=== PATIENT | male | born 1990 | race Caucasian/White ===

== ENCOUNTER 2021-04-06 22:27 | Emergency (ER) | payer BC, SELFPAY ==
[2021-04-06 22:44] VITALS: BP 120/78; PULSE 121; RESP 28; TEMP 38.3; O2SAT 95; BMI 48.1
--- NOTE | 2021-04-06 22:52 | CT_ITS ---
PROCEDURE INFORMATION: Exam: CTA Chest With Contrast Exam date and time: 04/06/2021 10:52 PM Age: 30 years old Clinical indication: Sternal or substernal pain; Patient HX: SOA, covid positive, smoker, chest pain in center of chest; Additional info: Shortness of air, covid TECHNIQUE: Imaging protocol: Computed tomographic angiography of the chest with contrast. 3D rendering (Not supervised by radiologist): MIP and/or 3D reconstructed images were created by the technologist. Total images: 988 Radiation optimization: All CT scans at this facility use at least one of these dose optimization techniques: automated exposure control; mA and/or kV adjustment per patient size (includes targeted exams where dose is matched to clinical indication); or iterative reconstruction. Contrast material: 370 ISOVUE; Contrast volume: 70 ml; Contrast route: INTRAVENOUS (IV); COMPARISON: CR XR CHEST 2V 04/06/2021 11:14 PM FINDINGS: Pulmonary arteries: The pulmonary arteries enhance appropriately with no evidence of pulmonary embolism. Aorta: The aorta enhances appropriately without evidence of dissection or aneurysm. No mediastinal hematoma. Thyroid: The visualized thyroid gland demonstrates no gross abnormality. Lungs: Granulomatous calcifications in the left lung base. Mild bilateral bronchial wall thickening suggesting an element of bronchitis or bronchial edema, with no evidence of bronchiectasis or bronchial occlusions. Multifocal rounded predominantly peripheral alveolar opacities bilaterally consistent with multifocal pneumonia. Commonly reported imaging features of COVID-19 pneumonia are present. Other processes such as influenza pneumonia and organizing pneumonia, as can be seen with drug toxicity and connective tissue disease, can cause a similar imaging pattern. No pulmonary mass lesions are identified. Pleural spaces: No pleural effusion. No pneumothorax. Heart: Heart size normal. No pericardial effusion. Mediastinal space: The esophagus is largely contracted but demonstrates no gross abnormality. 12 mm calcification adjacent to the distal esophagus likely representing a granulomatous calcification. Lymph nodes: No supraclavicular or axillary adenopathy. No mediastinal or hilar adenopathy. Liver: Moderate fatty infiltration of the liver. Spleen: Granulomatous calcifications in the spleen without acute splenic abnormality. Bones/joints: No acute osseous abnormalities are identified. Bridging ossification across multiple mid and lower thoracic spine segments suggesting diffuse idiopathic skeletal hyperostosis (DISH). Soft tissues: The soft tissues of the chest wall demonstrate no acute abnormality. IMPRESSION: 1. No evidence of pulmonary embolism or aortic dissection. 2. Multifocal bilateral alveolar opacities consistent with multifocal pneumonia. 3. Evidence of DISH in the thoracic spine. 4. Fatty liver.
--- NOTE | 2021-04-06 22:52 | XR_ITS ---
PROCEDURE INFORMATION: Exam: XR Chest Exam date and time: 04/06/2021 10:52 PM Age: 30 years old Clinical indication: Sternal or substernal pain; Patient HX: SOA, chest pain, cough, smoker, covid positive; Additional info: Shortness of air TECHNIQUE: Imaging protocol: XR of the chest. Views: 2 views. Total images: 2 COMPARISON: No relevant prior studies available. FINDINGS: Lungs: Low lung volumes. Pulmonary vasculature grossly normal. Multifocal bilateral alveolar opacities consistent with multifocal pneumonia. Pleural spaces: No pleural effusion. No pneumothorax. Heart/Mediastinum: Heart size normal. No tracheal/mediastinal shift. Bones/joints: No acute osseous abnormalities are identified. IMPRESSION: Multifocal bilateral alveolar opacities consistent with multifocal pneumonia.
--- NOTE | 2021-04-06 22:54 | ECG_ITS ---
APPROVED REPORT Exam: Resting ECG HR:122 bpm ECG Measurements Heart Rate 122 AXES MI 156 P 24 QRSd 76 QRS -17 QT 296 T 64 QTc 421 Conclusion Sinus tachycardia Septal infarct, age undetermined Abnormal ECG Electronically signed by : Rickie Cueva MD 04/07/2021 16:54:52
[2021-04-06 22:57] LABS: Influenza A, PCR Not Detected (NotDetected); Influenza B, PCR Not Detected (NotDetected)
[2021-04-06 22:59] LABS: Basophils # 0.1 K/mm3 (0-0.2); Basophils % 2.3 % (0.1-2.0); Eosinophils % 0.3 % (0.1-12.0); Hematocrit 48.9 % (42.0-52.0); Hemoglobin 16.8 g/dL (14.1-18.0); Mean Corpuscular HGB Conc 34.4 g/dL (31.8-35.4); Mean Corpuscular Volume 84.4 fl (80-94); Mean Platelet Volume 7.6 fl (7.4-10.4); Monocytes # 0.5 K/mm3 (0.1-1.0); Monocytes % 8.5 % (1.7-9.3); Neutrophils # 4.2 K/mm3 (1.8-7.8); Neutrophils % 71.9 % (37.0-80.0); Platelet Count 112 K/mm3 (142-424); Red Blood Count 5.79 M/mm3 (4.60-6.20); Red Cell Distribution Width 13.7 % (11.5-17.5); White Blood Count 5.9 K/mm3 (4.8-10.8)
[2021-04-06 23:00] VITALS: BP 115/83; PULSE 126; O2SAT 92
[2021-04-06 23:00] LABS: Potassium 4.2 mmoL/L (3.5-5.1); Sodium 136 mmol/L (136-145)
[2021-04-06 23:01] LABS: Chloride 101 mmol/L (98-107)
[2021-04-06 23:03] LABS: Alanine Aminotransferase 98 U/L (12-78); Albumin Level 4.5 g/dl (3.5-5.0); Albumin/Globulin Ratio 1.8 (1.1-1.8); Alkaline Phosphatase 61 U/L (38-126); Anion Gap 13.2 mEq/L (5-15); Aspartate Amino Transferase 95 U/L (17-59); Bilirubin,Total 0.8 mg/dl (0.2-1.3); Blood Urea Nitrogen 10 mg/dl (9-20); Carbon Dioxide 26 mmol/L (22.0-30.0); Creatinine Clearance Estimated 140 mL/min (50-200); Estimated Glomerular Filt Rate 99 ml/min (>60); GFR (African American) 120 ML/MIN (>60); Globulin 2.5 g/dL (1.3-3.2)
[2021-04-06 23:04] LABS: Calcium 8.5 mg/dl (8.4-10.2); Glucose 121 mg/dl (74-100)
[2021-04-06 23:18] LABS: Coronavirus 19, PCR Detected (NotDetected)
[2021-04-06 23:21] LABS: Troponin I < 0.01 ng/ml (0.00-0.034)
--- NOTE | 2021-04-07 00:47 | HMH.EDSOB ---
ED Disposition Clinical Impression: COVID-19 with pulmonary comorbidity Obesity Qualifiers: Obesity type: due to excess calories Obesity classification: adult class 3 (BMI >= 40) Serious obesity comorbidity presence: with serious comorbidity Body mass index: BMI 45.0-49.9 Qualified Code(s): E66.01 - Morbid (severe) obesity due to excess calories; Z68.42 - Body mass index [BMI] 45.0-49.9, adult Disposition: Home, Self-Care Condition on Discharge: Good Instructions: DI for COVID-19 (Suspected or Confirmed ) Additional Instructions: call pcp for follow up Prescriptions: predniSONE [Prednisone 20mg Tab] 20 mg PO BID #10 tab Transmission Status: Pending to [facility]/pharmacy #[id number] Azithromycin [Zithromax 250mg tab] 250 mg PO DIRECTED #6 tab Transmission Status: Pending to [facility]/pharmacy #[id number] ondansetron HCL [Zofran 4mg Tab] 4 mg PO TID #15 tab Transmission Status: Pending to [facility]/pharmacy #[id number] Referrals: Rickie Munguia MD [Primary Care Provider] - - Critical Care Critical Care Time: No Attestation: On 04/06/21, the high probability of a clinically significant, sudden or life threatening deterioration of the following system(s) required my full and direct attention, intervention and personal management. The time I documented below is in addition to time spent performing reported procedures but includes the following listed in this critical care notation. Medical Decision Making - Medical Records Medical records reviewed: Yes: I reviewed the patient's medical records. - Arian Inquiry Pt receiving controlled substance: No Vital Signs: 04/06/21 22:44 04/06/21 23:00 Temperature 100.9 F H Temperature Source Oral Pulse Rate 126 H Pulse Rate [Right Brachial] 121 H Respiratory Rate 28 H Blood Pressure 115/83 Blood Pressure [Right Arm] 120/78 Blood Pressure Mean [Right Arm] 92 Blood Pressure Source [Right Arm] Automatic Cuff Blood Pressure Position [Right Arm] Sitting 02 Sat by Pulse Oximetry 95 92 L Oxygen Delivery Method Room Air - Lab Data Lab results reviewed: Yes: I reviewed the patient's lab results. Lab Results 04/06/21 22:48: WBC 5.9, RBC 5.79, Hgb 16.8, Hct 48.9, MCV 84.4, MCH 29.0, MCHC 34.4, RDW 13.7, Plt Count 112 L, MPV 7.6, Neut % (Auto) 71.9, Lymph % (Auto) 17.0, [place] % (Auto) 8.5, Eos % (Auto) 0.3, Baso % (Auto) 2.3 H, Neut # (Auto) 4.2, Lymph # (Auto) 1.0, [place] # (Auto) 0.5, Eos # (Auto) 0.0, Baso # (Auto) 0.1 04/06/21 22:48: Sodium 136, Potassium 4.2, Chloride 101, Carbon Dioxide 26, Anion Gap 13.2, BUN 10, Creatinine 0.90, Estimated Creat Clear 140, Estimated GFR 99, Est GFR ( Amer) 120, Glucose 121 H, Calcium 8.5, Total Bilirubin 0.8, AST 95 H, ALT 98 H, Alkaline Phosphatase 61, Total Protein 7.0, Albumin 4.5, Globulin 2.5, Albumin/Globulin Ratio 1.8 04/06/21 22:48: SARS-CoV-2 (PCR) Detected A, Influenza A Untype (PCR) Not detected, Influenza Type B (PCR) Not detected 04/06/21 22:48: Troponin I < 0.01 Result diagrams: 04/06/21 22:48 04/06/21 22:48 Orders (Tests/Meds): ED MEDICATIONS Generic Name Dose Route Start Last Admin Trade Name Freq PRN Reason Stop Dose Admin Sodium Chloride 1,000 mls @ 999 mls/hr 04/06/21 23:00 04/06/21 22:57 Sod Chlor 0.9% 1000ml Bag IV 04/07/21 00:00 999 mls/hr .Q1H1M ERNESTO Administration Discontinued Medications Generic Name Dose Route Start Last Admin Trade Name Freq PRN Reason Stop Dose Admin Dexamethasone Sodium Phosphate 10 mg 04/06/21 22:53 04/06/21 22:56 Dexamethasone 4mg/Ml 5ml Mdv IV 04/06/21 22:54 10 mg ONCE ONE Administration Iopamidol 70 ml 04/06/21 23:57 04/06/21 23:58 Iopamidol-370 (76%);100ml Bottle IV 04/06/21 23:58 70 ml ONCE ONE Administration Ketorolac Tromethamine 30 mg 04/06/21 22:53 04/06/21 22:56 Ketorolac 30mg/Ml Vial IV 04/06/21 22:54 30 mg ONCE ONE Administration Ondansetron HCl 4 mg 04/06/21 22:53 04/06/21 22:56 Ondansetron 4mg/2ml Vial
[2021-04-07 01:00] VITALS: BP 125/86; PULSE 88; RESP 19; TEMP 37.2; O2SAT 98
== END 2021-04-07 01:10 | disposition home or self-care (01) ==
PROVIDERS: Emergency Provider Emergency Medicine; PCP Family Medicine
DX: U07.1 COVID-19 (principal); E66.01 Morbid (severe) obesity due to excess calories; Z68.42 Body mass index [BMI] 45.0-49.9, adult
CPT/HCPCS: 71046; 71275; 80053; 84484; 85025; 93005; 96365; 96375; 99283; J2405; Q9967; U0003

== ENCOUNTER 2021-04-08 18:44 | Inpatient (IN) | payer BC, SELFPAY ==
[2021-04-08] VITALS (7 sets, daily range): BP systolic 106–131; BP diastolic 64–86; PULSE 90–118; RESP 18–28; TEMP 36.8–38.4; O2SAT 92–98; BMI 47.5
--- NOTE | 2021-04-08 19:19 | ECG_ITS ---
APPROVED REPORT Exam: Resting ECG HR:85 bpm ECG Measurements Heart Rate 85 AXES DE 152 P 10 QRSd 78 QRS -13 QT 334 T 35 QTc 397 Conclusion Normal sinus rhythm Inferior infarct, age undetermined Abnormal ECG Electronically signed by : Rickie Cueva MD 04/12/2021 11:52:14
--- NOTE | 2021-04-08 19:20 | XR_ITS ---
PROCEDURE INFORMATION: Exam: XR Chest Exam date and time: 04/08/2021 7:20 PM Age: 30 years old Clinical indication: Shortness of breath and other: Covid 19 positive; Additional info: Shortness of air covid positive TECHNIQUE: Imaging protocol: XR of the chest. Views: 1 view. COMPARISON: CR XR CHEST 2V 04/06/2021 11:14 PM FINDINGS: Airway: Patent Lungs: Bilateral ground-glass and patchy airspace opacities are seen scattered throughout the lungs. Pleural spaces: Unremarkable. No pleural effusion. No pneumothorax. Heart/Mediastinum: Unremarkable. No cardiomegaly. Bones/joints: No acute skeletal abnormality or aggressive osseous lesion. IMPRESSION: Moderate, diffuse, and bilateral acute airspace disease compatible with COVID-19 pneumonia in this patient with a positive history.
--- NOTE | 2021-04-08 19:43 | PC.NURSE ---
pt adamant he doesn't want to have ct completed.
[2021-04-08 19:57] LABS: Basophils % 0.4 % (0.1-2.0); Hemoglobin 15.2 g/dL (14.1-18.0); Lymphocytes # 1.3 K/mm3 (0.7-4.5); Lymphocytes % 14.3 % (10-50); Mean Corpuscular HGB Conc 35.4 g/dL (31.8-35.4); Mean Corpuscular Hemoglobin 29.7 pg (27.0-31.2); Mean Corpuscular Volume 83.9 fl (80-94); Monocytes # 0.7 K/mm3 (0.1-1.0); Monocytes % 7.5 % (1.7-9.3); Neutrophils % 77.8 % (37.0-80.0); Platelet Count 147 K/mm3 (142-424); Red Blood Count 5.12 M/mm3 (4.60-6.20)
[2021-04-08 20:03] LABS: Alanine Aminotransferase 65 U/L (12-78); Albumin Level 3.6 g/dl (3.5-5.0); Albumin/Globulin Ratio 1.5 (1.1-1.8); Alkaline Phosphatase 47 U/L (38-126); Anion Gap 11.7 mEq/L (5-15); Aspartate Amino Transferase 87 U/L (17-59); Bilirubin,Total 1.2 mg/dl (0.2-1.3); Blood Urea Nitrogen 13 mg/dl (9-20); Carbon Dioxide 25 mmol/L (22.0-30.0); Chloride 98 mmol/L (98-107); Creatinine Clearance Estimated 179 mL/min (50-200); Estimated Glomerular Filt Rate 132 ml/min (>60); GFR (African American) 160 ML/MIN (>60); Globulin 2.4 g/dL (1.3-3.2); Glucose 116 mg/dl (74-100); Potassium 3.7 mmoL/L (3.5-5.1); Sodium 131 mmol/L (136-145)
[2021-04-08 20:16] LABS: NT Pro Brain Natriuretic Pep. 66.5 pg/mL (0-125)
[2021-04-08 20:20] LABS: Procalcitonin 0.317 ng/mL (0.0-2.0); Troponin I < 0.01 ng/ml (0.00-0.034)
--- NOTE | 2021-04-08 20:54 | HMH.EDSOB ---
ED Disposition Clinical Impression: COVID-19 with pulmonary comorbidity Disposition: Admitted As Inpatient Condition on Discharge: Good - Critical Care Critical Care Time: No Attestation: On 04/08/21, the high probability of a clinically significant, sudden or life threatening deterioration of the following system(s) required my full and direct attention, intervention and personal management. The time I documented below is in addition to time spent performing reported procedures but includes the following listed in this critical care notation. Medical Decision Making - Medical Records Medical records reviewed: Yes: I reviewed the patient's medical records. - Arian Inquiry Pt receiving controlled substance: No Vital Signs: 04/08/21 19:14 Temperature 101.2 F H Temperature Source Oral Pulse Rate [Right Brachial] 118 H Respiratory Rate 28 H Blood Pressure [Right Arm] 127/71 Blood Pressure Mean [Right Arm] 89 Blood Pressure Source [Right Arm] Automatic Cuff Blood Pressure Position [Right Arm] Sitting 02 Sat by Pulse Oximetry 92 L Oxygen Delivery Method Room Air - Lab Data Lab results reviewed: Yes: I reviewed the patient's lab results. Lab Results 04/08/21 19:40: WBC 9.0 D, RBC 5.12, Hgb 15.2, Hct 43.0, MCV 83.9, MCH 29.7, MCHC 35.4, RDW 14.0, Plt Count 147 D, MPV 8.0, Neut % (Auto) 77.8, Lymph % (Auto) 14.3, [place] % (Auto) 7.5, Eos % (Auto) 0.0 L, Baso % (Auto) 0.4, Neut # (Auto) 7.0, Lymph # (Auto) 1.3, [place] # (Auto) 0.7, Eos # (Auto) 0.0, Baso # (Auto) 0.0 04/08/21 19:40: Sodium 131 L, Potassium 3.7, Chloride 98, Carbon Dioxide 25, Anion Gap 11.7, BUN 13 D, Creatinine 0.70 D, Estimated Creat Clear 179, Estimated GFR 132, Est GFR ( Amer) 160 D, Glucose 116 H, Calcium 8.0 L, Total Bilirubin 1.2, AST 87 H, ALT 65 D, Alkaline Phosphatase 47, Troponin I < 0.01, NT-Pro-B Natriuret Pep 66.5, Total Protein 6.0 L, Albumin 3.6, Globulin 2.4, Albumin/Globulin Ratio 1.5 04/08/21 19:40: Procalcitonin 0.317 Result diagrams: 04/08/21 19:40 04/08/21 19:40 Orders (Tests/Meds): ED MEDICATIONS Generic Name Dose Route Start Last Admin Trade Name Freq PRN Reason Stop Dose Admin Sodium Chloride 1,000 mls @ 999 mls/hr 04/08/21 19:30 04/08/21 19:30 Sod Chlor 0.9% 1000ml Bag IV 04/08/21 20:30 999 mls/hr .Q1H1M ERNESTO Administration Discontinued Medications Generic Name Dose Route Start Last Admin Trade Name Freq PRN Reason Stop Dose Admin Acetaminophen 1,000 mg 04/08/21 19:19 04/08/21 19:28 Acetaminophen 500mg Tab PO 04/08/21 19:20 1,000 mg ONCE ONE Administration Dexamethasone Sodium Phosphate 10 mg 04/08/21 19:19 04/08/21 19:28 Dexamethasone 4mg/Ml 5ml Mdv IV 04/08/21 19:20 10 mg ONCE ONE Administration Ketorolac Tromethamine 30 mg 04/08/21 19:19 04/08/21 19:29 Ketorolac 30mg/Ml Vial IV 04/08/21 19:20 30 mg ONCE ONE Administration Ondansetron HCl 4 mg 04/08/21 19:28 04/08/21 19:29 Ondansetron 4mg/2ml Vial IV 04/08/21 19:29 4 mg ONCE ONE Administration ORDERS Category Date Time Status Lactic Acid Stat Lab 04/08/21 19:32 Ordered Troponin I Q3H Lab 04/08/21 22:30 Ordered Troponin I Q3H Lab 04/09/21 01:30 Ordered Blood Culture Stat Micro 04/08/21 19:32 Ordered - Radiology Data #1 Image(s): Chest Image Reviewed: Yes I reviewed the patient's radiology image, Yes I have reviewed radiologist's interpretation Preliminary Findings: Abnormal - ECG Data Tracing #1 Normal Sinus Rhythm: Yes Ischemic changes: non-specific ST-T wave changes - Physician Consults Physician Consulted: kathi Reason -: Admission Medical Decision Narrative: progressive sx with covid-19with confusion/fever/abn cxr - no enceph or meningitis Resp/SOB HPI - General Chief Complaint: Shortness of Breath/Dyspnea Stated Complaint: covid+, fever, soa Time Seen by Provider: 04/08/21 20:00 Mode of Arrival: Family Vehicle Source of Information:
--- NOTE | 2021-04-08 21:55 | PC.NURSE ---
speaking with dr armenta and dr wick.
[2021-04-08 22:50] LABS: Ferritin 1320 ng/ml (17.9-464)
[2021-04-09] VITALS: BP 111/56; PULSE 91; RESP 20; TEMP 36.7; O2SAT 89
--- NOTE | 2021-04-09 03:45 | PC.NURSE ---
Patient is a new admission this shift. He is alert and oriented x4. He is ambulatory. Patient has 18 in his right hand with NS @ 100. Patient lung sounds are diminished throughout. He has rested well since his arrival to the unit. Patient is on 2L NC. Vital signs are stable, will continue to monitor.
[2021-04-09 04:00] VITALS: BP 123/51; PULSE 87; RESP 18; TEMP 36.3; O2SAT 90
--- NOTE | 2021-04-09 05:01 | PC.NURSE ---
Bed unable to weigh. Standing scale unavailable
[2021-04-09 06:34] LABS: Basophils # 0.1 K/mm3 (0-0.2); Basophils % 0.9 % (0.1-2.0); Eosinophils % 0.1 % (0.1-12.0); Hematocrit 42.8 % (42.0-52.0); Hemoglobin 14.8 g/dL (14.1-18.0); Lymphocytes % 14.3 % (10-50); Mean Corpuscular HGB Conc 34.6 g/dL (31.8-35.4); Mean Corpuscular Hemoglobin 29.7 pg (27.0-31.2); Mean Corpuscular Volume 85.6 fl (80-94); Mean Platelet Volume 8.1 fl (7.4-10.4); Monocytes # 0.6 K/mm3 (0.1-1.0); Monocytes % 8.2 % (1.7-9.3); Neutrophils # 5.5 K/mm3 (1.8-7.8); Neutrophils % 76.6 % (37.0-80.0); Platelet Count 126 K/mm3 (142-424); Red Cell Distribution Width 13.8 % (11.5-17.5); White Blood Count 7.1 K/mm3 (4.8-10.8)
[2021-04-09 06:46] LABS: Chloride 102 mmol/L (98-107); Potassium 5.1 mmoL/L (3.5-5.1); Sodium 135 mmol/L (136-145)
[2021-04-09 06:49] LABS: Anion Gap 13.1 mEq/L (5-15); Blood Urea Nitrogen 13 mg/dl (9-20); Carbon Dioxide 25 mmol/L (22.0-30.0); Creatinine Clearance Estimated 209 mL/min (50-200); Estimated Glomerular Filt Rate 158 ml/min (>60); GFR (African American) 191 ML/MIN (>60)
[2021-04-09 06:50] LABS: Calcium 8.1 mg/dl (8.4-10.2); Glucose 142 mg/dl (74-100); Magnesium 1.7 mg/dl (1.6-2.3)
[2021-04-09 08:00] VITALS: BP 121/80; PULSE 89; RESP 20; TEMP 36.7; O2SAT 94
[2021-04-09 09:57] LABS: Mycoplasma Pneumo IGM (Rapid) Non-Reactive (Non-Reactiv)
--- NOTE | 2021-04-09 11:22 | P.CONPHA_ITS ---
[facility] Pharmacy VTE Monitoring - Patient Demographics Admission date: 04/09/21 Report Date: 04/09/21 Time: 11:22 Allergies/Adverse Reactions: Patient Allergies No Known Allergies Allergy (Verified 04/06/21 22:49) Height: 1.88 m Weight: 167.829 kg Patient Problems: Current Active Problems COVID-19 with pulmonary comorbidity (Acute) - VTE Risk Labs: VTE Related Lab Results Hgb 14.8 g/dL (14.1-18.0) 04/09/21 05:50 Hct 42.8 % (42.0-52.0) 04/09/21 05:50 Plt Count 126 K/mm3 (142-424) L 04/09/21 05:50 BUN 13 mg/dl (9-20) 04/09/21 05:50 Creatinine 0.60 mg/dl (0.66-1.25) L 04/09/21 05:50 Estimated Creat Clear 209 mL/min (50-200) 04/09/21 05:50 VTE Score: 1 VTE Risk Level: Very Low Risk - Prophylaxis Types of VTE Prophylaxis: TEDS Knee High (HERSON HOSE AND LOVENOX), Pharmacological Pharmacologic Type: Enoxaparin
--- NOTE | 2021-04-09 11:25 | HMH.HP ---
*Admission Date: 04/09/21 *Chief complaint: Shortness of breath *History of present illness: Patient is a 30 [address] old patient of [address] Ekaterina Tinoco in [place], [place] who presented to [facility] ER last night complaining of progressively worse shortness of breath. Patient states he started feeling bad about 1 week ago and was diagnosed with Covid-19 on 04/03/21. His initial symptom was fatigue but he has since developed fever, cough, nasal congestion and shortness of breath. He has a history of HTN and obesity but no other medical problems. Patient was seen in the ER a few days ago and was started on Zithromax, Prednisone and Zofran. He was scheduled for an antibody infusion today but states he felt much worse last night so he came back to the ER. [facility] History Medical History: Reports:: Hypertension Denies:: Cancer, Diabetes Mellitus Type 1, Diabetes Mellitus Type 2, MRSA *Have you ever received a pneumonia vaccine?: No *Have you received a flu vaccine this season?: No Other Surgeries: Yes: No Previous Surgery Amputation: No - *Social History Last grade of school completed: High school graduate Smoking Status: Current every day smoker Tobacco Type: cigarettes # Packs/Day (cigarettes): 1 Alcohol Intake: never Alcohol Intake Frequency:: holidays/special occasions only *Occupational Status:: employed Household Members: spouse *Travel in the last 8 weeks: None Family Hx:: Hypertension Review of Systems - Constitutional Reports body ache(s), Reports chills, Reports fever(s) - Eyes Denies blurry vision - ENT Denies bleeding gums - *Cardiovascular Denies chest pain - *Respiratory Reports cough - *Gastrointestinal Reports nausea, Denies abdominal pain, Denies vomiting - *Genitourinary Denies difficulty urinating - *Musculoskeletal Denies joint pain - Integumentary/Breasts Denies rash - *Neurologic Reports headache(s), Denies dizziness, Denies localized weakness, Denies seizure-like activity - Psychiatric Denies confusion Meds Home Medications Medication Instructions Recorded Confirmed Type Fluticasone Propionate 1 spray IH DAILY 04/06/21 04/08/21 History allopurinoL [Allopurinol 100mg 100 mg PO DAILY 04/06/21 04/09/21 History tablet] lisinopriL [Lisinopril] 10 mg PO DAILY 04/06/21 04/09/21 History ondansetron HCL [Zofran 4mg Tab] 4 mg PO TID #15 tab 04/07/21 04/08/21 Rx Azithromycin [Zithromax 250mg 250 mg PO DIRECTED 04/08/21 04/08/21 History tab] predniSONE [Prednisone 20mg 20 mg PO BID 04/08/21 04/08/21 History Tab] Allergies Allergy/AdvReac Type Severity Reaction Status Date / Time No Known Allergies Allergy Verified 04/06/21 22:49 Exam Vital signs and Labs for Last 24 Hours: Temp Pulse Resp BP Pulse Ox 98.1 F 89 20 121/80 94 L 04/09/21 08:00 04/09/21 08:00 04/09/21 08:00 04/09/21 08:00 04/09/21 08:00 Laboratory Results - last 24 hr 04/08/21 19:40: WBC 9.0 D, RBC 5.12, Hgb 15.2, Hct 43.0, MCV 83.9, MCH 29.7, MCHC 35.4, RDW 14.0, Plt Count 147 D, MPV 8.0, Neut % (Auto) 77.8, Lymph % (Auto) 14.3, [place] % (Auto) 7.5, Eos % (Auto) 0.0 L, Baso % (Auto) 0.4, Neut # (Auto) 7.0, Lymph # (Auto) 1.3, [place] # (Auto) 0.7, Eos # (Auto) 0.0, Baso # (Auto) 0.0 04/08/21 19:40: Sodium 131 L, Potassium 3.7, Chloride 98, Carbon Dioxide 25, Anion Gap 11.7, BUN 13 D, Creatinine 0.70 D, Estimated Creat Clear 179, Estimated GFR 132, Est GFR ( Amer) 160 D, Glucose 116 H, Calcium 8.0 L, Total Bilirubin 1.2, AST 87 H, ALT 65 D, Alkaline Phosphatase 47, Troponin I < 0.01, NT-Pro-B Natriuret Pep 66.5, Total Protein 6.0 L, Albumin 3.6, Globulin 2.4, Albumin/Globulin Ratio 1.5 04/08/21 19:40: Procalcitonin 0.317 04/08/21 19:40: Ferritin 1320 H 04/09/21 05:50: WBC 7.1, RBC 5.00, Hgb 14.8, Hct 42.8, MCV 85.6, MCH 29.7, MCHC 34.6, RDW 13.8, Plt Count 126 L, MPV 8.1, Neut % (Auto) 76.6, Lymph % (Auto) 14.3, [place] % (Auto) 8.2, Eos % (Auto) 0.1, Baso % (Auto) 0.9, Neut # (Auto) 5.
[2021-04-09 11:43] VITALS: BP 127/82; PULSE 89; RESP 20; TEMP 36.7; O2SAT 92
[2021-04-09 14:14] LABS: Lactic Acid 0.9 mmol/L (0.7-2.1)
[2021-04-09 15:45] VITALS: BP 107/74; PULSE 95; RESP 18; TEMP 37.4; O2SAT 93
--- NOTE | 2021-04-09 16:39 | PC.NURSE ---
PT IS AOX4, ABLE TO MAKE NEEDS KNOWN TO STAFF, HE HAS AMBULATED IN ROOM INDEPENDENTLY. CAN TAKE SELF TO BATHROOM NEEDED, HE HAS NOT C/O PAIN OR N/V/D, HE STILL REQUIRES 2LNC FOR O2 SUPPORT, LUNGS SOUNDS ARE DIMINISHED T/O BILATERALLY, ABD IS ROUND FIRM BUT NON-TENDER WITH ACTIVE BOWEL SOUNDS, PT MADE THIS NURSE AWARE THAT SOME BLOOD TINGED SPUTUM WAS EXPECTORATED INTO THE TOILET AND A SMALL AMOUNT WAS VISUALIZED, PT HAS BEEN NORMOTENSIVE THIS SHIFT, LISINOPRIL WAS HELD THIS AM. A TEMPERATURE OF 99.3 WAS NOTED. CALL LIGHT WITHIN REACH AND NO NEEDS VOICED AT THIS TIME.
[2021-04-09 20:00] VITALS: BP 150/85; PULSE 117; RESP 28; TEMP 37.8; O2SAT 92; O2SAT 94
[2021-04-10] VITALS (7 sets, daily range): BP systolic 122–164; BP diastolic 74–91; PULSE 94–105; RESP 18–28; TEMP 36.8–37.8; O2SAT 90–93; BMI 47.5
--- NOTE | 2021-04-10 03:23 | PC.NURSE ---
Patient is alert and oriented x4. Patient had complaints of coughing up bloody sputum at the beginning of the shift. A sputum was obtained and sent to lab. Patient was febrile at the beginning of shift and was treated with Tylenol prior to this shift and then ibuprofen. Patient has thus remained afebrile. Patient's oxygen was turned up to 3L NC due to oxygen saturation dropping below 90s. Patient has maintained a oxygen saturation on 3L of 90-93%. Vital signs are stable, call light within reach, will continue to monitor.
[2021-04-10 06:32] LABS: Chloride 102 mmol/L (98-107); Potassium 3.8 mmoL/L (3.5-5.1); Sodium 135 mmol/L (136-145)
[2021-04-10 06:34] LABS: Bilirubin,Unconjugated 0.5 mg/dL (0.0-1.1); Blood Urea Nitrogen 10 mg/dl (9-20); Creatinine Clearance Estimated 209 mL/min (50-200); Estimated Glomerular Filt Rate 158 ml/min (>60); GFR (African American) 191 ML/MIN (>60)
[2021-04-10 06:35] LABS: Alanine Aminotransferase 56 U/L (12-78); Albumin Level 3.1 g/dl (3.5-5.0); Alkaline Phosphatase 45 U/L (38-126); Anion Gap 8.8 mEq/L (5-15); Aspartate Amino Transferase 69 U/L (17-59); Bilirubin,Direct 0.6 mg/dl (0.0-0.4); Bilirubin,Indirect 0.5 mg/dL (0.0-0.9); Bilirubin,Total 1.1 mg/dl (0.2-1.3); Calcium 7.9 mg/dl (8.4-10.2); Carbon Dioxide 28 mmol/L (22.0-30.0); Glucose 122 mg/dl (74-100); Total Protein,Serum 5.4 g/dl (6.3-8.2)
--- NOTE | 2021-04-10 08:42 | P.PN_ITS ---
Internal Medicine - PN: Subj *Date: 04/10/21 *Time: 09:18 Interval history: Pt feels a little better today, febrile overnight. Exam Vital signs and Labs for Last 24 Hours: Temp Pulse Resp BP Pulse Ox 98.9 F 95 H 20 146/77 H 93 L 04/10/21 08:00 04/10/21 08:00 04/10/21 08:00 04/10/21 08:00 04/10/21 08:00 Laboratory Results - last 24 hr 04/09/21 05:50: Mycoplasma pneumon IgM Non-reactive 04/09/21 13:53: Lactate 0.9 04/10/21 05:30: Sodium 135 L, Potassium 3.8 D, Chloride 102, Carbon Dioxide 28, Anion Gap 8.8, BUN 10, Creatinine 0.60 L, Estimated Creat Clear 209, Estimated GFR 158, Est GFR ( Amer) 191, Glucose 122 H, Calcium 7.9 L, Total Bilir ubin 1.1, Direct Bilirubin 0.6 H, Conjugated Bilirubin 0.0, Indirect Bilirubin 0.5, Unconjugated Bilirubin 0.5, AST 69 H, ALT 56, Alkaline Phosphatase 45, Total Protein 5.4 L, Albumin 3.1 L D Vital Signs - 24 hr 04/09/21 11:43 04/09/21 15:45 04/09/21 20:00 Temperature 98.0 F 99.3 F 100.1 F H Pulse Rate [Right Brachial] 89 95 H 117 H Respiratory Rate 20 18 28 H Blood Pressure [Right Arm] 127/82 107/74 L 150/85 H 02 Sat by Pulse Oximetry 92 L 93 L 94 L 04/10/21 00:00 04/10/21 04:00 04/10/21 08:00 Temperature 98.8 F 100.0 F H 98.9 F Pulse Rate [Right Brachial] 102 H 101 H 95 H Respiratory Rate 28 H 28 H 20 Blood Pressure [Right Arm] 135/86 164/91 H 146/77 H 02 Sat by Pulse Oximetry 90 L 90 L 93 L I & O for Last 24 hours: Intake & Output 04/07/21 04/08/21 04/09/21 04/10/21 23:59 23:59 23:59 23:59 Intake Total 1320 / 1320 2253 / 2253 Balance 1320 / 1320 2253 / 2253 Weight 370 lb Microbiology Reports for the Last 24 Hours: Microbiology 04/09/21 21:14 Sputum - Expectorated Sputum Gram Stain - Final - Constitutional no acute distress - *Routine Respiratory Exam Present: crackles (few). Absent: wheezes - *Routine Cardiovascular Exam Present: RRR Assessment and Plan (1) HTN (hypertension) Status: Acute Category: Medical Code(s): I10 - Essential (primary) hypertension (2) COVID-19 with pulmonary comorbidity Status: Acute Category: Medical Code(s): U07.1 - COVID-19; J98.4 - Other disorders of lung (3) Obesity Status: Acute Qualifiers: Obesity type: due to excess calories Obesity classification: adult class 3 (BMI >= 40) Serious obesity comorbidity presence: with serious comorbidity Body mass index: BMI 45.0-49.9 Qualified Code(s): E66.01 - Morbid (severe) obesity due to excess calories; Z68.42 - Body mass index [BMI] 45.0-49.9, adult Category: Medical Code(s): E66.9 - Obesity, unspecified (4) Pneumonia Status: Acute Category: Medical Code(s): J18.9 - Pneumonia, unspecified organism - Assessment and plan all Dx Assessment and Plan for all problems:: Continue current treatment.
--- NOTE | 2021-04-10 13:04 | CT_ITS ---
PROCEDURE: CT CHEST WO CON CLINICAL INDICATION: Hemoptysis Positive Covid19 COMPARISON: CT CT ANGIO CHEST PE PROTOCOL from 04/06/2021 TECHNIQUE: Axial images obtained with sagittal and coronal reformats. All CT scans at the facility use one or more dose reduction, viz: automated exposure control, ma/kV adjustment per patient size (including targeted exams where dose is matched to indication, i.e. head), or iterative reconstruction technique. FINDINGS: HEART AND MEDIASTINAL STRUCTURES: Initially, contrast leaked at the patient's IV site. The scan was repeated and then the IV infiltrated. Patient refused additional contrast infusion. No large central pulmonary embolus was evident on the initial scan. Peripheral pulmonary vessels are not opacified well enough to evaluate for pulmonary embolus. No evidence of aortic aneurysm. LUNGS AND PLEURAL SPACES: Multifocal areas of consolidation consistent with Covid19 pneumonia which has progressed since the previous exam. This is in both upper and lower lobes bilaterally and right middle lobe. No effusions. No evidence of pneumothorax. BONY STRUCTURES: There is kyphosis. There is ankylosis of the thoracic spine. UPPER ABDOMEN: Hepatosplenomegaly with diffuse hepatic steatosis. ADDITIONAL FINDINGS: No other significant abnormalities. IMPRESSION: 1. No large central pulmonary emboli apparent. IV malfunction as described above. 2. Progression of multifocal areas of pneumonia consistent with Covid19 pneumonia 3. No evidence of pneumothorax Dictated by: Aamir Ramos MD 04/10/2021 18:02 Aamir Ramos MD in [place] 04/10/2021 18:02
--- NOTE | 2021-04-10 13:10 | HMH.ITSTN ---
MARTINA GOLDBERG, WILL LET US KNOW WHEN NEW IV IS ACCESSED. NEED A 20g IN AC
--- NOTE | 2021-04-10 16:00 | HMH.ITSTN ---
CONTRAST WAS INJECTED ON INITIAL SCAN AND IV LEAKED; PT WAS CLEANED UP AND IV TIGHTENED AND RE-TAPED; IV WAS FLUSHED AGAIN WITH ADEQUATE BLOOD RETURN AND WAS EASY TO FLUSH; WHEN RE-SCANNING, IV INFILTRATED. PT REFUSED ANOTHER IV WHILE IN SCAN ROOM; MARTINA GOLDBERG, WAS NOTIFIED BEFORE PT WENT BACK UPSTAIRS.
[2021-04-11] VITALS (7 sets, daily range): BP systolic 97–168; BP diastolic 51–96; PULSE 81–97; RESP 18–21; TEMP 36.5–37.3; O2SAT 91–94
--- NOTE | 2021-04-11 04:21 | PC.NURSE ---
PATIENT IS A7OX4. NO COMPLAINTS ON PAIN. STILL REMAINS ON 4L NC AND O2 SATURATIONS REMAIN IN THE LOWER TO MID 90'S. PATIENT WAS PLEASANT THROUGHOUT SHIFT AND RESTED SOME. VSS. NO FURTHER CONCERNS NOTED.
[2021-04-11 08:38] LABS: Chloride 102 mmol/L (98-107); Potassium 4.3 mmoL/L (3.5-5.1); Sodium 136 mmol/L (136-145)
[2021-04-11 08:41] LABS: Anion Gap 9.3 mEq/L (5-15); Blood Urea Nitrogen 10 mg/dl (9-20); Calcium 8.2 mg/dl (8.4-10.2); Carbon Dioxide 29 mmol/L (22.0-30.0); Creatinine Clearance Estimated 209 mL/min (50-200); Estimated Glomerular Filt Rate 158 ml/min (>60); GFR (African American) 191 ML/MIN (>60); Glucose 96 mg/dl (74-100)
[2021-04-11 08:43] LABS: Bilirubin,Unconjugated 0.5 mg/dL (0.0-1.1)
[2021-04-11 08:44] LABS: Alanine Aminotransferase 54 U/L (12-78); Albumin Level 3.3 g/dl (3.5-5.0); Alkaline Phosphatase 35 U/L (38-126); Aspartate Amino Transferase 71 U/L (17-59); Bilirubin,Direct 0.7 mg/dl (0.0-0.4); Bilirubin,Indirect 0.4 mg/dL (0.0-0.9); Bilirubin,Total 1.1 mg/dl (0.2-1.3); Total Protein,Serum 5.9 g/dl (6.3-8.2)
--- NOTE | 2021-04-11 09:10 | HMH.ACPN2 ---
Internal Medicine - PN: Subj *Date: 04/11/21 *Time: 09:10 Interval history: Supplemental O2 increased overnight. Patient has had some right low back pain. He states caused from a previous injury, typically treats with Ibuprofen. Exam Vital signs and Labs for Last 24 Hours: Temp Pulse Resp BP Pulse Ox 99.1 F 95 H 18 168/96 H 92 L 04/11/21 08:00 04/11/21 08:00 04/11/21 08:00 04/11/21 08:00 04/11/21 08:00 Laboratory Results - last 24 hr 04/11/21 07:20: Sodium 136, Potassium 4.3, Chloride 102, Carbon Dioxide 29, Anion Gap 9.3, BUN 10, Creatinine 0.60 L, Estimated Creat Clear 209, Estimated GFR 158, Est GFR ( Amer) 191, Glucose 96, Calcium 8.2 L 04/11/21 07:20: Total Bilirubin 1.1, Direct Bilirubin 0.7 H, Conjugated Bilirubin 0.0, Indirect Bilirubin 0.4, Unconjugated Bilirubin 0.5, AST 71 H, ALT 54, Alkaline Phosphatase 35 L, Total Protein 5.9 L, Albumin 3.3 L Vital Signs - 24 hr 04/10/21 11:48 04/10/21 16:00 04/10/21 20:00 Temperature 98.7 F 98.3 F 99.0 F Pulse Rate [Right Brachial] 105 H 98 H 94 H Respiratory Rate 18 20 18 Blood Pressure [Right Arm] 134/74 138/78 122/75 02 Sat by Pulse Oximetry 93 L 91 L 92 L 04/10/21 22:18 04/11/21 00:00 04/11/21 04:00 Temperature 98.3 F 98.3 F Pulse Rate [Right Brachial] 92 H 90 Respiratory Rate 20 18 Blood Pressure [Right Arm] 97/51 L 102/64 L 02 Sat by Pulse Oximetry 92 L 94 L 91 L 04/11/21 08:00 Temperature 99.1 F Pulse Rate [Right Brachial] 95 H Respiratory Rate 18 Blood Pressure [Right Arm] 168/96 H 02 Sat by Pulse Oximetry 92 L I & O for Last 24 hours: Intake & Output 04/08/21 04/09/21 04/10/21 04/11/21 23:59 23:59 23:59 23:59 Intake Total 1320 / 1320 2853 / 2973 1277 / 1277 Output Total 0 / 0 Balance 1320 / 1320 2853 / 2973 1277 / 1277 Weight 370 lb 370 lb 6.025 oz - Constitutional no acute distress - *Routine HEENT Exam Head: Present: normocephalic Eye: Present: EOMI, PERRL ENT: Present: mucous membranes moist - *Routine Neck Exam Present: supple. Absent: lymphadenopathy - *Routine Respiratory Exam Present: crackles (few). Absent: wheezes - *Routine Cardiovascular Exam Present: RRR - *Routine Abdominal Exam Present: soft, normoactive bowel sounds. Absent: tenderness - *Routine Extremities Exam Absent: cyanosis, clubbing, edema - *Routine Skin Exam Present: warm. Absent: rash - *Routine Neurological Exam Present: alert, oriented X3 Assessment and Plan (1) HTN (hypertension) Status: Acute Category: Medical Code(s): I10 - Essential (primary) hypertension (2) COVID-19 with pulmonary comorbidity Status: Acute Category: Medical Code(s): U07.1 - COVID-19; J98.4 - Other disorders of lung (3) Obesity Status: Acute Qualifiers: Obesity type: due to excess calories Obesity classification: adult class 3 (BMI >= 40) Serious obesity comorbidity presence: with serious comorbidity Body mass index: BMI 45.0-49.9 Qualified Code(s): E66.01 - Morbid (severe) obesity due to excess calories; Z68.42 - Body mass index [BMI] 45.0-49.9, adult Category: Medical Code(s): E66.9 - Obesity, unspecified (4) Pneumonia Status: Acute Category: Medical Code(s): J18.9 - Pneumonia, unspecified organism (5) Acute right-sided low back pain Status: Acute Category: Medical Code(s): M54.5 - Low back pain (6) Hypoxia Status: Acute Category: Medical Code(s): R09.02 - Hypoxemia - Assessment and plan all Dx Assessment and Plan for all problems:: Will add Ibuprofen today, continue current treatment.
[2021-04-12] VITALS (10 sets, daily range): BP systolic 120–139; BP diastolic 61–82; PULSE 74–91; RESP 19–21; TEMP 36.4–36.9; O2SAT 90–96; BMI 47.5
--- NOTE | 2021-04-12 03:05 | PC.NURSE ---
Patient is alert and oriented x4. Patient was pretty restless at the beginning of the shift stating I don't see why I cannot just go home . He has maintained his oxygen saturation in the low 90's on 3L NC. Patient complains of a dry nose. RT was asked to come and put humidified O2 but patient did not tolerate that well, stating I cannot seem to breathe . Humidification was removed, patient stated that's better . Patient has remained afebrile this shift. Vital signs are stable, call light within reach, will continue to monitor.
--- NOTE | 2021-04-12 05:36 | PC.NURSE ---
unable to get patient weight due to bed scale not working.
--- NOTE | 2021-04-12 05:37 | PC.NURSE ---
Addendum entered by Gisela Rosario RN 04/12/21 05:38: previous weight stated by patient upon admission. Original Note: unable to get patient weight due to bed not weighing and unable to obtain a scale.
[2021-04-12 08:11] LABS: Chloride 105 mmol/L (98-107); Sodium 139 mmol/L (136-145)
[2021-04-12 08:12] LABS: Potassium 4.1 mmoL/L (3.5-5.1)
[2021-04-12 08:14] LABS: Blood Urea Nitrogen 10 mg/dl (9-20); Creatinine Clearance Estimated 209 mL/min (50-200); Estimated Glomerular Filt Rate 158 ml/min (>60); GFR (African American) 191 ML/MIN (>60)
[2021-04-12 08:15] LABS: Anion Gap 9.1 mEq/L (5-15); Calcium 8.4 mg/dl (8.4-10.2); Carbon Dioxide 29 mmol/L (22.0-30.0); Glucose 119 mg/dl (74-100)
--- NOTE | 2021-04-12 08:47 | HMH.ACPN2 ---
<Gabriela White - Last Filed: 04/12/21 08:47> Internal Medicine - PN: Subj *Date: 04/12/21 *Time: 08:47 Interval history: Patient did not have a very good night. He states he had coughing spasms throughout the night.. He appears a little bit frightened today and is dyspneic with talking. He is voiding QS. He is eating without difficulty. He ambulates to the bathroom. Exam Vital signs and Labs for Last 24 Hours: Temp Pulse Resp BP Pulse Ox 98.4 F 86 20 127/74 90 L 04/12/21 08:00 04/12/21 08:00 04/12/21 08:00 04/12/21 08:00 04/12/21 08:00 Laboratory Results - last 24 hr 04/12/21 07:36: Sodium 139, Potassium 4.1, Chloride 105, Carbon Dioxide 29, Anion Gap 9.1, BUN 10, Creatinine 0.60 L, Estimated Creat Clear 209, Estimated GFR 158, Est GFR ( Amer) 191, Glucose 119 H, Calcium 8.4 I & O for Last 24 hours: Intake & Output 04/09/21 04/10/21 04/11/21 04/12/21 11:59 11:59 11:59 11:59 Intake Total 600 / 600 2973 / 2973 2116 1181 / 1181 Output Total 0 / 0 Balance 600 / 600 2973 / 2973 2116 / 2116 1181 / 1181 Weight 370 lb 370 lb 6.025 oz 370 lb 6.025 oz Microbiology Reports for the Last 24 Hours: Microbiology 04/09/21 21:14 Sputum - Expectorated Sputum Gram Stain - Final 04/09/21 21:14 Sputum - Expectorated Sputum Sputum Culture - Final Normal Respiratory Eve 04/09/21 13:53 Blood Blood Culture - Preliminary NO GROWTH AFTER 48 HOURS 04/09/21 13:53 Blood Blood Culture - Preliminary NO GROWTH AFTER 48 HOURS - Constitutional no acute distress Comments: Facial crackles on the right. - *Routine Respiratory Exam Present: crackles (Basal crackles on the right) - *Routine Cardiovascular Exam Present: RRR - *Routine Abdominal Exam Present: soft, normoactive bowel sounds. Absent: tenderness - *Routine Extremities Exam Absent: edema, calf tenderness - *Routine Neurological Exam Present: alert, oriented X3 Assessment and Plan (1) HTN (hypertension) Status: Acute Category: Medical Code(s): I10 - Essential (primary) hypertension (2) COVID-19 with pulmonary comorbidity Status: Acute Category: Medical Code(s): U07.1 - COVID-19; J98.4 - Other disorders of lung (3) Obesity Status: Acute Qualifiers: Obesity type: due to excess calories Obesity classification: adult class 3 (BMI >= 40) Serious obesity comorbidity presence: with serious comorbidity Body mass index: BMI 45.0-49.9 Qualified Code(s): E66.01 - Morbid (severe) obesity due to excess calories; Z68.42 - Body mass index [BMI] 45.0-49.9, adult Category: Medical Code(s): E66.9 - Obesity, unspecified (4) Pneumonia Status: Acute Category: Medical Code(s): J18.9 - Pneumonia, unspecified organism (5) Acute right-sided low back pain Status: Acute Category: Medical Code(s): M54.5 - Low back pain (6) Hypoxia Status: Acute Category: Medical Code(s): R09.02 - Hypoxemia - Assessment and plan all Dx Assessment and Plan for all problems:: We'll add scheduled DuoNeb treatments as well as budesonide twice daily. Otherwise continue current care <Miguel Almanza - Last Filed: 04/12/21 09:13> Internal Medicine - PN: Subj *Date: 04/12/21 *Time: 09:13 Exam Vital signs and Labs for Last 24 Hours: Temp Pulse Resp BP Pulse Ox 98.4 F 86 20 127/74 90 L 04/12/21 08:00 04/12/21 08:00 04/12/21 08:00 04/12/21 08:00 04/12/21 08:00 Laboratory Results - last 24 hr 04/12/21 07:36: Sodium 139, Potassium 4.1, Chloride 105, Carbon Dioxide 29, Anion Gap 9.1, BUN 10, Creatinine 0.60 L, Estimated Creat Clear 209, Estimated GFR 158, Est GFR ( Amer) 191, Glucose 119 H, Calcium 8.4 04/12/21 07:36: Total Bilirubin 0.7, Direct Bilirubin 0.4, Conjugated Bilirubin 0.0, Indirect Bilirubin 0.3, Unconjugated Bilirubin 0.3, AST 57, ALT 60, Alkaline Phosphatase 51, To
[2021-04-12 08:52] LABS: Bilirubin,Unconjugated 0.3 mg/dL (0.0-1.1)
[2021-04-12 08:53] LABS: Alanine Aminotransferase 60 U/L (12-78); Alkaline Phosphatase 51 U/L (38-126); Aspartate Amino Transferase 57 U/L (17-59); Bilirubin,Direct 0.4 mg/dl (0.0-0.4); Bilirubin,Indirect 0.3 mg/dL (0.0-0.9); Bilirubin,Total 0.7 mg/dl (0.2-1.3); Total Protein,Serum 5.2 g/dl (6.3-8.2)
--- NOTE | 2021-04-12 10:23 | HMH.ACPN ---
Internal Medicine - PN: Subj *Date: 04/12/21 *Time: 10:23 Exam Vital signs and Labs for Last 24 Hours: Temp Pulse Resp BP Pulse Ox 98.4 F 86 20 127/74 90 L 04/12/21 08:00 04/12/21 08:00 04/12/21 08:00 04/12/21 08:00 04/12/21 08:00 Laboratory Results - last 24 hr 04/12/21 07:36: Sodium 139, Potassium 4.1, Chloride 105, Carbon Dioxide 29, Anion Gap 9.1, BUN 10, Creatinine 0.60 L, Estimated Creat Clear 209, Estimated GFR 158, Est GFR ( Amer) 191, Glucose 119 H, Calcium 8.4 04/12/21 07:36: Total Bilirubin 0.7, Direct Bilirubin 0.4, Conjugated Bilirubin 0.0, Indirect Bilirubin 0.3, Unconjugated Bilirubin 0.3, AST 57, ALT 60, Alkaline Phosphatase 51, Total Protein 5.2 L, Albumin 3.0 L I & O for Last 24 hours: Intake & Output 04/09/21 04/10/21 04/11/21 04/12/21 23:59 23:59 23:59 23:59 Intake Total 1320 / 1320 2853 / 2973 211 / 2116 701 / 701 Output Total 0 / 0 Balance 1320 / 1320 2853 / 2973 2116 / 2116 701 / 701 Weight 168 kg 168 kg Microbiology Reports for the Last 24 Hours: Microbiology 04/09/21 21:14 Sputum - Expectorated Sputum Gram Stain - Final 04/09/21 21:14 Sputum - Expectorated Sputum Sputum Culture - Final Normal Respiratory Eve 04/09/21 13:53 Blood Blood Culture - Preliminary NO GROWTH AFTER 48 HOURS 04/09/21 13:53 Blood Blood Culture - Preliminary NO GROWTH AFTER 48 HOURS Assessment and Plan (1) HTN (hypertension) Status: Acute Category: Medical Code(s): I10 - Essential (primary) hypertension (2) COVID-19 with pulmonary comorbidity Status: Acute Category: Medical Code(s): U07.1 - COVID-19; J98.4 - Other disorders of lung (3) Obesity Status: Acute Qualifiers: Obesity type: due to excess calories Obesity classification: adult class 3 (BMI >= 40) Serious obesity comorbidity presence: with serious comorbidity Body mass index: BMI 45.0-49.9 Qualified Code(s): E66.01 - Morbid (severe) obesity due to excess calories; Z68.42 - Body mass index [BMI] 45.0-49.9, adult Category: Medical Code(s): E66.9 - Obesity, unspecified (4) Pneumonia Status: Acute Category: Medical Code(s): J18.9 - Pneumonia, unspecified organism (5) Acute right-sided low back pain Status: Acute Category: Medical Code(s): M54.5 - Low back pain (6) Hypoxia Status: Acute Category: Medical Code(s): R09.02 - Hypoxemia The patient's infection will respond to the chosen ABx?: Yes (EMPIRIC THERAPY) Is the patient receiving the right drug, dose, and route?: Yes Could a more targeted ABx be ordered?: No (CULTURES SHOW NRF)
--- NOTE | 2021-04-12 14:19 | PC.NURSE ---
pt lying prone at this time current o2 sat=92 on 3L
--- NOTE | 2021-04-12 18:03 | DIET.NUTRFU ---
PO intakes 50%, SOA but eating without difficulty at this time. Weight stable, bowels normal. Continuing to monitor/alter nutritional care plan as indicated.
--- NOTE | 2021-04-12 18:06 | PC.NURSE ---
Pt has rested most of the day. Pt is very anxious to go home and doesn't understand why his o2 saturations have not improved. Pt educated on POC, but still has questioned the purpose of his treatments. While pt was lying prone, o2 @ best was 93%. Coarse crackles heard at bilat bases. x1 BM this shift. No other acute changes or complaints, will continue to monitro.
--- NOTE | 2021-04-12 18:43 | PC.NURSE ---
Pt has approached me for a second time this shift regarding his POC. Pt was belligerent w/ this nurse stating that we are hiding information from him and staff hasnt been giving him his medication (lisinopril and allopurinol). This nurse explained to pt that he has received this medication w/ his morning medications. Pt verbalized understanding. Pt also expressed anger stating that he felt ok and didnt understand why oxygen was needed -of note, pt was standing in room, struggling to breathe while he was saying these things and was having a hard time catching his breath. In addition, pt has requested for MD to transfer him to [facility] where his mother is d/t saying he isnt getting the proper care here . I informed pt I would make a note of this concern for MD to read in the morning, pt verbalized understanding. Will continue to monitor.
[2021-04-13 03:59] VITALS: BP 106/68; PULSE 70; RESP 18; TEMP 36.8; O2SAT 93
[2021-04-13 05:00] VITALS: BMI 47.5
[2021-04-13 06:09] LABS: Chloride 106 mmol/L (98-107); Potassium 3.7 mmoL/L (3.5-5.1); Sodium 138 mmol/L (136-145)
[2021-04-13 06:10] LABS: Alanine Aminotransferase 93 U/L (12-78); Alkaline Phosphatase 55 U/L (38-126); Aspartate Amino Transferase 73 U/L (17-59); Bilirubin,Direct 0.5 mg/dl (0.0-0.4); Bilirubin,Indirect 0.2 mg/dL (0.0-0.9); Bilirubin,Total 0.7 mg/dl (0.2-1.3); Bilirubin,Unconjugated 0.2 mg/dL (0.0-1.1)
[2021-04-13 06:11] LABS: Albumin Level 2.8 g/dl (3.5-5.0); Total Protein,Serum 4.9 g/dl (6.3-8.2)
[2021-04-13 06:12] LABS: Anion Gap 7.7 mEq/L (5-15); Blood Urea Nitrogen 12 mg/dl (9-20); Calcium 8.2 mg/dl (8.4-10.2); Carbon Dioxide 28 mmol/L (22.0-30.0); Creatinine Clearance Estimated 209 mL/min (50-200); Estimated Glomerular Filt Rate 158 ml/min (>60); GFR (African American) 191 ML/MIN (>60); Glucose 110 mg/dl (74-100)
--- NOTE | 2021-04-13 06:21 | PC.NURSE ---
initial assessment. patient voiced several complaints and frustrations at the beginning of the shift. this rn attempted to educate patient on questions. voiced he didn't understand why he wasn't getting any better and why we wasn't giving him more antibiotics. explained to patient that antibiotics could only be given so much without causing bodily harm. ultimately the question was he wants someone to give him a time frame of when he will be better. explained to patient that wasn't possible due to each patient responding differently to treatment. questioned why he couldn't iv medications and o2 therapy at home. explained that with covid it is best to keep him quarantined due to high infection rates and the possibility of exposing others unnecessarily. patient sats have remained 90-94% throughout shift. sustaining 92-93% on 3l nc.
[2021-04-13 07:10] VITALS: PULSE 84; PULSE 94
[2021-04-13 08:00] VITALS: BP 143/87; PULSE 100; RESP 20; TEMP 36.6; O2SAT 85; O2SAT 94
--- NOTE | 2021-04-13 08:40 | HMH.ACPN2 ---
Internal Medicine - PN: Subj *Date: 04/13/21 *Time: 09:35 Interval history: Patient feels better today, no new complaints. Exam Vital signs and Labs for Last 24 Hours: Temp Pulse Resp BP Pulse Ox 98.3 F 84 18 106/68 L 93 L 04/13/21 03:59 04/13/21 07:10 04/13/21 03:59 04/13/21 03:59 04/13/21 03:59 Laboratory Results - last 24 hr 04/12/21 07:36: Total Bilirubin 0.7, Direct Bilirubin 0.4, Conjugated Bilirubin 0.0, Indirect Bilirubin 0.3, Unconjugated Bilirubin 0.3, AST 57, ALT 60, Alkaline Phosphatase 51, Total Protein 5.2 L, Albumin 3.0 L 04/13/21 05:25: Sodium 138, Potassium 3.7, Chloride 106, Carbon Dioxide 28, Anion Gap 7.7, BUN 12, Creatinine 0.60 L, Estimated Creat Clear 209, Estimated GFR 158, Est GFR ( Amer) 191, Glucose 110 H, Calcium 8.2 L 04/13/21 05:25: Total Bilirubin 0.7, Direct Bilirubin 0.5 H, Conjugated Bilirubin 0.0, Indirect Bilirubin 0.2, Unconjugated Bilirubin 0.2, AST 73 H D, ALT 93 H D, Alkaline Phosphatase 55, Total Protein 4.9 L, Albumin 2.8 L Vital Signs - 24 hr 04/12/21 10:54 04/12/21 11:56 04/12/21 14:02 Temperature 97.7 F Pulse Rate 77 77 Pulse Rate [Right Brachial] 89 Respiratory Rate 21 Blood Pressure [Right Arm] 139/78 02 Sat by Pulse Oximetry 96 92 L 95 04/12/21 15:59 04/12/21 18:44 04/12/21 20:00 Temperature 98.2 F 97.5 F L Pulse Rate 75 Pulse Rate [Right Brachial] 84 91 H Respiratory Rate 21 20 Blood Pressure [Right Arm] 120/61 135/76 02 Sat by Pulse Oximetry 91 L 91 L 93 L 04/12/21 23:52 04/13/21 03:59 04/13/21 07:10 Temperature 98.1 F 98.3 F Pulse Rate 84 Pulse Rate [Right Brachial] 70 Respiratory Rate 18 Blood Pressure [Right Arm] 106/68 L 02 Sat by Pulse Oximetry 94 L 93 L I & O for Last 24 hours: Intake & Output 04/10/21 04/11/21 04/12/21 04/13/21 23:59 23:59 23:59 23:59 Intake Total 2853 / 2973 2116 1061 / 2261 1200 / 1200 Output Total 0 / 0 Balance 2853 / 2973 2116 1061 / 2261 1200 / 1200 Weight 370 lb 6.025 oz 370 lb 6.025 oz 370 lb 6.025 oz Microbiology Reports for the Last 24 Hours: Microbiology 04/09/21 21:14 Sputum - Expectorated Sputum Gram Stain - Final 04/09/21 21:14 Sputum - Expectorated Sputum Sputum Culture - Final Normal Respiratory Eve - Constitutional no acute distress - *Routine HEENT Exam Head: Present: normocephalic Eye: Present: EOMI, PERRL ENT: Present: mucous membranes moist - *Routine Neck Exam Present: supple. Absent: lymphadenopathy - *Routine Respiratory Exam Present: CTA bilaterally - *Routine Cardiovascular Exam Present: RRR - *Routine Abdominal Exam Present: soft, normoactive bowel sounds. Absent: tenderness - *Routine Extremities Exam Absent: cyanosis, clubbing, edema - *Routine Skin Exam Present: warm. Absent: rash - *Routine Neurological Exam Present: alert, oriented X3 Assessment and Plan (1) HTN (hypertension) Status: Acute Category: Medical Code(s): I10 - Essential (primary) hypertension (2) COVID-19 with pulmonary comorbidity Status: Acute Category: Medical Code(s): U07.1 - COVID-19; J98.4 - Other disorders of lung (3) Obesity Status: Acute Qualifiers: Obesity type: due to excess calories Obesity classification: adult class 3 (BMI >= 40) Serious obesity comorbidity presence: with serious comorbidity Body mass index: BMI 45.0-49.9 Qualified Code(s): E66.01 - Morbid (severe) obesity due to excess calories; Z68.42 - Body mass index [BMI] 45.0-49.9, adult Category: Medical Code(s): E66.9 - Obesity, unspecified (4) Pneumonia Status: Acute Category: Medical Code(s): J18.9 - Pneumonia, unspecified organism (5) Acute right-sided low back pain Status: Acute Category: Medical Code(s): M54.5 - Low back pain (6) Hypoxia Status: Acute Category: Medical Code(s): R09.02 - Hypoxemia - Assessment and plan all Dx Assessment and Pl
[2021-04-13 09:00] VITALS: O2SAT 94
--- NOTE | 2021-04-13 09:27 | SW/DCPLANNER ---
PATIENT IS DISCHARGING HOME TODAY AND IS IN NEED OF 02 R/T COVID... THIS WAS SET UP WITH [facility] PER REQUEST... 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
[2021-04-13 10:14] VITALS: PULSE 89; PULSE 90; O2SAT 94
[2021-04-13 12:00] VITALS: BP 148/89; PULSE 92; RESP 16; TEMP 36.6; O2SAT 93
--- NOTE | 2021-04-15 10:22 | HMH.DCSUM ---
General - General Admission date:: 04/09/21 Discharge date: 04/13/21 HPI HPI: Patient is a 30 [address] old patient of Dr. Ekaterina Tinoco in [place], [place] who presented to [facility] ER complaining of progressively worse shortness of breath. Patient stated he started feeling bad about 1 week ago and was diagnosed with Covid-19 on 04/03/21. His initial symptom was fatigue but he then developed fever, cough, nasal congestion and shortness of breath. He was noted to have a history of HTN and obesity but no other medical problems. Patient was seen in the ER a few days prior to admission and was started on Zithromax, Prednisone and Zofran. He was scheduled for an antibody infusion but stated he felt much worse and thus returned to the ER. Hospital Course Hospital Course: Covid protocol was initiated on admission. He was also started on Zithromax and Rocephin IV. Oxygen was adjusted according to his O2 sats. He experienced on right lower back pain which was felt to be due to a previous injury and ibuprofen was initiated. He was started on scheduled duo nebs and budesonide treatments. Coughing did improve and by 04/13/2020 patient was feeling better with no new complaints. Oxygen was weaned to 3 L/min. He was discharged home on this date. He was to remain off work and follow-up with his primary care physician in 7 to 10 days. Home oxygen was arranged by care management. See DATA for specific test results. Objective Vital signs: Temp Pulse Resp BP Pulse Ox 97.8 F 92 H 16 148/89 H 93 L 04/13/21 12:00 04/13/21 12:00 04/13/21 12:00 04/13/21 12:00 04/13/21 12:00 Narrative: Exam Vital signs and Labs for Last 24 Hours: Temp Pulse Resp BP Pulse Ox 98.3 F 84 18 106/68 L 93 L 04/13/21 03:59 04/13/21 07:10 04/13/21 03:59 04/13/21 03:59 04/13/21 03:59 Laboratory Results - last 24 hr 04/12/21 07:36: Total Bilirubin 0.7, Direct Bilirubin 0.4, Conjugated Bilirubin 0.0, Indirect Bilirubin 0.3, Unconjugated Bilirubin 0.3, AST 57, ALT 60, Alkaline Phosphatase 51, Total Protein 5.2 L, Albumin 3.0 L 04/13/21 05:25: Sodium 138, Potassium 3.7, Chloride 106, Carbon Dioxide 28, Anion Gap 7.7, BUN 12, Creatinine 0.60 L, Estimated Creat Clear 209, Estimated GFR 158, Est GFR ( Amer) 191, Glucose 110 H, Calcium 8.2 L 04/13/21 05:25: Total Bilirubin 0.7, Direct Bilirubin 0.5 H, Conjugated Bilirubin 0.0, Indirect Bilirubin 0.2, Unconjugated Bilirubin 0.2, AST 73 H D, ALT 93 H D, Alkaline Phosphatase 55, Total Protein 4.9 L, Albumin 2.8 L Vital Signs - 24 hr 04/12/21 10:54 04/12/21 11:56 04/12/21 14:02 Temperature 97.7 F Pulse Rate 77 77 Pulse Rate [Right Brachial] 89 Respiratory Rate 21 Blood Pressure [Right Arm] 139/78 02 Sat by Pulse Oximetry 96 92 L 95 04/12/21 15:59 04/12/21 18:44 04/12/21 20:00 Temperature 98.2 F 97.5 F L Pulse Rate 75 Pulse Rate [Right Brachial] 84 91 H Respiratory Rate 21 20 Blood Pressure [Right Arm] 120/61 135/76 02 Sat by Pulse Oximetry 91 L 91 L 93 L 04/12/21 23:52 04/13/21 03:59 04/13/21 07:10 Temperature 98.1 F 98.3 F Pulse Rate 84 Pulse Rate [Right Brachial] 70 Respiratory Rate 18 Blood Pressure [Right Arm] 106/68 L 02 Sat by Pulse Oximetry 94 L 93 L I & O for Last 24 hours: Intake & Output 04/10/21 04/11/21 04/12/21 04/13/21 23:59 23:59 23:59 23:59 Intake Total 2853 / 2973 2116 106 2261 1200 / 1200 Output Total 0 / 0 Balance 2853 / 2973 2116 106 / 1 1200 / 1200 Weight 370 lb 6.025 oz 370 lb 6.025 oz 370 lb 6.025 oz Microbiology Reports for the Last 24 Hours: Microbiology 04/09/21 21:14 Sputum - Expectorated Sputum Gram Stain - Final 04/09/21 21:14 Sputum - Expectorated Sputum Sputum Culture - Final Normal Respiratory Eve - Constitutional no acute distress - *Routine HEENT Exam Head: Present: normocephalic Eye: Present: EOMI, PERRL ENT: Present
== END 2021-04-13 13:32 | disposition home or self-care (01) | DRG 177 ==
LOC: ER 20:32 → ICU 22:14
PROVIDERS: Emergency Medicine; Admitting Provider Family Medicine; Emergency Provider Emergency Medicine; PCP Family Medicine; Visit Provider Family Medicine
DX: U07.1 COVID-19 (principal); J12.82 Pneumonia due to coronavirus disease 2019; Z68.42 Body mass index [BMI] 45.0-49.9, adult; F17.210 Nicotine dependence, cigarettes, uncomplicated; E66.01 Morbid (severe) obesity due to excess calories; M54.5 Low back pain; I10 Essential (primary) hypertension
CPT/HCPCS: 36415; 71045; 71250; 80048; 80053; 80076; 82728; 83605; 83735; 83880; 84145; 84484; 85025; 86738; 87040; 87070; 87205; 93005; 94640; 94760; 94761; 96365; 96375; 99284; J0456; J2405

== ENCOUNTER 2021-05-16 03:59 | Emergency (ER) | payer BC, SELFPAY ==
[2021-05-16 04:02] VITALS: BP 159/106; PULSE 94; RESP 18; TEMP 36.8; O2SAT 94; BMI 49.8
--- NOTE | 2021-05-16 04:25 | CT_ITS ---
PROCEDURE INFORMATION: Exam: CT Abdomen And Pelvis Without Contrast Exam date and time: 05/16/2021 4:25 AM Age: 31 years old Clinical indication: Abdominal pain; Left lower quadrant (llq); Patient HX: Lt flank pain, dx with stone on RT one week ago TECHNIQUE: Imaging protocol: Computed tomography of the abdomen and pelvis without contrast. Radiation optimization: All CT scans at this facility use at least one of these dose optimization techniques: automated exposure control; mA and/or kV adjustment per patient size (includes targeted exams where dose is matched to clinical indication); or iterative reconstruction. COMPARISON: CT CHEST WO CON 04/10/2021 3:37 PM FINDINGS: Lungs: There is a calcified granuloma noted within the left lower lobe. There are additional calcified lymph nodes identified within the middle mediastinum and left hilus. No evidence of consolidation within either lower lobe. There is no evidence of mass. Liver: Mild hepatic enlargement. There is diminished attenuation present within the substance of the liver, compatible with diffuse hepatocellular disease including hepatic steatosis. No evidence of mass or intrahepatic biliary dilatation. Gallbladder and bile ducts: Normal. No calcified stones. No ductal dilation. Gallbladder wall thickness is normal. Pancreas: Normal. No ductal dilation. Spleen: Normal. No splenomegaly. Adrenal glands: Normal. No mass. Kidneys and ureters: Mild left hydronephrosis and left hydroureter. At the level of the left vesicoureteral junction there is a 7 mm calculus. There are scattered nonobstructing nephroliths within the right kidney. The largest is present within the interpolar region measuring 4 mm in size. No evidence of right hydronephrosis or hydroureter. Stomach and bowel: Unremarkable. No obstruction. No mucosal thickening. Small bowel mesentery is normal. Appendix: Unremarkable. Intraperitoneal space: Unremarkable. No free air. No significant fluid collection. Vasculature: Unremarkable. No abdominal aortic aneurysm. Lymph nodes: Unremarkable. No enlarged lymph nodes. Urinary bladder: Unremarkable as visualized. Reproductive: Unremarkable as visualized. Bones/joints: Unremarkable. No acute fracture. Soft tissues: Unremarkable. IMPRESSION: 1. There is a 7 mm obstructing calculus noted at the left vesicoureteral junction associated with mild left hydronephrosis and left hydroureter. Scattered nonobstructing nephroliths within the right kidney. 2. Hepatic enlargement with diminished attenuation present within the substance of the liver, compatible with diffuse hepatocellular disease including hepatic steatosis. 3. Evidence of old healed granulomatous disease at the left lung base and within the left hilus and middle mediastinum.
[2021-05-16 04:36] LABS: Basophils # 0.1 K/mm3 (0-0.2); Basophils % 1.4 % (0.1-2.0); Eosinophils # 0.1 K/mm3 (0.0-0.4); Eosinophils % 0.8 % (0.1-12.0); Hematocrit 44.1 % (42.0-52.0); Hemoglobin 14.9 g/dL (14.1-18.0); Lymphocytes % 33.5 % (10-50); Mean Corpuscular HGB Conc 33.8 g/dL (31.8-35.4); Mean Corpuscular Hemoglobin 29.8 pg (27.0-31.2); Mean Corpuscular Volume 88.2 fl (80-94); Mean Platelet Volume 8.1 fl (7.4-10.4); Monocytes # 0.8 K/mm3 (0.1-1.0); Monocytes % 9.3 % (1.7-9.3); Neutrophils # 4.9 K/mm3 (1.8-7.8); Platelet Count 326 K/mm3 (142-424); White Blood Count 8.9 K/mm3 (4.8-10.8)
--- NOTE | 2021-05-16 04:38 | PC.NURSE ---
Pt to CT
[2021-05-16 04:40] LABS: Microscopic, Urine URINE MICROSCOPIC (MICROSCOPIC)
[2021-05-16 04:41] LABS: Alanine Aminotransferase 48 U/L (12-78); Albumin Level 4.2 g/dl (3.5-5.0); Albumin/Globulin Ratio 1.7 (1.1-1.8); Alkaline Phosphatase 71 U/L (38-126); Anion Gap 14.4 mEq/L (5-15); Aspartate Amino Transferase 42 U/L (17-59); Bilirubin,Total 0.9 mg/dl (0.2-1.3); Blood Urea Nitrogen 17 mg/dl (9-20); Calcium 9.6 mg/dl (8.4-10.2); Carbon Dioxide 24 mmol/L (22.0-30.0); Chloride 101 mmol/L (98-107); Creatinine Clearance Estimated 138 mL/min (50-200); Estimated Glomerular Filt Rate 98 ml/min (>60); GFR (African American) 119 ML/MIN (>60); Globulin 2.5 g/dL (1.3-3.2); Glucose 115 mg/dl (74-100); Potassium 4.4 mmoL/L (3.5-5.1); Sodium 135 mmol/L (136-145); Total Protein,Serum 6.7 g/dl (6.3-8.2)
--- NOTE | 2021-05-16 04:45 | HMH.EDUROGM ---
ED Disposition Clinical Impression: Renal colic on left side Disposition: Home, Self-Care Condition on Discharge: Good Instructions: Kidney Stones -- Adult Additional Instructions: use meds and see pcp and urology Prescriptions: Tamsulosin HCl [Flomax 0.4mg capsule] 0.4 mg PO HS #10 cap Transmission Status: Pending to [id number] Rx Referrals: Ekaterina Tinoco [Primary Care Provider] - Steve Beaulieu MD [Staff Physician] - - Critical Care Critical Care Time: No Attestation: On 05/16/21, the high probability of a clinically significant, sudden or life threatening deterioration of the following system(s) required my full and direct attention, intervention and personal management. The time I documented below is in addition to time spent performing reported procedures but includes the following listed in this critical care notation. Medical Decision Making - Medical Records Medical records reviewed: Yes: I reviewed the patient's medical records. - Arian Inquiry Pt receiving controlled substance: No Vital Signs: 05/16/21 04:02 Temperature 98.2 F Temperature Source Oral Pulse Rate [Left] 94 H Respiratory Rate 18 Blood Pressure [Right Arm] 159/106 H Blood Pressure Mean [Right Arm] 123 Blood Pressure Source [Right Arm] Automatic Cuff 02 Sat by Pulse Oximetry 94 L Oxygen Delivery Method Room Air - Lab Data Lab results reviewed: Yes: I reviewed the patient's lab results. Lab Results 05/16/21 04:16: Urine Color Dark yellow, Urine Appearance Clear, Urine pH 6.0, Ur Specific [place] 1.025, Urine Protein Negative, Urine Glucose (UA) Negative, Urine Ketones Trace, Urine Blood 3+, Urine Nitrate Negative, Urine Bilirubin Negative, Urine Urobilinogen 0.2, Ur Leukocyte Esterase Trace, Urine RBC Tntc, Urine WBC Occasional, Urine Bacteria 1+ 05/16/21 04:16: WBC 8.9, RBC 5.00, Hgb 14.9, Hct 44.1, MCV 88.2, MCH 29.8, MCHC 33.8, RDW 15.0, Plt Count 326, MPV 8.1, Neut % (Auto) 55.0, Lymph % (Auto) 33.5, Sawyer % (Auto) 9.3, Eos % (Auto) 0.8, Baso % (Auto) 1.4, Neut # (Auto) 4.9, Lymph # (Auto) 3.0, Sawyer # (Auto) 0.8, Eos # (Auto) 0.1, Baso # (Auto) 0.1, ESR 13 05/16/21 04:16: Sodium 135 L, Potassium 4.4, Chloride 101, Carbon Dioxide 24, Anion Gap 14.4, BUN 17, Creatinine 0.90, Estimated Creat Clear 138, Estimated GFR 98, Est GFR ( Amer) 119, Glucose 115 H, Calcium 9.6, Total Bilirubin 0.9, AST 42, ALT 48, Alkaline Phosphatase 71, C-Reactive Protein 9.2 H, Total Protein 6.7 D, Albumin 4.2, Globulin 2.5, Albumin/Globulin Ratio 1.7, Procalcitonin 0.120 Result diagrams: 05/16/21 04:16 05/16/21 04:16 Orders (Tests/Meds): ED MEDICATIONS Generic Name Dose Route Start Last Admin Trade Name Freq PRN Reason Stop Dose Admin Sodium Chloride 1,000 mls @ 999 mls/hr 05/16/21 04:30 05/16/21 04:27 Sod Chlor 0.9% 1000ml Bag IV 05/16/21 05:30 999 mls/hr .Q1H1M ERNESTO Administration Tamsulosin HCl 0.4 mg 05/16/21 21:00 Tamsulosin 0.4mg Capsule PO 06/15/21 20:59 HS ERNESTO Discontinued Medications Generic Name Dose Route Start Last Admin Trade Name Freq PRN Reason Stop Dose Admin Hydromorphone HCl 1 mg 05/16/21 04:26 05/16/21 04:27 Hydromorphone 2mg/Ml Syringe IV 05/16/21 04:27 1 mg ONCE ONE Administration Ondansetron HCl 4 mg 05/16/21 04:26 05/16/21 04:27 Ondansetron 4mg/2ml Vial IV 05/16/21 04:27 4 mg ONCE ONE Administration - CT Data CT Scan: Abdomen, Pelvis Time Received: 05:[address] Reviewed: Yes: I have viewed the radiologist's interpretation Preliminary Findings: Abnormal (see report ) Medical Decision Narrative: has lt renal colic Male Urogenital HPI - General Chief complaint: Urogenital-Male Stated complaint: poss kidney stone,cannot urinate Time Seen by Provider: 05/16/21 04:25 Mode of Arrival: Ambulatory Source of Information: Patient, Medical Record Limitations: No Limitations Description of Symptoms (Recalled from ER Triage Doc
[2021-05-16 04:46] LABS: C-Reactive Protein 9.2 mg/L (0-4)
[2021-05-16 04:59] LABS: Appearance,Urine CLEAR (Clear); Blood, Urine 3+ (Negative); Glucose,Urine (UA) Negative (Negative); Ketones,Urine TRACE (Negative); Leukocyte Esterase,Urine TRACE (Negative); Nitrate,Urine Negative (Negative); Protein,Urine Negative (Negative); Specific Gravity, Urine 1.025 (1.005-1.030); Urobilinogen,Urine 0.2 EU/dl (0.2)
[2021-05-16 05:00] LABS: Bilirubin,Urine Negative (Negative); Color,Urine Dark Yellow (Yellow)
[2021-05-16 05:18] LABS: Bacteria,Urine 1+ /lpf; RBC,Urine TNTC #/hpf (0-3); WBC,Urine Occasional #/hpf (0-3)
[2021-05-16 05:19] LABS: Erythrocyte Sedimentation Rate 13 mm/hr (0-15)
[2021-05-16 06:06] VITALS: BP 147/82; PULSE 89; RESP 16; TEMP 36.9; O2SAT 98
== END 2021-05-16 06:14 | disposition home or self-care (01) ==
PROVIDERS: Emergency Provider Emergency Medicine; PCP Family Medicine
DX: N23 Unspecified renal colic (principal); Z87.442 Personal history of urinary calculi; I10 Essential (primary) hypertension; Z87.891 Personal history of nicotine dependence
CPT/HCPCS: 74176; 80053; 81001; 84145; 85025; 85651; 86140; 96365; 96375; 96376; 99283; J2405

== ENCOUNTER → 2021-05-18 15:06 | Outpatient (CLI) | payer BC, SELFPAY ==
--- NOTE | 2021-05-18 15:13 | XR_ITS ---
PROCEDURE: XR KUB CLINICAL INDICATION: kidney stone COMPARISON: CT CT ABDOMEN PELVIS WO CON from 05/16/2021 FINDINGS: There is a calcific density just to the left of midline in the lower pelvic region measuring approximately 8 mm consistent with a stone at the ureterovesical junction on the left. This appears similar when compared to prior CT scan of 05/16/2021. IMPRESSION: 8 mm stone at the left ureterovesical junction Dictated by: Aamir Ramos MD 05/18/2021 15:37 Aamir Ramos MD in OV 05/18/2021 15:37
== END ==
PROVIDERS: PCP Family Medicine; Visit Provider Urology
DX: N20.0 Calculus of kidney (principal)
CPT/HCPCS: 74018

== ENCOUNTER → 2021-05-19 12:48 | Outpatient (CLI) | payer BC, SELFPAY ==
[2021-10-16 17:40] LABS: Ca oxalate dihydrate 40; Calcium phosphate 10
== END ==
PROVIDERS: Visit Provider Urology
DX: N20.0 Calculus of kidney (principal)
CPT/HCPCS: 82370

== ENCOUNTER → 2021-07-05 14:31 | Outpatient (CLI) | payer BC, SELFPAY | PROVIDERS: Visit Provider Internal Medicine Gastroenterology | DX: Z01.818 Encounter for other preprocedural examination (principal); Z11.52 Encounter for screening for COVID-19 | CPT/HCPCS: C9803; U0003; U0005 ==

== ENCOUNTER → 2022-04-02 13:12 | Outpatient (CLI) | payer BC, SELFPAY ==
--- NOTE | 2022-04-02 13:16 | XR_ITS ---
FINAL REPORT CLINICAL HISTORY: HTN,FATIGUE,DYSPNEA COMPARISON: 12/07/2020 FINDINGS: 2 views of the chest were obtained . The heart is normal in size. The mediastinum is within normal limits. The lungs are clear. There is no pneumothorax. Osseous structures are unremarkable. IMPRESSION: No acute cardiopulmonary process. Reviewed, Interpreted and Dictated by Rambo Barajas III, MD Transcribed by Talia Rowe Authenticated and [facility]
== END ==
LOC: RAD 13:13
PROVIDERS: PCP Family Medicine; Visit Provider Family Medicine
DX: R06.00 Dyspnea, unspecified (principal); R53.83 Other fatigue; I10 Essential (primary) hypertension
CPT/HCPCS: 71046

== ENCOUNTER → 2022-05-03 07:46 | Outpatient (CLI) | payer BC, SELFPAY ==
[2022-05-07 01:06] LABS: Testosterone, Total, LC/MS 129.8 ng/dL (264.0-916.0); Testosterone,Free 5.9 pg/mL (8.7-25.1)
== END ==
PROVIDERS: PCP Family Medicine; Visit Provider Family Medicine
DX: R53.83 Other fatigue (principal)
CPT/HCPCS: 36415; 84402; 84403

== ENCOUNTER 2022-05-09 16:05 | Emergency (ER) | payer BC, SELFPAY ==
--- NOTE | 2022-05-09 16:20 | EXP.UTC ---
Discharge Plan Disposition Patient Disposition: Home, Self-Care Condition: Good Prescriptions Prescriptions: New mupirocin 2 % ointment 1 applic topical TID 7 Days Qty: 1 0RF amoxicillin-pot clavulanate 875-125 mg Tablet 1 tab PO Q12H Qty: 20 0RF ibuprofen [IBU] 800 mg tablet 800 mg PO Q8HP PRN (Reason: Moderate Pain) Qty: 30 0RF No Action allopurinol 100 MG tablet 100 mg PO DAILY lisinopril 10 MG tablet 10 mg PO DAILY fluticasone propionate 16 GM spray,suspension 1 spray IH DAILY ondansetron HCl 4 MG tablet 4 mg PO TID Qty: 15 0RF promethazine-DM 120 ML syrup 5 ml PO Q46H PRN (Reason: Cough) Qty: 240 0RF ascorbic acid (vitamin C) 500 MG tablet 500 mg PO QID Qty: 40 0RF zinc 50 MG tablet 50 mg PO BID Qty: 20 0RF cholecalciferol (vitamin D3) 25 MCG tablet 1,000 unit PO DAILY Qty: 10 0RF tamsulosin 0.4 MG capsule 0.4 mg PO HS Qty: 10 0RF Referrals Follow up/Referrals: Ekaterina Tinoco [Primary Care Provider] - See instructions Bobbi Martinez DPM [Staff Physician] - See instructions Activity Restrictions/Add. Instructions Additional Instructions/Restrictions: Rest the extremity, apply ice for 15 minutes as tolerated three or four times per day, Wear the zakiya wrap for compression, Elevate the extremity as tolerated while you are resting. Take ibuprofen for pain. I sent in a prescription to your pharmacy. Follow up with Dr. Martinez (podiatry). I put in a referral but you need to call her office and schedule an appointment. Follow up with your regular doctor. GO TO THE ER FOR ANY WORSENING SYMPTOMS Clinical Impressions Clinical Impression: Ingrowing nail, right great toe Stand Alone Forms Stand Alone Forms: Work/School Release Instructions Patient Instructions: DI for Ingrown Toenail Removal, DI for Ingrown Toenail Discharge ED Provider: Osmany Wheat [facility] General Stated complaint: INGROWN TOE NAIL Time Seen by Provider: 05/09/22 16:19 History of Present Illness Provider Complaint: He is here with complaints of right great toe nail being ingrown. He request for the nail to be removed and pulled out of the nail fold. He has tried to do this at home but he has been unsuccessful due to pain. Related Data Home Medications Medication Instructions Recorded Confirmed allopurinol 100 mg tablet 100 mg PO DAILY gout 04/06/21 05/18/21 fluticasone propionate 50 1 spray IH DAILY allergies 04/06/21 05/18/21 mcg/actuation nasal spray,suspension lisinopril 10 mg tablet 10 mg PO DAILY Hypertension 04/06/21 05/18/21 Previous Rx's Medication Instructions Recorded ondansetron HCl 4 mg tablet 4 mg PO TID nausea #15 tabs 04/07/21 ascorbic acid (vitamin C) 500 mg 500 mg PO QID #40 tabs 04/13/21 tablet cholecalciferol (vitamin D3) 25 1,000 unit PO DAILY #10 tabs 04/13/21 mcg (1,000 unit) tablet promethazine-DM 6.25 mg-15 mg/5 mL 5 ml PO Q46H PRN Cough #240 mL 04/13/21 oral syrup zinc 50 mg tablet 50 mg PO BID #20 tabs 04/13/21 tamsulosin 0.4 mg capsule 0.4 mg PO HS #10 caps 05/16/21 amoxicillin 875 mg-potassium 1 tab PO Q12H #20 tabs 05/09/22 clavulanate 125 mg tablet ibuprofen 800 mg tablet (IBU) 800 mg PO Q8HP PRN Moderate Pain 05/09/22 #30 tabs mupirocin 2 % topical ointment 1 applic topical TID 7 days #1 g 05/09/22 Allergies Allergy/AdvReac Type Severity Reaction Status Date / Time No Known Allergies Allergy Verified 05/09/22 16:28 [facility] Social History Smoking Status: Former smoker alcohol intake: current substance use type: denies use current occupational status: employed Travel in the last 8 weeks: None household members: spouse housing: house caffeine: Yes ROS Obtained: Yes All systems reviewed & no additional complaints except as documented Constitutional Constitutional: Reports system reviewed and no additional complaints
[2022-05-09 16:23] VITALS: BP 150/103; PULSE 120; RESP 18; TEMP 37.1; O2SAT 96; BMI 53.4
[2022-05-09 18:35] VITALS: BP 150/103; PULSE 120; RESP 18; TEMP 37.1
== END 2022-05-09 18:47 | disposition home or self-care (01) ==
PROVIDERS: Emergency Provider Nurse Practitioner Family; PCP Family Medicine
DX: L60.0 Ingrowing nail (principal)
CPT/HCPCS: 11750; 96372; 99213; G0463; J0696

== ENCOUNTER → 2022-06-15 07:29 | Outpatient (CLI) | payer BC, SELFPAY ==
[2022-06-20 03:46] LABS: Testosterone, Total, LC/MS 105.5 ng/dL (264.0-916.0); Testosterone,Free 4.6 pg/mL (8.7-25.1)
== END ==
PROVIDERS: PCP Family Medicine; Visit Provider Family Medicine
DX: R79.89 Other specified abnormal findings of blood chemistry (principal)
CPT/HCPCS: 36415; 84402; 84403

== ENCOUNTER 2022-09-03 15:28 | Emergency (ER) | payer BC, SELFPAY ==
--- NOTE | 2022-09-03 15:57 | EXP.UTC ---
Discharge Plan Disposition Patient Disposition: Home, Self-Care Condition: Good Prescriptions Prescriptions: New benzonatate [benzonatate] 100 mg capsule 100 mg PO TIDP PRN (Reason: Cough) Qty: 30 0RF promethazine-DM 6.25-15 mg/5 mL Syrup 5 ml PO Q6H PRN (Reason: Cough) Qty: 240 0RF methylprednisolone 4 mg Tablets,Dose Pack 4 mg PO DIRECTED Qty: 21 0RF amoxicillin-pot clavulanate 875-125 mg Tablet 1 tab PO Q12H Qty: 20 0RF No Action allopurinol 100 MG tablet 100 mg PO DAILY losartan 50 mg tablet 50 mg PO DAILY Label Comments: TAKE 1 TABLET BY MOUTH ONCE DAILY metformin 500 mg tablet 500 mg PO DAILY Label Comments: TAKE 1 TABLET BY MOUTH TWICE DAILY WITH MEALS metoprolol succinate 25 mg tablet extended release 24 hr 25 mg PO DAILY testosterone cypionate 200 mg/mL oil 200 mg IM DIRECTED Label Comments: INJECT 1ML (200MG) INTO THE MUSCLE EVERY 14 DAYS Referrals Follow up/Referrals: Ekaterina Tinoco [Primary Care Provider] - See instructions Activity Restrictions/Add. Instructions Additional Instructions/Restrictions: Drink plenty of fluids. Take tylenol or ibuprofen for pain or fever. Take the medications as directed. Follow up with your regular doctor. GO TO THE ER FOR ANY WORSENING SYMPTOMS Clinical Impressions Clinical Impression: Acute bronchitis Stand Alone Forms Stand Alone Forms: Work/School Release Instructions Patient Instructions: Acute Bronchitis, DI for Acute Bronchitis Discharge ED Provider: Osmany Wheat [facility] [place] HPI General Stated complaint: ear ache and sore throat, cough Time Seen by Provider: 09/03/22 15:57 History of Present Illness Provider Complaint: He states that for the past 2 weeks he has had sinus and chest congestion. He ran a fever the first couple of days when it started, but since then he has just had lots of congestion. When he lies down at night he states that his cough keeps him awake. He denies any history of asthma and copd. Related Data Home Medications Medication Instructions Recorded Confirmed allopurinol 100 mg tablet 100 mg PO DAILY gout 04/06/21 09/03/22 losartan 50 mg tablet 50 mg PO DAILY . 09/03/22 09/03/22 metformin 500 mg tablet 500 mg PO DAILY Diabetes 09/03/22 09/03/22 metoprolol succinate 25 mg 25 mg PO DAILY . 09/03/22 09/03/22 tablet,extended release 24 hr testosterone cypionate 200 mg/mL 200 mg IM DIRECTED Supplement 09/03/22 09/03/22 intramuscular oil Previous Rx's Medication Instructions Recorded amoxicillin 875 mg-potassium 1 tab PO Q12H #20 tabs 09/03/22 clavulanate 125 mg tablet benzonatate 100 mg capsule 100 mg PO TIDP PRN Cough #30 caps 09/03/22 methylprednisolone 4 mg tablets in 4 mg PO DIRECTED #21 tabs 09/03/22 a dose pack promethazine-DM 6.25 mg-15 mg/5 mL 5 ml PO Q6H PRN Cough #240 mL 09/03/22 oral syrup Allergies Allergy/AdvReac Type Severity Reaction Status Date / Time No Known Allergies Allergy Verified 09/03/22 16:32 [facility] Disclaimer: The information contained in this section may have been updated after the patient was seen, as this information can be updated by other users. Social History Smoking Status: Former smoker alcohol intake: current substance use type: denies use current occupational status: employed Travel in the last 8 weeks: None household members: spouse housing: house caffeine: Yes ROS Obtained: Yes All systems reviewed & no additional complaints except as documented Constitutional Constitutional: Denies chills and Denies fever(s) Eyes Eyes: Denies eye discharge ENT Ears, Nose, Mouth, and Throat: Denies dizziness, Denies otalgia and Denies sore throat Cardiovascular Cardiovascular: Denies chest pain Respiratory Respiratory: Denies shortness of breath, Reports chest congestion, Reports cough, Denies stridor an
[2022-09-03 16:00] VITALS: BP 170/90; PULSE 88; RESP 19; TEMP 36.5; O2SAT 96; BMI 55.2
[2022-09-03 16:13] LABS: UTC Strep Screen (Rapid) Negative (Negative)
[2022-09-03 16:14] LABS: UTC Influenza A Antigen Negative (Negative); UTC Influenza B Antigen Negative (Negative)
[2022-09-03 17:19] VITALS: BP 170/90; PULSE 88; RESP 19; TEMP 36.5; O2SAT 96
== END 2022-09-03 17:19 | disposition home or self-care (01) ==
PROVIDERS: Emergency Provider Nurse Practitioner Family; PCP Family Medicine
DX: J20.9 Acute bronchitis, unspecified (principal)
CPT/HCPCS: 87804; 87880; 99212; 99213; G0463

== ENCOUNTER → 2022-12-21 07:50 | Outpatient (CLI) | payer BC, SELFPAY ==
[2022-12-28 18:55] LABS: Testosterone, Total, LC/MS 416.5 ng/dL (264.0-916.0); Testosterone,Free 11.7 pg/mL (8.7-25.1)
== END ==
PROVIDERS: PCP Nurse Practitioner Family; Visit Provider Nurse Practitioner Family
DX: E29.1 Testicular hypofunction (principal)
CPT/HCPCS: 36415; 84402; 84403

== ENCOUNTER 2023-02-21 12:48 | Emergency (ER) | payer BC, SELFPAY ==
[2023-02-21 12:50] VITALS: BP 153/95; PULSE 89; RESP 20; TEMP 36.5; O2SAT 98; BMI 52.0
[2023-02-21 13:03] VITALS: BP 153/95; PULSE 89; RESP 20; TEMP 36.5; O2SAT 98
--- NOTE | 2023-02-21 13:04 | EXP.UTC ---
Discharge Plan Disposition Patient Disposition: Home, Self-Care Condition: Good Prescriptions Prescriptions: New erythromycin 5 mg/gram (0.5 %) ointment 1 applic ophthalmic (eye) Q4H 7 Days Qty: 7 0RF Rx Instructions: apply 0.5cm ribbon to area on eye as directed No Action allopurinol 100 MG tablet 100 mg PO DAILY losartan 50 mg tablet 50 mg PO DAILY Patient Comments: TAKE 1 TABLET BY MOUTH ONCE DAILY metformin 500 mg tablet 500 mg PO DAILY Patient Comments: TAKE 1 TABLET BY MOUTH TWICE DAILY WITH MEALS metoprolol succinate 25 mg tablet extended release 24 hr 25 mg PO DAILY testosterone cypionate 200 mg/mL oil 200 mg IM DIRECTED Patient Comments: INJECT 1ML (200MG) INTO THE MUSCLE EVERY 14 DAYS benzonatate [benzonatate] 100 mg capsule 100 mg PO TIDP PRN (Reason: Cough) Qty: 30 0RF promethazine-DM 6.25-15 mg/5 mL Syrup 5 ml PO Q6H PRN (Reason: Cough) Qty: 240 0RF methylprednisolone 4 mg Tablets,Dose Pack 4 mg PO DIRECTED Qty: 21 0RF amoxicillin-pot clavulanate 875-125 mg Tablet 1 tab PO Q12H Qty: 20 0RF Referrals Follow up/Referrals: Laura Mascorro APRN [Primary Care Provider] - See instructions Activity Restrictions/Add. Instructions Additional Instructions/Restrictions: Clean eye with warm water and baby shampoo several times daily Warm compresses to area 3-4 times daily Use topical ointment as prescribed Follow up with your Eye Doctor if no improvement or any worsening of symptoms/swelling Clinical Impressions Clinical Impression: Hordeolum externum (stye) Qualifiers: Laterality: right Eyelid: lower Qualified Code(s): H00.012 - Hordeolum externum right lower eyelid Instructions Patient Instructions: DI for Hordeolum, Hordeolum, Erythromycin Ophthalmic Discharge ED Provider: Linda Ervin [facility] [place] HPI General Stated complaint: AO@home 02/18 RT eye redness w/inflammation Mode of Arrival: Ambulatory Source of Information: Patient Limitations: No Limitations Time Seen by Provider: 02/21/23 13:04 Description of Symptoms (Recalled from Triage Doc. by RN): PATIENT C/O SWELLING AND REDNESS TO RIGHT LOWER EYE LID X 2 DAYS HEENT Symptoms (Recalled from RN notes): Yes Resp Symptoms (Recalled from RN notes): No Skin Symptoms (Recalled from RN notes): No MS Symptoms (Recalled from RN notes): No Functional Status (Recalled from RN notes): WNL History of Present Illness Provider Complaint: Patient states that he has a hx of styes and usually has to get ointment for it States that he has been doing warm compresses and it hasnt helped any so today when it was still bothering him he came in to get it checked Related Data Home Medications Medication Instructions Recorded Confirmed allopurinol 100 mg tablet 100 mg PO DAILY gout 04/06/21 09/03/22 losartan 50 mg tablet 50 mg PO DAILY . 09/03/22 09/03/22 metformin 500 mg tablet 500 mg PO DAILY Diabetes 09/03/22 09/03/22 metoprolol succinate 25 mg 25 mg PO DAILY . 09/03/22 09/03/22 tablet,extended release 24 hr testosterone cypionate 200 mg/mL 200 mg IM DIRECTED Supplement 09/03/22 09/03/22 intramuscular oil Previous Rx's Medication Instructions Recorded amoxicillin 875 mg-potassium 1 tab PO Q12H #20 tabs 09/03/22 clavulanate 125 mg tablet benzonatate 100 mg capsule 100 mg PO TIDP PRN Cough #30 caps 09/03/22 methylprednisolone 4 mg tablets in 4 mg PO DIRECTED #21 tabs 09/03/22 a dose pack promethazine-DM 6.25 mg-15 mg/5 mL 5 ml PO Q6H PRN Cough #240 mL 09/03/22 oral syrup erythromycin 5 mg/gram (0.5 %) eye 1 applic ophthalmic (eye) Q4H 7 02/21/23 ointment days #7 grams Allergies Allergy/AdvReac Type Severity Reaction Status Date / Time No Known Allergies Allergy Verified 09/03/22 16:32 Worker's Comp Is this a Worker's Comp case?: No [facility] Disclaimer: The information contained in this section may have been updated after the patient was
== END 2023-02-21 13:20 | disposition home or self-care (01) ==
PROVIDERS: Emergency Provider Nurse Practitioner; PCP Nurse Practitioner Family
DX: H00.012 Hordeolum externum right lower eyelid (principal); I10 Essential (primary) hypertension; Z87.891 Personal history of nicotine dependence
CPT/HCPCS: 99212; 99214; G0463

== ENCOUNTER → 2023-06-05 14:35 | Outpatient (CLI) | payer BC, SELFPAY ==
[2023-06-05 14:38] LABS: Microscopic, Urine URINE MICROSCOPIC (MICROSCOPIC)
[2023-06-05 15:16] LABS: Basophils % 0.5 % (0.1-2.0); Eosinophils # 0.1 K/mm3 (0.0-0.4); Eosinophils % 1.2 % (0.1-12.0); Hematocrit 48.8 % (42.0-52.0); Hemoglobin 16.7 g/dL (14.1-18.0); Lymphocytes # 2.3 K/mm3 (0.7-4.5); Lymphocytes % 25.5 % (10-50); Mean Corpuscular HGB Conc 34.2 g/dL (31.8-35.4); Mean Corpuscular Hemoglobin 29.3 pg (27.0-31.2); Mean Corpuscular Volume 85.7 fl (80-94); Mean Platelet Volume 7.2 fl (7.4-10.4); Monocytes # 0.6 K/mm3 (0.1-1.0); Monocytes % 6.1 % (1.7-9.3); Neutrophils # 6.1 K/mm3 (1.8-7.8); Neutrophils % 66.7 % (37.0-80.0); Platelet Count 225 K/mm3 (142-424); White Blood Count 9.1 K/mm3 (4.8-10.8)
[2023-06-05 15:57] LABS: Anion Gap 13.2 mEq/L (5-15); Blood Urea Nitrogen 16 mg/dl (9-20); Calcium 9.9 mg/dl (8.4-10.2); Carbon Dioxide 25 mmol/L (22.0-30.0); Chloride 105 mmol/L (98-107); Estimated Glomerular Filt Rate 130 ml/min (>60); GFR (African American) 157 ML/MIN (>60); Glucose 88 mg/dl (74-100); Potassium 4.2 mmoL/L (3.5-5.1); Sodium 139 mmol/L (136-145)
[2023-06-05 17:04] LABS: Appearance,Urine CLEAR (Clear); Bilirubin,Urine Negative (Negative); Blood, Urine 1+ (Negative); Color,Urine YELLOW (Yellow); Glucose,Urine (UA) Negative (Negative); Ketones,Urine Negative (Negative); Leukocyte Esterase,Urine Negative (Negative); Nitrate,Urine Negative (Negative); Protein,Urine Negative (Negative); Specific Gravity, Urine >= 1.030 (1.005-1.030); Urobilinogen,Urine 0.2 EU/dl (0.2)
[2023-06-05 17:38] LABS: RBC,Urine Occasional #/hpf (0-3); WBC,Urine Occasional #/hpf (0-3)
== END ==
PROVIDERS: PCP Nurse Practitioner Family; Visit Provider Surgery
DX: K42.9 Umbilical hernia without obstruction or gangrene (principal)
CPT/HCPCS: 36415; 80048; 81001; 85025

== ENCOUNTER 2023-06-20 08:05 | Day surgery (SDC) | payer BC, SELFPAY ==
[2023-06-20] VITALS (10 sets, daily range): BP systolic 95–149; BP diastolic 56–102; PULSE 73–96; RESP 16–18; TEMP 36.2–36.8; O2SAT 92–96; BMI 49.6
--- NOTE | 2023-06-20 08:45 | EXP.ANES.CKL ---
[facility] Disclaimer: The information contained in this section may have been updated after the patient was seen, as this information can be updated by other users. Medical History Hypertension Kidney stone Surgical History History of back surgery History of colonoscopy Family History Other No significant family history Social History Smoking Status: Current every day smoker tobacco type: cigarettes packs per day: 1 alcohol intake: never substance use type: denies use current occupational status: employed Travel in the last 8 weeks: None household members: spouse housing: house caffeine: Yes [facility] Anesthesia Checklist Patient Identification Patient Identification: Arm Band and Verbal (Name & ) Structural Data Admitted From: Home Planned Operative Procedure/s: Umbilical hernia repair Consent for Planned Operative Procedure(s) Verified: Yes NPO Status Verified Time NPO: 00:00 Additional verifications Anesthesia Reactions: No Hx Blood Transfusions: No Airway Assessment Mallampati Score:: Class IV C-Spine Mobility Assessed: Yes TMJ Mobility Assessed: Yes Dentition: Good Dentition Neurological Assessment Level of Consciousness: Awake Hx Seizures: No Numbness or tingling in extremities: No Anesthesia Plan Anesthesia Risk discussed: Yes Anesthesia Plan: Verified ASA Class: III Anesthesia Type: General
--- NOTE | 2023-06-20 10:55 | EXP.OP.NOTE ---
Date of procedure: 06/20/23 Pre-op Diagnosis:: Umbilical hernia Post-op Diagnosis:: Same Procedure performed:: Open umbilical hernia repair with 6.4 cm Ventralex mesh Surgeon:: Harshil Shabazz MD Anesthesia: RONEL Estimated blood loss (mL): 10 Operative findings:: Fingertip defect repaired with 6.4 cm Ventralex mesh Operative note:: After informed consent was obtained the patient was taken to the operating room and placed in the supine position. General anesthesia was induced and his abdomen was prepped and draped in a sterile fashion. After infiltration with local anesthetic an infraumbilical incision was made. The deep subcutaneous tissue was dissected as the umbilical stump was elevated/transected. A fingertip defect was encountered. Omentum noted with no definitive incarceration. A 6.4 cm Ventralex mesh was secured in position with interrupted 0 Ethibond. A primary repair with 0 Ethibond over the mesh was then completed. The wound was thoroughly irrigated. The umbilical stump was reapproximated with 2-0 Vicryl. Skin was then closed with interrupted 4-0 Monocryl in a mattress fashion to facilitate hemostasis. Dressings were applied and the patient was transferred to recovery in stable condition. Condition: stable Disposition: PACU Specimens:: None Complications:: No immediate
--- NOTE | 2023-06-20 11:05 | P.PNANES_ITS ---
[facility] Anesthesia Record Part I Anesthesia Record I Intake, IV Amount: 1,300 Hydration: Adequate Estimated blood loss (mL): 10 Urine output (mL): 0 Blood Products used (#): none Blood Pressure: 95/66 SaO2: 93 Pulse Rate: 80 Airway Patency: Patent Respiratory Rate: 16 Temperature: 97.8 F Patient is:: Drowsy and Stable Stable to PACU at:: 11:00
--- NOTE | 2023-06-20 12:55 | EXP.ANES.II ---
[facility] Anesthesia Record Part II Anesthesia Record Part II Discharge Time: 11:30 Destination: Surgical Day Care (OP Surgery) PACU nurse assessment reviewed?: Yes Patient Condition:: Good Anesthesia Complications:: None Swallowing reflex intact?: Yes Airway Patency: Patent Cyanosis?: No Blood Pressure: 111/61 SaO2: 92 Respiratory Rate: 16 Pulse Rate: 77 Temperature: 97.2 F Mental Status: Alert & Oriented Pain level:: 5 Nausea and/or vomitting:: None Intake, IV Amount: 0 Hydration: Adequate
== END 2023-06-20 12:00 | disposition home or self-care (01) ==
PROVIDERS: PCP Nurse Practitioner Family; Visit Provider Surgery
PROC: (CPT 49593; principal; 2023-06-20 09:30)
DX: K42.9 Umbilical hernia without obstruction or gangrene (principal)
CPT/HCPCS: 49593; 96374; C1781; J2405

== ENCOUNTER → 2023-07-03 07:08 | Outpatient (CLI) | payer BC, SELFPAY ==
[2023-07-03 08:17] LABS: Albumin Level 4.3 g/dl (3.5-5.0); Chol/HDL Ratio 5.1 (1-3.5); Cholesterol 164 mg/dl (140-200); HDL Cholesterol 32 mg/dl (40-60); Triglycerides 236 mg/dl (30-150); VLDL Cholesterol 47 mg/dL (0-40)
[2023-07-03 08:50] LABS: Thyroid Stimulating Hormone 1.79 uIU/mL (0.465-4.68)
[2023-07-08 01:08] LABS: Free Testosterone (Direct) 5.6 pg/mL (8.7-25.1); Testosterone, Total, LC/MS 165.5 ng/dL (264.0-916.0)
== END ==
PROVIDERS: PCP Nurse Practitioner Family; Visit Provider Nurse Practitioner Family
DX: R79.89 Other specified abnormal findings of blood chemistry (principal); I10 Essential (primary) hypertension; Z72.0 Tobacco use
CPT/HCPCS: 36415; 80061; 82040; 84443

== ENCOUNTER 2024-07-27 10:54 | Emergency (ER) | payer BC, SELFPAY ==
[2024-07-27] VITALS (9 sets, daily range): BP systolic 127–161; BP diastolic 80–98; PULSE 94–131; RESP 16–18; TEMP 36.7; O2SAT 97–99; BMI 45.9
--- NOTE | 2024-07-27 11:23 | CT_ITS ---
FINAL REPORT CLINICAL HISTORY: left flank pain, sig stone hx COMPARISON: None FINDINGS: Axial CT images of the abdomen and pelvis were obtained without intravenous contrast. Coronal and sagittal reformatted images were also obtained.This study was performed with techniques to keep radiation doses as low as reasonably achievable (ALARA). Individualized dose reduction techniques using automated exposure control or adjustment of mA and/or kV according to the patient's size were employed. Abdomen: Mild scarring is noted in the lung bases. There are bilateral nonobstructing renal stones, more numerous on the right. The largest stone on the right measures 9 mm. It has a mean attenuation value of 944 Hounsfield units. There is no hydronephrosis. The liver, spleen and pancreas have an unremarkable, unenhanced appearance. No mass or adenopathy is seen. No inflammatory process is identified. Pelvis: Images of the pelvis reveal no evidence of ureteral dilation or ureteral stone. The appendix is normal. No mass or abnormal fluid collection is identified. IMPRESSION: Bilateral nonobstructing renal stones, more numerous on the right. No mass or inflammatory process. Reviewed, Interpreted and Dictated by Rambo Barajas III, MD Transcribed by Aby Bonilla Authenticated and . [facility]
--- NOTE | 2024-07-27 11:25 | HMH.EDGENADL ---
Discharge Plan Disposition Patient Disposition: Home, Self-Care Condition: Good Prescriptions Prescriptions: New tamsulosin [Flomax] 0.4 mg capsule 0.4 mg PO DAILY Qty: 7 0RF ondansetron 4 mg tablet,disintegrating 4 mg PO Q6H 4 Days Qty: 16 0RF No Action allopurinol 100 MG tablet 100 mg PO DAILY losartan 50 mg tablet 50 mg PO DAILY Patient Comments: TAKE 1 TABLET BY MOUTH ONCE DAILY testosterone cypionate 200 mg/mL oil 200 mg IM DIRECTED Patient Comments: INJECT 1ML (200MG) INTO THE MUSCLE EVERY 14 DAYS Referrals Follow up/Referrals: Laura Mascorro APRN [Primary Care Provider] - See instructions Torey Arechiga MD [Staff Physician] - See instructions (recurrent nephrolithiasis) Activity Restrictions/Add. Instructions Additional Instructions/Restrictions: A referral has been placed to Dr. Arechiga with urology. For now, alternate Tylenol and ibuprofen every 3 hours or take both medications together every 6 hours for pain. Use the Zofran every 6 hours as needed for nausea/vomiting. Ensure adequate fluid intake with water, sugar-free, non-carbonated fluids. Your stones are still in the kidneys at this time and not causing any blockage in the ureter or kidneys. The stones may leave the kidney and begin to cause increased pain. If this is the case, you may need to come back for increased pain control. Please return to ED if your symptoms worsen, change in location, change in severity, new symptoms develop or if you become concerned for your health. Clinical Impressions Clinical Impression: Bilateral nephrolithiasis Instructions Patient Instructions: DI for Flank Pain Print Language Print Language: Kenyan Discharge ED Provider: Lori Alford General Adult HPI General Chief complaint: PAIN Stated complaint: back pain Time Seen by Provider: 07/27/24 11:16 Mode of Arrival: Ambulatory Source of Information: Patient Limitations: No Limitations Description of Symptoms (Recalled from ER Triage Doc. by RN): c/o right flank pain with trouble urinating that started Saturday, went away over the past few days and urination was back to normal, pain started again while at work this morning with trouble urinating. Pt reports a hx of kidney stones History of Present Illness HPI narrative: Gus Dash is a 34 y/o male presenting with flank pain. Patient states he has a significant history of renal stones and has required stenting in the past. Patient states he developed right flank pain on Saturday and has been attempting to manage his symptoms at home with cranberry juice, Azo, ibuprofen. Patient's symptoms had been moderately controlled until today when he returned to work and while having to move around more, he developed increased flank pain that is wrapping around towards his right groin. Patient states he has not had fevers, chills, nausea, vomiting. He has not had difficulty with urine initiation or frequency. Patient has had no bowel changes. Related Data Home Medications ?Medication ?Instructions ?Recorded ?Confirmed allopurinol 100 mg tablet 100 mg PO DAILY 04/06/21 06/28/23 losartan 50 mg tablet 50 mg PO DAILY . 09/03/22 06/28/23 testosterone cypionate 200 mg/mL 200 mg IM DIRECTED Supplement 09/03/22 06/28/23 intramuscular oil Previous Rx's ?Medication ?Instructions ?Recorded ondansetron 4 mg disintegrating 4 mg PO Q6H 4 days #16 tabs 07/27/24 tablet tamsulosin 0.4 mg capsule (Flomax) 0.4 mg PO DAILY #7 caps 07/27/24 Allergies Allergy/AdvReac Type Severity Reaction Status Date / Time No Known Allergies Allergy Verified 06/28/23 09:34 [facility] Disclaimer: The information contained in this section may have been updated after the patient was seen, as this information can be updated by other users. Medical History Hypertension Kidney stone Surgical History (Updated 06/28/23 @ 09:35 by ROOPA Petersen) History of umbilical hernia repair History of back surgery History of colonoscopy Family History Other No significant family history Social History Smoking Status: Current every day smoker tobacco type: cigarettes packs per day: 1 alcohol intake: never substance use type: denies use current occupational status: employed household members: spouse housing: house caffeine: Yes Other Medical History Have you received the Flu Vaccine for this season: No Have you received the Pneumonia Vaccine: No ROS Obtained: Yes All systems reviewed & no additional complaints except as documented Physical Exam General General appearance: alert and in no apparent distress Respiratory Respiratory exam: Present normal lung sounds bilaterally; Absent respiratory distress Cardiovascular Cardiovascular exam: Present regular rate and normal rhythm; Absent JVD Abdominal Exam Abdominal exam: Present soft and normal bowel sounds; Absent distention, tenderness or guarding Abdominal tenderness: Present RLQ (groin) Back Exam Back exam: Present normal inspection and CVA tenderness (R); Absent tenderness Neurological Exam Neurological exam: Present alert and oriented X3 Medical Decision Making Medical Records Screening: Per USPSTF and CDC recommendations, given the prevalence of disease in our region, it is our hospital?s policy to screen for HIV and viral Hepatitis for all patients aged 18 and over and those with ongoing risk factors. Arian Inquiry Pt receiving controlled substance: No Vital Signs: 07/27/24 10:55 07/27/24 11:01 07/27/24 11:30 Temperature 98.0 F Temperature Source Oral Pulse Rate 126 H 131 H Pulse Rate [Left Radial] 129 H Respiratory Rate 18 Blood Pressure 127/98 H Blood Pressure [Right Arm] 161/93 H Blood Pressure Mean [Right Arm] 115 02 Sat by Pulse Oximetry 98 99 99 Oxygen Delivery Method Room Air 07/27/24 13:00 07/27/24 13:01 07/27/24 13:15 Temperature Temperature Source Pulse Rate 106 H 110 H 105 H Pulse Rate [Left Radial] Respiratory Rate Blood Pressure 139/89 139/89 Blood Pressure [Right Arm] Blood Pressure Mean [Right Arm] 02 Sat by Pulse Oximetry 98 99 97 Oxygen Delivery Method Room Air 07/27/24 13:30 07/27/24 13:31 Temperature Temperature Source Pulse Rate 94 H 101 H Pulse Rate [Left Radial] Respiratory Rate Blood Pressure 142/80 H Blood Pressure [Right Arm] Blood Pressure Mean [Right Arm] 02 Sat by Pulse Oximetry 98 98 Oxygen Delivery Method Lab Data Lab Results 07/27/24 11:33: WBC 10.1, RBC 6.18, Hgb 18.4 H, Hct 53.9 H, MCV 87.1, MCH 29.8, MCHC 34.2, RDW 14.0, Plt Count 256, MPV 7.6, Neut % (Auto) 71.9, Lymph % (Auto) 21.2, [place] % (Auto) 5.3, Eos % (Auto) 0.6, Baso % (Auto) 1.0, Neut # (Auto) 7.3, Lymph # (Auto) 2.1, [place] # (Auto) 0.5, Eos # (Auto) 0.1, Baso # (Auto) 0.1, Urine Color Yellow, Urine Appearance Clear, Urine pH 7.5, Ur Specific [place] 1.015, Urine Protein Negative, Urine Glucose (UA) Negative, Urine Ketones Negative, Urine Blood 1+ A, Urine Nitrate Negative, Urine Bilirubin Negative, Urine Urobilinogen 0.2, Ur Leukocyte Esterase Trace, Urine RBC 5-10, Urine WBC 5-10, Ur Squamous Epith Cells Occasional, Urine Bacteria Trace 07/27/24 11:51: Sodium 139, Potassium 4.0, Chloride 105, Carbon Dioxide 26, Anion Gap 12.0, BUN 12, Creatinine 0.80, Estimated Creat Clear 151, Estimated GFR 111, Est GFR ( Amer) 134, Glucose 97, Calcium 10.0, Total Bilirubin 0.7, AST 39, ALT 44, Alkaline Phosphatase 59, Total Protein 7.6, Albumin 5.0, Globulin 2.6, Albumin/Globulin Ratio 1.9 H 07/27/24 11:33 07/27/24 11:51 Orders (Tests/Meds): ED MEDICATIONS Generic Name Dose Route Start Last Admin Trade Name Freq PRN Reason Stop Dose Admin Hydromorphone HCl 1 mg 07/27/24 13:46 Hydromorphone 2mg/Ml Syringe IM 07/27/24 13:47 ONCE ONE Discontinued Medications Generic Name Dose Route Start Last Admin Trade Name Freq PRN Reason Stop Dose Admin Hydromorphone HCl 0.5 mg 07/27/24 11:32 07/27/24 11:39 Hydromorphone 2mg/Ml Syringe IV 07/27/24 11:33 Not Given ONCE ONE Hydromorphone HCl 1 mg 07/27/24 11:37 07/27/24 11:49 Hydromorphone 2mg/Ml Syringe IM 07/27/24 11:38 1 mg ONCE ONE Administration Ketorolac Tromethamine 15 mg 07/27/24 11:24 07/27/24 11:33 Ketorolac 30mg/Ml Vial IV 07/27/24 11:25 Not Given ONCE ONE ORDERS Category Date Time Status CT abdomen pelvis wo con Stat Cat Scan 07/27/24 11:23 Completed CBC w/Auto Diff [Complete Blood Count Auto Diff] Stat Lab 07/27/24 11:33 Completed CMP [Comprehensive Metabolic Panel] Stat Lab 07/27/24 11:51 Completed HIV (1&2) Antibody Rapid Stat Lab 07/27/24 11:51 Received Hep C Ab with Reflex to RNA Stat Lab 07/27/24 11:51 Received Urinalysis and Microscopic Stat Lab 07/27/24 11:33 Completed Medical Decision Narrative: In summary, patient is a 34-year-old male with a significant past medical history of multiple renal stones presenting with right flank pain. Differential diagnosis includes but is not limited to, nephrolithiasis, hydronephrosis, septic stone, constipation, MSK, testicular torsion, among others. Based on patient's history and physical exam, he will be evaluated with CBC, CMP, CT without IV contrast. Symptoms managed with Dilaudid. Patient's medical history significant for morbid obesity, hypertension, frequent nephrolithiasis. Lab evaluation reviewed by me and significant for no leukocytosis, thrombocytopenia, anemia. Urinalysis with 1+ blood, trace leukocyte esterase, 5-10 WBC, trace bacteria. CT scan personally reviewed by me and demonstrates multiple bilateral renal stones, no ureteral lithiasis, hydronephrosis, hydroureter or bladder wall thickening/stranding. Based on these findings as well as patient's laboratory evaluation, there is no evidence for obstructive stone or septic stone. Patient given the results of his evaluation and advised that he will continue symptomatic treatment at home. Patient given home management instructions with regards to hydration, pain control and urinary straining. Due to the fact that the patient's stones are still in the kidneys and nonobstructive, patient may have symptoms if/when the stones move from the kidney into the ureter. Patient advised to follow-up with urology for continued management of his recurrent stones. A new referral was placed to urology since patient has not been seen since 2020. Patient agreement with this plan. Patient discharged in stable condition. Lori Alford MD PGY-3, Emergency Medicine Critical Care Critical Care Time Critical Care Time: No
--- NOTE | 2024-07-27 11:32 | PC.NURSE ---
pt refusing toradol at this time, states this does not help his pain
[2024-07-27 11:39] LABS: Microscopic, Urine URINE MICROSCOPIC (MICROSCOPIC)
[2024-07-27 11:42] LABS: Appearance,Urine CLEAR (Clear); Bilirubin,Urine Negative (Negative); Blood, Urine 1+ (Negative); Color,Urine YELLOW (Yellow); Glucose,Urine (UA) Negative (Negative); Ketones,Urine Negative (Negative); Leukocyte Esterase,Urine TRACE (Negative); Nitrate,Urine Negative (Negative); PH,Urine 7.5 (5.0-8.5); Protein,Urine Negative (Negative); Specific Gravity, Urine 1.015 (1.005-1.030); Urobilinogen,Urine 0.2 EU/dl (0.2)
[2024-07-27 11:46] LABS: Basophils # 0.1 K/mm3 (0-0.2); Eosinophils # 0.1 K/mm3 (0.0-0.4); Eosinophils % 0.6 % (0.1-12.0); Hematocrit 53.9 % (42.0-52.0); Lymphocytes # 2.1 K/mm3 (0.7-4.5); Lymphocytes % 21.2 % (10-50); Mean Corpuscular HGB Conc 34.2 g/dL (31.8-35.4); Mean Corpuscular Hemoglobin 29.8 pg (27.0-31.2); Mean Corpuscular Volume 87.1 fl (80-94); Mean Platelet Volume 7.6 fl (7.4-10.4); Monocytes # 0.5 K/mm3 (0.1-1.0); Monocytes % 5.3 % (1.7-9.3); Neutrophils # 7.3 K/mm3 (1.8-7.8); Neutrophils % 71.9 % (37.0-80.0); Platelet Count 256 K/mm3 (142-424); Red Blood Count 6.18 M/mm3 (4.60-6.20); White Blood Count 10.1 K/mm3 (4.8-10.8)
[2024-07-27] MEDS: HYDROMORPHONE 2MG/ML SYRINGE 1 MG IM ×2 (11:49→13:53)
[2024-07-27 11:51] LABS: Hemoglobin 18.4 g/dL (14.1-18.0)
--- NOTE | 2024-07-27 11:58 | PC.NURSE ---
pt given ice chips, okayed by
[2024-07-27 11:59] LABS: Bacteria,Urine Trace /lpf; Squamous Epithelial Cell,Urine Occasional #/hpf (0-5)
[2024-07-27 12:03] LABS: Chloride 105 mmol/L (98-107)
[2024-07-27 12:04] LABS: Sodium 139 mmol/L (136-145)
[2024-07-27 12:06] LABS: Blood Urea Nitrogen 12 mg/dl (9-20); Creatinine Clearance Estimated 151 mL/min (50-200); Estimated Glomerular Filt Rate 111 ml/min (>60); GFR (African American) 134 ML/MIN (>60)
[2024-07-27 12:07] LABS: Alanine Aminotransferase 44 U/L (12-78); Albumin/Globulin Ratio 1.9 (1.1-1.8); Alkaline Phosphatase 59 U/L (38-126); Aspartate Amino Transferase 39 U/L (17-59); Bilirubin,Total 0.7 mg/dl (0.2-1.3); Carbon Dioxide 26 mmol/L (22.0-30.0); Globulin 2.6 g/dL (1.3-3.2); Glucose 97 mg/dl (74-100); Total Protein,Serum 7.6 g/dl (6.3-8.2)
[2024-07-27 14:51] LABS: HIV (1&2) Antibody Rapid NONREACTIVE (NONREACTIVE)
[2024-07-28 05:11] LABS: HCV Ab Non Reactive (Non Reactive)
== END 2024-07-27 14:02 | disposition home or self-care (01) ==
PROVIDERS: Emergency Provider Student in an Organized Health Care Education/Training Program; PCP Nurse Practitioner Family
DX: N20.0 Calculus of kidney (principal); R10.32 Left lower quadrant pain; R33.9 Retention of urine, unspecified
CPT/HCPCS: 36415; 74176; 80053; 81001; 85025; 86803; 87389; 96372; 99284; J1171

== ENCOUNTER 2024-08-03 10:28 | Outpatient (CLI) | payer BC, SELFPAY | END 2024-08-03 23:59 | disposition home or self-care (01) | LOC: LAB 10:30 | PROVIDERS: Visit Provider Urology | DX: Z02.9 Encounter for administrative examinations, unspecified (principal) ==

== ENCOUNTER 2024-08-20 08:30 | Emergency (ER) | payer BC, SELFPAY ==
[2024-08-20 08:50] VITALS: BP 116/74; PULSE 106; RESP 20; TEMP 36.8; O2SAT 96; BMI 44.4
--- NOTE | 2024-08-20 08:56 | EXP.UTC ---
Discharge Plan Disposition Patient Disposition: Home, Self-Care Condition: Good Prescriptions Prescriptions: New amoxicillin-pot clavulanate 875-125 mg Tablet 1 tab PO Q12H Qty: 20 0RF guaifenesin [Mucinex] 1,200 mg tablet extended release 12hr 1,200 mg PO Q12H PRN (Reason: congestion) Qty: 30 0RF azithromycin [Zithromax Z-Edgar] 250 mg tablet See Rx Instructions .ROUTE .COMPLEX 5 Days Qty: 6 0RF Rx Instructions: For 250 mg dose pack: take 500 mg today (day 1), then 250 mg for 4 days (days 2-5) prednisone 20 mg tablet 20 mg PO BID 5 Days Qty: 10 0RF albuterol sulfate 90 mcg/actuation HFA aerosol inhaler 2 puff inhalation Q6H PRN (Reason: shortness of breath or wheezing) Qty: 8.5 0RF No Action losartan 50 mg tablet 50 mg PO DAILY Patient Comments: TAKE 1 TABLET BY MOUTH ONCE DAILY chlorthalidone 25 mg tablet 25 mg PO DAILY Patient Comments: TAKE 1 TABLET BY MOUTH ONCE DAILY allopurinol 100 mg tablet 100 mg PO DAILY Patient Comments: TAKE 1 TABLET BY MOUTH ONCE DAILY Zepbound 10 mg/0.5 mL pen injector 10 mg SQ DAILY Patient Comments: INJECT 10 MG (0.5 ML) SUBCUTANEOUSLY ONCE A WEEK Referrals Follow up/Referrals: Ekaterina Tinoco [Primary Care Provider] - See instructions Activity Restrictions/Add. Instructions Additional Instructions/Restrictions: Start antibiotic today. Be sure to complete entire prescription even if feeling better Monitor temp. Tylenol every 4 hours as needed and / or ibuprofen every 6 hours as needed ( As long as your primary care physician has told you that it ok to take both. For fever/aches/pains ER if no less than 101 despite Tylenol or Motrin Humidifier/vaporizer or hot steamy shower Inhaler every 4-6 hours as needed like we discussed. If unsure how to use it, ask pharmacist to demonstrate how. Should help open airways and improve cough, wheezing, and shortness of breath Mucinex for your coughBe sure to drink lots of water. Follow up with your Family Doctor in the next week or so for re-evaluation *Start steroid today. Helps with inflammation therefore, cough and wheezing. Follow directions on the package. Reviewed side effects. Patient reports taking them before. Follow up IMMEDIATELY for new or worsening of symptoms OR no noticeable improvement over the next 48-72 hours. 911 immediately for any life threatening symptoms such as chest pain or difficulty breathing Clinical Impressions Clinical Impression: Pneumonia Qualifiers: Pneumonia type: due to unspecified organism Laterality: right Lung location: unspecified part of lung Qualified Code(s): J18.9 - Pneumonia, unspecified organism Instructions Patient Instructions: Pneumonia--Adult, Amoxicillin and Clavulanic Acid, Azithromycin Print Language Print Language: Mexican Discharge ED Provider: Linda Ervin [facility] HPI General Stated complaint: chest congestion weak body aches Time Seen by Provider: 08/20/24 08:56 History of Present Illness Provider Complaint: Patient states that for the last couple of days he started feeling bad States that he has been having chest congestion, cough, body aches, chills, headache and over all not feeling well States today he wasnt feeling any better so he came in to get checked States at times he is coughing up thick mucous and sore in chest area with coughing States also wants to get his urine checked worried he may have a UTI Related Data Home Medications ?Medication ?Instructions ?Recorded ?Confirmed allopurinol 100 mg tablet 100 mg PO DAILY 08/20/24 08/20/24 chlorthalidone 25 mg tablet 25 mg PO DAILY 08/20/24 08/20/24 losartan 50 mg tablet 50 mg PO DAILY 08/20/24 08/20/24 tirzepatide (weight loss) 10 10 mg SQ DAILY 08/20/24 08/20/24 mg/0.5 mL subcutaneous pen injector (Zepbound) Previous Rx's ?Medication ?Instructions ?Recorded albuterol sulfate 90 mcg/actuation 2 puff inhalation Q6H PRN 08/20/24 aerosol inhaler shortness of breath or wheezing #8.5 grams amoxicillin 875 mg-potassium 1 tab PO Q12H #20 tabs 08/20/24 clavulanate 125 mg tablet azithromycin 250 mg tablet See Rx Instructions PO .COMPLEX 5 08/20/24 (Zithromax Z-Edgar) days #6 tabs guaifenesin 1,200 mg tablet, 1,200 mg PO Q12H PRN congestion 08/20/24 extended release 12 hr (Mucinex) #30 tabs prednisone 20 mg tablet 20 mg PO BID 5 days #10 tabs 08/20/24 Allergies Allergy/AdvReac Type Severity Reaction Status Date / Time No Known Allergies Allergy Verified 08/03/24 09:22 [facility] Disclaimer: The information contained in this section may have been updated after the patient was seen, as this information can be updated by other users. Medical History Hypertension Kidney stone Surgical History History of umbilical hernia repair History of back surgery History of colonoscopy Family History Other No significant family history Social History Smoking Status: Current every day smoker tobacco type: cigarettes packs per day: 1 alcohol intake: never substance use type: denies use current occupational status: employed Travel in the last 8 weeks: None household members: spouse housing: house caffeine: Yes Have you lived/traveled outside [place] in past 30 days?: No Contact w/someone who lives/traveled outside US past 30 days?: No Exposure to someone with infectious disease in past 14 days?: No Do you have a fever (greater than 100.4 F or 38 C)?: No Have you tested positive for COVID-19: No Exposed to someone with COVID-19 in past 14 days?: No Do you have a sore throat?: Yes Do you have a cough?: Yes Do you have any weakness?: Yes Do you have any diarrhea?: No Are you experiencing any unusual bleeding?: No Do you have any muscle aches/pain?: No Do you have any abdominal pain?: No Are you experiencing loss of taste or smell?: No ROS Obtained: Yes All systems reviewed & no additional complaints except as documented and Yes Systems reviewed as appropriate & no additional complaints except as documented Constitutional Constitutional: Reports system reviewed and no additional complaints, except as documented, Reports as per HPI, Reports body ache, Reports chills, Reports fever(s) and Reports headache(s) ENT Ears, Nose, Mouth, and Throat: Reports system reviewed and no additional complaints, except as documented, Reports as per HPI, Reports headache(s), Reports nasal congestion, Reports nasal discharge and Reports sore throat Cardiovascular Cardiovascular: Reports system reviewed and no additional complaints, except as documented and Reports as per HPI Respiratory Respiratory: Reports system reviewed and no additional complaints, except as documented, Reports as per HPI, Reports shortness of breath (at times after coughing), Reports chest congestion, Reports cough and Reports pain with cough Gastrointestinal Gastrointestingal: Reports system reviewed and no additional complaints, except as documented and as per HPI Neurologic Neurologic: Reports headache(s) Physical Exam General General appearance: alert and in no apparent distress ENT ENT exam: Present mucous membranes moist Expanded ENT Exam Nose exam: Absent sinus tenderness Throat exam: Present normal inspection Respiratory Respiratory exam: Present normal lung sounds bilaterally; Absent respiratory distress or wheezes Cardiovascular Cardiovascular exam: Present regular rate, normal rhythm and normal heart sounds Neurological Exam Neurological exam: Present alert, oriented X3 and normal gait Medical Decision Making Medical Records Screening: Per USPSTF and CDC recommendations, given the prevalence of disease in our region, it is our hospital?s policy to screen for HIV and viral Hepatitis for all patients aged 18 and over and those with ongoing risk factors. Arian Inquiry Pt receiving controlled substance: No Arian was queried for this patient: No Lab Data Lab results reviewed: Yes I reviewed the patient's lab results. Radiology Data #1: Image(s): Chest Image Reviewed: Yes I have reviewed radiologist's interpretation Minimal patchy opacity in the right infrahilar region may be related to small infiltrate, Continued follow up is recommended
--- NOTE | 2024-08-20 08:57 | XR_ITS ---
FINAL REPORT TECHNIQUE: Chest PA & Lateral CLINICAL HISTORY: cough/congestion x 2 days, smoker x 10+ yrs COMPARISON: 04/02/2022 FINDINGS: 2 views of the chest were performed. The heart size is at the upper limits of normal. The mediastinum is within normal limits. There is minimal patchy airspace opacity in the right infrahilar region which may be related to a small infiltrate. There are no pleural effusions. There is no pneumothorax. The bony thorax appears intact. IMPRESSION: Minimal patchy opacity in the right infrahilar region may be related to a small infiltrate. Continued follow-up is recommended. Reviewed, Interpreted and Dictated by Sammy Dickson MD Transcribed by Shiela Tamez Authenticated and [facility]
[2024-08-20 09:13] LABS: UTC Influenza A Antigen Negative (Negative)
[2024-08-20 09:14] LABS: UTC Influenza B Antigen Negative (Negative)
[2024-08-20 09:32] LABS: Apearance,Urine Clear (Clear); Bilirubin,Urine Negative (Negative); Blood, Urine 1+ (Negative); Color,Urine Dark Yellow (Yellow); Glucose,Urine (UA) Negative (Negative); Ketones,Urine Negative (Negative); Protein,Urine Trace (Negative); Specific Gravity, Urine 1.015 (1.005-1.030)
[2024-08-20 09:33] LABS: UTC Leukocyte Esterase,Urine Negative (Negative); UTC Nitrate,Urine Negative (Negative); Urobilinogen,Urine 2 EU/dl (0.2)
[2024-08-20 10:40] VITALS: BP 116/74; PULSE 106; RESP 21; TEMP 36.8; O2SAT 96
== END 2024-08-20 10:42 | disposition home or self-care (01) ==
PROVIDERS: Emergency Provider Nurse Practitioner; PCP Family Medicine
DX: J18.9 Pneumonia, unspecified organism (principal); R50.9 Fever, unspecified; R05.9 Cough, unspecified; M79.10 Myalgia, unspecified site; R09.89 Other specified symptoms and signs involving the circulatory and respiratory systems; R51.9 Headache, unspecified; R53.1 Weakness; J02.9 Acute pharyngitis, unspecified
CPT/HCPCS: 71046; 81003; 87804; 99212; G0381

== ENCOUNTER 2024-12-09 07:46 | Outpatient (CLI) | payer BC, SELFPAY ==
--- OUTSIDE RECORDS SUMMARY | 2024-12-09 07:49 | XMS_ITS | Clinical Summary ---
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 Name Role Phone HERIBERTO SAN Unavailable [phone] Marcio ALFRED, Stanislav Pittman Unavailable [phone] Reason for Visit and Chief Complaint [facility] Problems Includes: Problems addressed during this encounter and other active Problems All Visits Onset Date Resolved Date Provider Condition S tatus Soft Tissue Hip Pain Radiating 05/12/2019 Stanislav Buckley MD Active Last Documented On 9 2:35PM ; [facility] Plan of Treatment No Plan of Treatment Recorded Assessments Includes: Assessments from this encounter No Assessments Recorded Medical Equipment - Implanted Devices Includes: Current Devices No Medical Equipment Recorded Medications Includes: Medications discussed during this encounter and other current Medications Current Medications (continue as prescribed) Allopurinol 100 MG Oral Tablet 06/22/2019 Provider: Diagnosis: Last Documented On 9 2:53PM By Sammy Navarro [facility] Lisinopril 10 MG Oral Tablet 05/30/2019 Provider: KENNEDY LYN Diagnosis: Last Documented On 9 2:53PM By Sammy Hurt ; [facility] Medications Administered Includes: Administered Medications from this encounter No Administered Medications Recorded Results Includes: Results discussed during this encounter No Results Recorded For Specified Dates History of Present Illness Includes: History of Present Illness from this encounter No History of Present Illness Recorded Social History No Social History Recorded - Smoking Status Unknown Medical History Includes: Medical History addressed during this encounter No Medical History Recorded Family History Includes: Family History addressed during this encounter No Family History Recorded Review of Systems Includes: Review of Systems from this encounter No Review of Systems Recorded Mental Status Includes: Mental Status from this encounter No Mental Status Recorded Functional Status Includes: Functional Status from this encounter No Functional Status Recorded Physical Exam Includes: Physical Exam from this encounter No Physical Exam Recorded Allergies Includes: Active Allergies No Known Allergies Encounters Encounter Provider Location Date Check-In Time Check-Out Time Diagnosis [facility] Lauri Salazar MD Surgery 0 8:02AM 11:59PM Insurance Includes: Active Insurance Policies Plan Name Member ID Group # Subscriber Relationship Effect burton Dates 1 - [facility] [id number] MATTHEW RODRIGUEZ Self 08/26/2019 - Unknown Clinical Notes Includes: Clinical Notes from this encounter No Clinical Notes Recorded
--- OUTSIDE RECORDS SUMMARY | 2024-12-09 07:49 | XMS_ITS | Clinical Summary ---
Author Organization [facility] , [facility] Address [address] [place] [address] Phone Care Team Providers Care Email Designer Name Role Phone HERIBERTO SAN Unavailable [phone] Marcio ALFRED, Stanislav Pittman Unavailable [phone] Reason for Visit and Chief Complaint The Chief Complaint is: Back Pain Problems Includes: Problems addressed during this encounter and other active Problems All Visits Onset Date Resolved Date Provider Condition S tatus Soft Tissue Hip Pain Radiating 05/12/2019 Stanislav Buckley MD Active Last Documented On 9 2:35PM ; [facility], [facility] Plan of Treatment Patient was seen by myself Jimy Sheikh PA-C. Patient will follow up 4 weeks continue to walk mary out today. There is right hip pain will hopefully come just resolve over time and over the next 4 weeks - Last Documented On 11/25/2019 2:06PM ; [facility], [facility] Instructions to patient Instructions for patient See PCP for BP and weight loss Last Documented On 0 11:32AM ; [facility], [facility] Assessments Includes: Assessments from this encounter Findings L5-S1 microdiscectomy November 06, 2019 - Last Documented On 11/25/2019 2:06PM ; [facility], [facility] Instructions Includes: Instructions from this encounter Instructions to patient Instructions for patient See PCP for BP and weight loss Last Documented On 0 11:32AM ; [facility], [facility] Medical Equipment - Implanted Devices Includes: Current Devices No Medical Equipment Recorded Medications Includes: Medications discussed during this encounter and other current Medications Current Medications (continue as prescribed) Allopurinol 100 MG Oral Tablet 06/22/2019 Provider: Diagnosis: Last Documented On 9 2:53PM By Sammy Hurt ; [facility], [facility] Lisinopril 10 MG Oral Tablet 05/30/2019 Provider: KENNEDY LYN Diagnosis: Last Documented On 9 2:53PM By Sammy Hurt ; [facility], [facility] Past Medications on file Percocet 5-325 MG OR TABS 11/04/2019 - 11/19/2019 Prov ider: Lauri Salazar MD Diagnosis: prn pain Last Documented On 0 2:39PM By Vicki Johnson ; [facility], [facility] Protonix 40 MG Oral Tablet Delayed Release 07/14/2019 - 08/13/2019 Provider: Stanislav Buckley MD Diagnosis: once a day Last Documented On 9 12:06PM By Sammy Hurt ; [facility], [facility] Ibuprofen 600 MG Oral Tablet 07/14/2019 - 08/13/2019 P jjder: Stanislav Buckley MD Diagnosis: Take 1 tablet every 8 hrs prn pain Last Documented On 9 12:08PM By Sammy Hurt ; [facility], [facility] Medrol 4 MG Oral Tablet Ther apy Pack 06/24/2019 - 07/24/2019 Provider: Stanislav Buckley MD Diagnosis: take as directed by medrol dose pack Last Documented On 9 3:45PM By Sammy Hurt ; [facility], [facility] Medications Administered Includes: Administered Medications from this encounter No Administered Medications Recorded Vital Signs Includes: Vital Signs from this encounter Vital Name 11/20/2019 11:25A Blood Pressure Sitting (mmHg) 153/96 Pulse Rate-Sitting (bpm) 76 Height (in) 74 Weight (lb) 370 Body Mass Index (kg/m2) 47.5 Body Surface Area (m2) 2.8 Note: trm Last Documented: On 11/20/2019 11:32A M ; [facility], [facility] Results Includes: Results discussed during this encounter No Results Recorded For Specified Dates History of Present Illness Includes: History of Present Illness from this encounter DEMETRIUS RODRIGUEZ is a 29 year old male. - Allergy list reviewed - Problem list reviewed - Medication list reviewed with patient - Medication reconciliation performed Patient's here today for follow-up of his L5-S1 microdiscectomy he still has some pain in the right hip mainly after sitting for a while or going to stand sit to stand is the thing that bothers him the most the pain in the right foot is gone at this point in time. Procedure date November 06, 2019 Social History Description Last Updated No caffeine use 01/07/2023 Last Documented On 0 11:23AM ; [facility], [facility] No recent change in diet 09/03/2019 Last Documented On 0 11:23AM ; [facility] No tobacco use 09/03/2019 Last Documented On 0 11:23AM ; [facility] Not a current smoker quit 2 years ago Last Documented On 0 11:23AM ; [facility] Not exercising regularly 09/03/2019 Last Documented On 0 11:23AM ; [facility] Not using alcohol 09/03/2019 Last Documented On 0 11:23AM ; [facility] Not using drugs 09/03/2019 Last Documented On 0 11:23AM ; [facility] Smoking status : Former smoker quit 2 ye ars ago 09/03/2019 Last Documented On 0 11:23AM ; [facility], [facility] Procedures and Surgical History Includes: Procedures from this encounter Procedures Code Diagnosis Performing Provider Service L ocation Service Date Clinical summary provided to patient Last Documented On 0 11:23AM ; [facility], [facility] Medical History Includes: Medical History addressed during this encounter Description Last Updated kidney stent and GI scope 09/03/2019 Last Documented On 0 11:23AM ; [facility] Intermittent hypertension 09/03/2019 Last Documented On 0 11:23AM ; [facility], [facility] Family History Includes: Family History addressed during this encounter Description Last Updated Family history of diabetes mellitus 04/2020 Last Documented On 0 11:23AM ; [facility], [facility] Review of Systems Includes: Review of Systems from this encounter Systemic: Not feeling tired (fatigue), no recent weight loss, and no recent weight gain. No edema. Head: No headache and no sinus pain. Eyes: No vision problems. Vision problems wears glasses/contacts. Otolaryngeal: No hearing loss and no tinnitus. No nasal symptoms. Cardiovascular: No chest pain or discomfort and no palpitations. Pulmonary: No daytime asthma symptoms, no cough, and no wheezing. Gastrointestinal: No heartburn and no abdominal pain. Endocrine: No hot flashes and no muscle weakness. Hematologic: No easy bleeding and no tendency for easy bruising. Musculoskeletal: No lower back pain. No soft tissue swelling and no localized joint pain. Neurological: No dizziness, no convulsions, and no numbness. Psychological: No anxiety, no emotional lability, no depression, and no insomnia. Not crying for no reason. Skin: No dry skin, no rash, and no ulcers. Allergic and Immunologic: No complaint of seasonal allergic reaction. Mental Status Includes: Mental Status from this encounter Description No anxiety Functional Status Includes: Functional Status from this encounter No Functional Status Recorded Physical Exam Includes: Physical Exam from this encounter Allergies Includes: Active Allergies No Known Allergies Encounters Encounter Provider Location Date Check-In Time Check- Out Time Diagnosis Post Op Lauri Salazar MD [facility] 0 10:28AM 11:51AM Insurance Includes: Active Insurance Policies Plan Name Member ID Group # Subscriber Relationship Effect burton Dates 1 - [facility] [id number] MATTHEW Clodu 08/26/2019 - Unknown Clinical Notes Includes: Clinical Notes from this encounter No Clinical Notes Recorded
--- OUTSIDE RECORDS SUMMARY | 2024-12-09 07:49 | XMS_ITS ---
Author Organization [facility] , [facility] Address [address] [place] [address] Phone Care Team Providers Care Cinema Or Theatre Manager Name Role Phone SANHERIBERTO ALLEN Unavailable [phone] Marcio ALFRED, Stanislav Pittman Unavailable [phone] Problems Includes: Active, inactive, and resolved Problems All Visits Onset Date Resolved Date Provider Condition S tatus Soft Tissue Hip Pain Radiating 05/12/2019 Stanislav Buckley MD Active Last Documented On 9 2:35PM ; [facility], [facility] Plan of Treatment Instructions to patient Instructions for patient See PCP for weight loss Last Documented On 3 8:34AM ; [facility] Lose weight Last Documented On 3 8:45AM ; [facility] Instructions for patient See PCP for weight loss Last Documented On 0 8:59AM ; [facility] Instructions for patient See PCP for BP and weight loss Last Documented On 0 11:32AM ; [facility] Instructions for patient Last Documented On 0 3:17PM ; [facility] Instructions for patient Last Documented On 9 2:37PM ; [facility] Assessments Includes: Assessments for all patient encounters No Assessments Recorded Instructions Includes: Instructions for all patient encounters Instructions to patient Instructions for patient See PCP for weight loss Last Documented On 3 8:34AM ; [facility] Lose weight Last Documented On 3 8:45AM ; [facility] Instructions for patient See PCP for weight loss Last Documented On 0 8:59AM ; [facility], [facility] Instructions for patient See PCP for BP and weight loss Last Documented On 0 11:32AM ; [facility], [facility] Instructions for patient Last Documented On 0 3:17PM ; [facility], [facility] Instructions for patient Last Documented On 9 2:37PM ; [facility], [facility] Medical Equipment - Implanted Devices Includes: Current and historical Devices No Medical Equipment Recorded Medications Includes: Current and historical Medications Current Medications (continue as prescribed) Allopurinol 100 MG Oral Tablet 06/22/2019 Provider: Diagnosis: Last Documented On 9 2:53PM By Sammy Hurt ; [facility], [facility] Lisinopril 10 MG Oral Tablet 05/30/2019 Provider: KENNEDY LYN Diagnosis: Last Documented On 9 2:53PM By Sammy Hurt ; [facility] Past Medications on file Percocet 5-325 MG OR TABS 11/04/2019 - 11/19/2019 Prov ider: Lauri Salazar MD Diagnosis: prn pain Last Documented On 0 2:39PM By Vicki Navarro [facility], [facility] Protonix 40 MG Oral Tablet Delayed Release 07/14/2019 - 08/13/2019 Provider: Stanislav Buckley MD Diagnosis: once a day Last Documented On 9 12:06PM By Sammy Hurt ; [facility], [facility] Ibuprofen 600 MG Oral Tablet 07/14/2019 - 08/13/2019 Toya garcia: Stanislav Buckley MD Diagnosis: Take 1 tablet every 8 hrs prn pain Last Documented On 9 12:08PM By Sammy Hurt ; [facility], [facility] Medrol 4 MG Oral Tablet Ther apy Pack 06/24/2019 - 07/24/2019 Provider: Stanislav Buckley MD Diagnosis: take as directed by medrol dose pack Last Documented On 9 3:45PM By Sammy Hurt ; [facility] Medications Administered Includes: Administered Medications in patient's chart No Administered Medications Recorded Results Includes: Results from 12/10/2023 through 12/09/2024 No Results Recorded For Specified Dates History of Present Illness History of Present Illness not supported for this document type No History of Present Illness Recorded Social History Description Last Updated Tobacco non-user 01/07/2023 Last Documented On 3 12:40PM ; [facility] Caffeine use 01/07/2023 Last Documented On 3 12:40PM ; [facility] No recent change in diet 01/07/2023 Last Documented On 3 12:40PM ; [facility] Yes, current smoker. 01/07/2023 Last Documented On 3 12:40PM ; [facility] No recent change in diet 09/03/2019 Last Documented On 0 9:53AM ; [facility] No tobacco use 09/03/2019 Last Documented On 0 9:53AM ; [facility] Not a current smoker quit 2 years ago Last Documented On 0 9:53AM ; [facility] Not exercising regularly 09/03/2019 Last Documented On 0 9:53AM ; [facility] Not using alcohol 09/03/2019 Last Documented On 0 9:53AM ; [facility] Not using drugs 09/03/2019 Last Documented On 0 9:53AM ; [facility] Smoking status : Former smoker quit 2 ye ars ago 09/03/2019 Last Documented On 0 9:53AM ; [facility] Medical History Includes: Medical History in patient's chart Description Last Updated History of Hypertension 01/07/2023 Last Documented On 3 12:40PM ; [facility] kidney stent and GI scope 09/03/2019 Last Documented On 0 9:53AM ; [facility] Intermittent hypertension 09/03/2019 Last Documented On 0 9:53AM ; [facility] Family History Includes: Family History in patient's chart Description Last Updated Diabetes mellitus 01/07/2023 Last Documented On 3 12:40PM ; [facility] Family history of cancer 01/07/2023 Last Documented On 3 12:40PM ; [facility], [facility] Family history of diabetes mellitus 04/2020 Last Documented On 0 9:53AM ; [facility], [facility] Review of Systems Review of Systems not supported for this document type No Review of Systems Recorded Mental Status Description No anxiety Functional Status No Functional Status Recorded Physical Exam Physical Exam not supported for this document type No Physical Exam Recorded Allergies Includes: Active, inactive, and resolved Allergies No Known Allergies Insurance Includes: Active Insurance Policies Plan Name Member ID Group # Subscriber Relationship Effect burton Dates 1 - [facility] [id number] MATTHEW RODRIGUEZ Self 08/26/2019 - Unknown Clinical Notes Includes: Signed Clinical Notes starting from 08/09/2022 No Clinical Notes Recorded
--- OUTSIDE RECORDS SUMMARY | 2024-12-09 07:49 | XMS_ITS | Clinical Summary ---
Author Organization [facility] Address [address] [place] [address] Phone Care Team Providers Care Ict Security Specialist Name Role Phone HERIBERTO SAN Unavailable [phone] Marcio ALFRED, Stanislav Pittman Unavailable [phone] Reason for Visit and Chief Complaint The Chief Complaint is: Back Pain Problems Includes: Problems addressed during this encounter and other active Problems All Visits Onset Date Resolved Date Provider Condition S tatus Soft Tissue Hip Pain Radiating 05/12/2019 Stanislav Buckley MD Active Last Documented On 9 2:35PM ; [facility], [facility] Plan of Treatment Patient was seen by myself and Dr. Martin Sheikh PA-C. 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 only if at some point he starts feeling that he can do a sit down job is to come back to see us and we can relieve that restriction - Last Documented On 12/23/2019 5:36PM ; [facility], [facility] Instructions to patient Instructions for patient See PCP for weight loss Last Documented On 0 8:59AM ; [facility], [facility] Assessments Includes: Assessments from this encounter Findings L5-S1 microdiscectomy November 18, 2019 - Last Documented On 12/23/2019 5:36PM ; [facility], [facility] Instructions Includes: Instructions from this encounter Instructions to patient Instructions for patient See PCP for weight loss Last Documented On 0 8:59AM ; [facility], [facility] Medical Equipment - Implanted Devices Includes: Current Devices No Medical Equipment Recorded Medications Includes: Medications discussed during this encounter and other current Medications Current Medications (continue as prescribed) Allopurinol 100 MG Oral Tablet 06/22/2019 Provider: Diagnosis: Last Documented On 9 2:53PM By Sammy Hurt ; [facility], [facility] Lisinopril 10 MG Oral Tablet 05/30/2019 Provider: KENNEDY LYN Diagnosis: Last Documented On 9 2:53PM By Sammy Hurt ; [facility], [facility] Past Medications on file Percocet 5-325 MG OR TABS 11/04/2019 - 11/19/2019 Prov ider: Lauri Salazar MD Diagnosis: prn pain Last Documented On 0 2:39PM By Vicki Johnson ; [facility], [facility] Protonix 40 MG Oral Tablet Delayed Release 07/14/2019 - 08/13/2019 Provider: Stanislav Buckley MD Diagnosis: once a day Last Documented On 9 12:06PM By Sammy Hurt ; [facility], [facility] Ibuprofen 600 MG Oral Tablet 07/14/2019 - 08/13/2019 P rostivender: Stanislav Buckley MD Diagnosis: Take 1 tablet every 8 hrs prn pain Last Documented On 9 12:08PM By Sammy Hurt ; [facility], [facility] Medrol 4 MG Oral Tablet Ther apy Pack 06/24/2019 - 07/24/2019 Provider: Stanislav Buckley MD Diagnosis: take as directed by medrol dose pack Last Documented On 9 3:45PM By Sammy Hurt ; [facility], [facility] Medications Administered Includes: Administered Medications from this encounter No Administered Medications Recorded Vital Signs Includes: Vital Signs from this encounter Vital Name 12/17/2019 08:59A Height (in) 74 Weight (lb) 370 Body Mass Index (kg/m2) 47.5 Body Surface Area (m2) 2.8 Note: SLR Last Documented: On 12/17/2019 8:59AM ; [facility], [facility] Results Includes: Results discussed during this encounter No Results Recorded For Specified Dates History of Present Illness Includes: History of Present Illness from this encounter DEMETRIUS RODRIGUEZ is a 29 year old male. - Allergy list reviewed - Problem list reviewed - Medication list reviewed with patient - Medication reconciliation performed Follow-up he was L5-S1 discectomy November 18, 2019. He states he is doing fairly good with his right leg pain. Biggest complaint is when he has been sitting for a while and tries to go to stand he gets some pain in his lower back when she gets up and moving around better. 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 he has been walking for exercise and has been up to about 5 miles one time Social History Description Last Updated No caffeine use 01/07/2023 Last Documented On 0 8:58AM ; [facility] No recent change in diet 09/03/2019 Last Documented On 0 8:58AM ; [facility] No tobacco use 09/03/2019 Last Documented On 0 8:58AM ; [facility] Not a current smoker quit 2 years ago Last Documented On 0 8:58AM ; [facility], [facility] Not exercising regularly 09/03/2019 Last Documented On 0 8:58AM ; [facility] Not using alcohol 09/03/2019 Last Documented On 0 8:58AM ; [facility] Not using drugs 09/03/2019 Last Documented On 0 8:58AM ; [facility], [facility] Smoking status : Former smoker quit 2 ye ars ago 09/03/2019 Last Documented On 0 8:58AM ; [facility], [facility] Procedures and Surgical History Includes: Procedures from this encounter Procedures Code Diagnosis Performing Provider Service L ocation Service Date Clinical summary provided to patient Last Documented On 0 8:59AM ; [facility], [facility] Medical History Includes: Medical History addressed during this encounter Description Last Updated kidney stent and GI scope 09/03/2019 Last Documented On 0 8:58AM ; [facility], [facility] Intermittent hypertension 09/03/2019 Last Documented On 0 8:58AM ; [facility], [facility] Family History Includes: Family History addressed during this encounter Description Last Updated Family history of diabetes mellitus 04/2020 Last Documented On 0 8:58AM ; [facility] Review of Systems Includes: Review of Systems [...] Time Diagnosis Post Op Lauri Salazar MD [facility] 0 8:56AM 9:23AM Insurance Includes: Active Insurance Policies Plan Name Member ID Group # Subscriber Relationship Effect burton Dates 1 - [facility] [id number] MATTHEW RODRIGUEZ Self 08/26/2019 - Unknown Clinical Notes Includes: Clinical Notes from this encounter No Clinical Notes Recorded
--- OUTSIDE RECORDS SUMMARY | 2024-12-09 07:49 | XMS_ITS | Clinical Summary ---
Author Organization [facility] , [facility] Address [address] [place] [address] Phone Care Team Providers Care Corporate Physical Security Supervisor Name Role Phone HERIBERTO SAN Unavailable [phone] Marcio ALFRED, Stanislav Pittman Unavailable [phone] Reason for Visit and Chief Complaint The Chief Complaint is: Low Back Pain Problems Includes: Problems addressed during this encounter and other active Problems All Visits Onset Date Resolved Date Provider Condition S tatus Soft Tissue Hip Pain Radiating 05/12/2019 Stanislav Buckley MD Active Last Documented On 9 2:35PM ; [facility], [facility] Plan of Treatment Patient was seen by myself Jimy Sheikh PA-C. Patient will follow up with us as needed patient is working on weight loss we will we did discuss weight loss with him he is getting ready to go on some sort of injectable medicine to help with weight loss. 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 - Last Documented On 01/07/2023 12:40PM ; [facility], [facility] Instructions to patient Instructions for patient See PCP for weight loss Last Documented On 3 8:34AM ; [facility], [facility] Lose weight Last Documented On 3 8:45AM ; [facility], [facility] Assessments Includes: Assessments from this encounter Findings Right L5-S1 decompression November 06, 2019 - Last Documented On 01/07/2023 12:40PM ; [facility], [facility] Instructions Includes: Instructions from this encounter Instructions to patient Instructions for patient See PCP for weight loss Last Documented On 3 8:34AM ; [facility], [facility] Lose weight Last Documented On 3 8:45AM ; [facility], [facility] Medical Equipment - Implanted Devices Includes: Current Devices No Medical Equipment Recorded Medications Includes: Medications discussed during this encounter and other current Medications Current Medications (continue as prescribed) Allopurinol 100 MG Oral Tablet 06/22/2019 Provider: Diagnosis: Last Documented On 9 2:53PM By Sammy Hurt ; [facility], [facility] Lisinopril 10 MG Oral Tablet 05/30/2019 Provider: KENNEDY LYN Diagnosis: Last Documented On 9 2:53PM By Sammy Hurt ; [facility], [facility] Past Medications on file Percocet 5-325 MG OR TABS 11/04/2019 - 11/19/2019 Prov ider: Lauri Salazar MD Diagnosis: prn pain Last Documented On 0 2:39PM By Vicki Johnson ; [facility], [facility] Protonix 40 MG Oral Tablet Delayed Release 07/14/2019 - 08/13/2019 Provider: Stanislav Buckley MD Diagnosis: once a day Last Documented On 9 12:06PM By Sammy Hurt ; [facility] Ibuprofen 600 MG Oral Tablet 07/14/2019 - 08/13/2019 P jose: Stanislav Buckley MD Diagnosis: Take 1 tablet every 8 hrs prn pain Last Documented On 9 12:08PM By Sammy Hurt ; [facility], [facility] Medrol 4 MG Oral Tablet Ther apy Pack 06/24/2019 - 07/24/2019 Provider: Stanislav Buckley MD Diagnosis: take as directed by medrol dose pack Last Documented On 9 3:45PM By Sammy Hurt ; [facility], [facility] Medications Administered Includes: Administered Medications from this encounter No Administered Medications Recorded Vital Signs Includes: Vital Signs from this encounter Vital Name 01/07/2023 08:45A Height (in) 73 Weight (lb) 418 Body Mass Index 55.1 Body Surface Area 2.9 Note: mg Last Documented: On 01/07/2023 8:45AM ; [facility], [facility] Results Includes: Results discussed during this encounter No Results Recorded For Specified Dates History of Present Illness Includes: History of Present Illness from this encounter DEMETRIUS RODRIGUEZ is a 32 year old male. - Allergy list reviewed - Problem list reviewed - Medication reconciliation performed - Medication list reviewed - Medication list reviewed with patient - Yes, previous treatment. Patient had a previous right-sided L5-S1 decompression November 06, 2019. At that point we gave him restrictions of occasional twisting bending and have more of a stand-up job for work. He has been attempting to try to switch positions at work and needs some clarification of some changes on his work restrictions as back is mainly just sore is not complaining of any leg pain with this. When he got hurt he was doing a job where he ended up repetitively getting out of the vehicle and do a lot of repetitive bending and twisting. 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 Social History Description Last Updated Tobacco non-user 01/07/2023 Last Documented On 3 12:40PM ; [facility] Caffeine use 01/07/2023 Last Documented On 3 12:40PM ; [facility] No recent change in diet 01/07/2023 Last Documented On 3 12:40PM ; [facility] Yes, current smoker. 01/07/2023 Last Documented On 3 12:40PM ; [facility] No recent change in diet 09/03/2019 Last Documented On 3 8:34AM ; [facility] No tobacco use 09/03/2019 Last Documented On 3 8:34AM ; [facility] Not a current smoker quit 2 years ago Last Documented On 3 8:34AM ; [facility] Not exercising regularly 09/03/2019 Last Documented On 3 8:34AM ; [facility] Not using alcohol 09/03/2019 Last Documented On 3 8:34AM ; [facility] Not using drugs 09/03/2019 Last Documented On 3 8:34AM ; [facility] Smoking status : Former smoker quit 2 ye ars ago 09/03/2019 Last Documented On 3 8:34AM ; [facility], [facility] Procedures and Surgical History Includes: Procedures from this encounter Procedures Code Diagnosis Performing Provider Service L ocation Service Date use of tobacco assessment performed 1000F Last Documented On 3 8:45AM ; [facility] an X-ray was performed 26321 Last Documented On 3 8:44AM ; [facility] an MRI was performed [id number] Last Documented On 3 8:44AM ; [facility] Medical History Includes: Medical History addressed during this encounter Description Last Updated History of Hypertension 01/07/2023 Last Documented On 3 12:40PM ; [facility] kidney stent and GI scope 09/03/2019 Last Documented On 3 8:34AM ; [facility] Intermittent hypertension 09/03/2019 Last Documented On 3 8:34AM ; [facility] Family History Includes: Family History addressed during this encounter Description Last Updated Diabetes mellitus 01/07/2023 Last Documented On 3 12:40PM ; [facility] Family history of cancer 01/07/2023 Last Documented On 3 12:40PM ; [facility] Family history of diabetes mellitus 04/2020 Last Documented On 3 8:34AM ; [facility] Review of Systems Includes: Review of Systems from this encounter Systemic: Not feeling tired, no recent weight loss, and no recent weight gain. No edema. Head: No headache and no sinus pain. Eyes: No vision problems. Vision problems wears glasses/contacts. No Cataracts. Glasses/Contacts. No Glaucoma. Otolaryngeal: No hearing loss and no tinnitus. No nasal symptoms. Cardiovascular: No chest pain or discomfort, no palpitations, no Hypertension, and no High Cholesterol. Pulmonary: No daytime asthma symptoms, no cough, and no chronic cough. No wheezing. Gastrointestinal: No heartburn and no abdominal pain. No Indigestion, no Acid Reflux, no Peptic Ulcer, no GI Stomach Bleed, and no Ulcers. Endocrine: No hot flashes, no muscle weakness, no Diabetes, no Hypothyroid, and no Hyperthyroid. Hematologic: No easy bleeding, no tendency for easy bruising, and no Anemia. Musculoskeletal: No Arthritis and no lower back pain. No soft tissue swelling and no localized joint pain. Neurological: No dizziness, no convulsions, and no numbness. Psychological: No anxiety, no emotional lability, no depression, and no insomnia. Not crying for no reason. Skin: No dry skin. No Ulcers, no Scars, no rash, and no ulcers. Allergic and Immunologic: No complaint of seasonal allergic reaction. Mental Status Includes: Mental Status from this encounter Description No anxiety Functional Status Includes: Functional Status from this encounter No Functional Status Recorded Physical Exam Includes: Physical Exam from this encounter Allergies Includes: Active Allergies No Known Allergies Encounters Encounter Provider Location Date Check-In Time Check- Out Time Diagnosis Follow Up Jimy Sheikh PA-C [facility] 3 8:30AM 8:59AM Insurance Includes: Active Insurance Policies Plan Name Member ID Group # Subscriber Relationship Effect bur[place] Dates [id number] MATTHEW RODRIGUEZ Self 08/26/2019 - Unknown Clinical Notes Includes: Clinical Notes from this encounter * Progress note Date Encounter Last Documented by 01/07/2023 Follow Up Last documented on 01/07/2023; 12:40 PM, Jimy Crook; [facility] Active Problems & Conditions - Soft Tissue Hip Pain Radiating Chief Complaint The Chief Complaint is: Low Back Pain. Referred Here Referred by PCP. History of Present Illness MATTHEW RODRIGUEZ is a 32 year old male. - Allergy list reviewed - Problem list reviewed - Medication reconciliation performed - Medication list reviewed - Medication list reviewed with patient - Yes, previous treatment. Patient had a previous right-sided L5-S1 decompression November 06, 2019. At that point we gave him restrictions of occasional twisting bending and have more of a stand-up job for work. He has been attempting to try to switch positions at work and needs some clarification of some changes on his work restrictions as back is mainly just sore is not complaining of any leg pain with this. When he got hurt he was doing a job where he ended up repetitively getting out of the vehicle and do a lot of repetitive bending and twisting. 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 Current Medication - Allopurinol 100 MG Oral Tablet 30 days, 0 refills - Lisinopril 10 MG Oral Tablet 30 days, 0 refills Past Medical/Surgical History Reported: Medical: Intermittent hypertension. Diagnoses: Hypertension Kidney stent and GI scope. Social History Yes, current smoker. Current diet: No recent change in diet. No recent change in diet. Caffeine use: Caffeine use. Tobacco use: No tobacco use and not a current smoker quit 2 years ago. Tobacco non-user. Smoking status: Former smoker quit 2 years ago. Alcohol: Not using alcohol. Drug Use: Not using drugs. Habits: Not exercising regularly. Allergies - No Known Allergies Family History Cancer Diabetes mellitus Diabetes mellitus Review Of Systems Systemic: Not feeling tired, no recent weight loss, and no recent weight gain. No edema. Head: No headache and no sinus pain. Eyes: No vision problems. Vision problems wears glasses/contacts. No Cataracts. Glasses/Contacts. No Glaucoma. Otolaryngeal: No hearing loss and no tinnitus. No nasal symptoms. Cardiovascular: No chest pain or discomfort, no palpitations, no Hypertension, and no High Cholesterol. Pulmonary: No daytime asthma symptoms, no cough, and no chronic cough. No wheezing. Gastrointestinal: No heartburn and no abdominal pain. No Indigestion, no Acid Reflux, no Peptic Ulcer, no GI Stomach Bleed, and no Ulcers. Endocrine: No hot flashes, no muscle weakness, no Diabetes, no Hypothyroid, and no Hyperthyroid. Hematologic: No easy bleeding, no tendency for easy bruising, and no Anemia. Musculoskeletal: No Arthritis and no lower back pain. No soft tissue swelling and no localized joint pain. Neurological: No dizziness, no convulsions, and no numbness. Psychological: No anxiety, no emotional lability, no depression, and no insomnia. Not crying for no reason. Skin: No dry skin. No Ulcers, no Scars, no rash, and no ulcers. Allergic and Immunologic: No complaint of seasonal allergic reaction. Physical Findings - Vitals taken 01/07/2023 08:45 am mg Height 73 in Weight 418 lbs Body Mass Index 55.1 kg/m2 Body Surface Area 2.9 m2 Standard Measurements: - Patient was overweight. Patient is overweight he has 5 out of 5 EHL gastroc quadricep tibialis anterior strength bilaterally negative straight leg raise bilaterally 2+ Achilles and patellar reflexes bilaterally Assessment Right L5-S1 decompression November 06, 2019 Previous Tests Imaging: X-Ray: An X-ray was performed. MRI Scan: An MRI was performed. Available previous imaging studies were reviewed Available previous history reviewed Counseling/Education - Instructions for patient See PCP for weight loss - Lose weight Plan Patient was seen by myself Jimy Sheikh PA-C. Patient will follow up with us as needed patient is working on weight loss we will we did discuss weight loss with him he is getting ready to go on some sort of injectable medicine to help with weight loss. 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 Notes This dictation was done with voice recognition software and may contain errors and omissions. Practice Management Use of tobacco assessment performed. Care Team - HERIBERTO SAN - [employer]
--- OUTSIDE RECORDS SUMMARY | 2024-12-09 07:49 | XMS_ITS | Clinical Summary ---
Author Organization [facility] , [facility] Address [address] [place] [address] Phone Care Team Providers Care Business Performance Analyst Name Role Phone HERIBERTO SAN Unavailable [phone] Marcio ALFRED, Stanislav Pittman Unavailable [phone] Reason for Visit and Chief Complaint [Patient Encounter] Problems Includes: Problems addressed during this encounter and other active Problems All Visits Onset Date Resolved Date Provider Condition S tatus Soft Tissue Hip Pain Radiating 05/12/2019 Stanislav Buckley MD Active Last Documented On 9 2:35PM ; [facility] Plan of Treatment No Plan of Treatment Recorded Assessments Includes: Assessments from this encounter No Assessments Recorded Medical Equipment - Implanted Devices Includes: Current Devices No Medical Equipment Recorded Medications Includes: Medications discussed during this encounter and other current Medications Current Medications (continue as prescribed) Allopurinol 100 MG Oral Tablet 06/22/2019 Provider: Diagnosis: Last Documented On 9 2:53PM By Sammy Navarro [facility] Lisinopril 10 MG Oral Tablet 05/30/2019 Provider: KENNEDY LYN Diagnosis: Last Documented On 9 2:53PM By Sammy Hurt ; [facility] Medications Administered Includes: Administered Medications from [...] Date Check-In Time Check- Out Time Diagnosis [Patient Encounter] Lauri Salazar MD [facility] Surgical Division 0 3:23PM 11:59PM Insurance Includes: Active Insurance Policies Plan Name Member ID Group # Subscriber Relationship Effect [facility] Dates [id number] MATTHEW RODRIGUEZ Self 08/26/2019 - Unknown Clinical Notes Includes: Clinical Notes from this encounter No Clinical Notes Recorded
--- OUTSIDE RECORDS SUMMARY | 2024-12-09 07:49 | XMS_ITS ---
Care Plan - [facility], [facility] Created on: December 09, 2024 JENNIFER MATTHEW : 1990 Sex: Male Author Organization [facility], [facility] Address [address] [place] [id number] Phone Care Team Providers Care Butt Trimmer Name Role Phone HERIBERTO SAN Unavailable [phone] Marcio ALFRED, Stanislav Pittman Unavailable [phone]
[2024-12-09 08:52] LABS: Chol/HDL Ratio 4.5 (1-3.5); Cholesterol 157 mg/dl (140-200); HDL Cholesterol 35 mg/dl (40-60); Triglycerides 182 mg/dl (30-150); VLDL Cholesterol 36 mg/dL (0-40)
[2024-12-09 09:02] LABS: Direct LDL Cholesterol 92.72 mg/dL (100-129)
[2024-12-12 21:28] LABS: Testosterone,Free 7.3 pg/mL (8.7-25.1)
[2024-12-18 18:10] LABS: Testosterone, Total, LC/MS 266 ng/dL (.)
== END 2024-12-09 23:59 | disposition home or self-care (01) ==
LOC: LAB 07:47
PROVIDERS: PCP Family Medicine; Visit Provider Family Medicine
DX: I10 Essential (primary) hypertension (principal); R79.89 Other specified abnormal findings of blood chemistry
CPT/HCPCS: 36415; 80061; 84402; 84403

== ENCOUNTER 2025-07-18 15:31 | Emergency (ER) | payer BC, SELFPAY ==
--- OUTSIDE RECORDS SUMMARY | 2025-06-10 07:10 | XMS_ITS | Encounter Summary ---
Author Organization [facility] Address [address] [place] [address] Care Team Providers Care Wireless Field Technician Name Role Phone Ekaterina Tinoco MD Primary Care Provider [phone] Reason for Referral * Imaging (Routine) - Closed Specialty Diagnoses / Procedures Referred By Contac t Referred To Contact Radiology Diagnoses Injury of right shoulder, initial encounter Procedures MR Shoulder Right wo IV Contrast Agatha Gibson APRN [address] [place] [address] Phone: tel: fax: Referral ID Status Reason Start Date Expiration Date Visits Re quested Visits Authorized [id number] Closed 06/10/2025 12/10/2026 1 1 Reason for Visit * Reason Comments Pain Worker's Compensation * Consultation (Routine) - Denied Specialty Diagnoses / Procedures Referred By Contact Referred To Contact Orthopaedic Surgery / Sports Medicine Diagnoses Right shoulder pain Leonarda Henry PA [address] [place] [address] Phone: tel: fax: [facility] [address] [place] [address] Phone: tel: fax: Referral ID Status Reason Start Date Expiration Date V isits Requested Visits Authorized [id number] Denied Specialty Services Required 06/01/2025 12/01/2026 1 0 Encounter Details Date Type Department Care Team (Late st Contact Info) Description 06/10/2025 8:10 AM EDT Office Visit [facility] Orthopaedic Surgery & Sports Medicine [address], [address] [place] [address] Eleuterio Winston MD [address] [place] [address] Injury of right shoulder, initial encounter (Primary Dx); Bicipital tendinitis, right shoulder Social History Tobacco Use Types Packs/Day Years Used Date Smoking Tobacco: Former Cigarettes 0.5 13 2 012 - 08/17/2024 Passive Smoke Exposure: Current Smokeless Tobacco: Never Tobacco Cessation:Counseling Given: Not Answered Alcohol Use Standard Drinks/Week Comments Never 0 (1 standard drink = 0.6 oz pur e alcohol) Humiliation, Afraid, Rape, and Kick questionnair e Answer Date Recorded Within the last year, have y ou been afraid of your partner or ex-partner? No 12/07/2024 Within the last year, have y ou been humiliated or emotionally abused in other ways by your partner or ex-partner? No Within the last year, have y ou been kicked, hit, slapped, or otherwise physically hurt by your partner or ex-partner? No 12/07/2024 Within the last year, have y ou been raped or forced to have any kind of sexual activity by your partner or ex-partner? No 12/07/2024 PHQ-2 Answer Date Recorded Patient Health Questionnaire-2 Score 0 12/07/2024 Hunger Vital Sign Answer Date Recorded Within the past 12 months, y ou worried that your food would run out before you got the money to buy more. Never true 12/08/19 25 Within the past 12 months, t he food you bought just didn't last and you didn't have money to get more. Never true 12/07/2024 PRAPARE - Transportation Answer Date Re corded In the past 12 months, has l ack of transportation kept you from medical appointments or from getting medications? No 11/24 In the past 12 months, has l ack of transportation kept you from meetings, work, or from getting things needed for daily living? No 12/07/2024 Housing Stability Vital Sign Answer Srinivas e Recorded In the last 12 months, was t here a time when you were not able to pay the mortgage or rent on time? No 11/11/2023 Number of Places Lived in the Last Year Not on f ile 11/11/2023 In the last 12 months, was t here a time when you did not have a steady place to sleep or slept in a retirement (including now)? No 11/11/2023 PHQ-9 Answer Date Recorded Patient Health Questionnaire-9 Score 0 12/07/2024 Housing Stability Vital Sign Answer Srinivas e Recorded In the last 12 months, was t here a time when you were not able to pay the mortgage or rent on time? No 12/07/2024 In the past 12 months, how m any times have you moved where you were living? 0 12/07/2024 At any time in the past 12 m [facility], were you homeless or living in a retirement (including now)? No 12/07/2024 Safety and Environment Answer Date Kraig rded Do you worry that your child may have been physically abused? No 11/11/2023 Do you worry that your child may have been sexua lly abused? No 11/11/2023 Are there any guns kept in o r around your home or where your child spends time? No 11/11/2023 Guns Unloaded or Locked Away Not on file Utilities Answer Date Recorded In the past 12 months has th e listedplaces, gas, oil, or water company threatened to shut off services in your home? No 12/07/2024 PHQ-2A Answer Date Recorded Patient Health Questionnaire-2 Score 0 07/01/2023 Sex and Gender Information Value Date Recorded Sex Assigned at Not on file Legal Sex Male 6:22 PM EDT Gender Identity Not on file Sexual Orientation Not on file documented as of this encounter Last Filed Vital Signs Vital Sign Reading Time Taken Comments Blood Pressure 138/85 06/10/2025 7:54 AM EDT Pulse - - Temperature - - Respiratory Rate - - Oxygen Saturation - - Inhaled Oxygen Concentration - - Weight 161 kg (355 lb) 06/10/2025 7:54 AM EDT Height 188 cm (6' 2 ) 06/10/2025 7:54 AM EDT Body Mass Index 45.58 06/10/2025 7:54 AM EDT documented in this encounter Miscellaneous Notes * Progress Notes - Eleuterio Winston MD - 06/10/2025 8:10 AM EDT History of present illness: Gus Dash is a 35 y.o. male who presents today as a new patient for evaluation of right shoulder pain. Patient works at [employer]. This is a worker's compensation injury. Patient states just over 1 month ago while on the job lifting a heavy part weighing approximately 30 lb he noted pain. This was on a Saturday and he attempted to ice, take ibuprofen over the weekend. He noted the following Saturday he was again lifting parts when he had an acute pain she had from his right anterior shoulder down into his biceps. He had difficulty raising his arm at that time and followed a injury. He was seen and evaluated at [facility] who referred him to physical therapy. He has now been completing physical therapy for the last month and has had improvements with range of motion and some pain although he does continue to have acute right shoulder pain with any out reached liftingactivities. He also notes intermittent popping that initially was very painful but has somewhat improved as well. Primarily on the anterior shoulder radiates down into his biceps. He was referred here due to continued symptoms for evaluation and management. Currently working on restrictions of no lifting, pushing, pulling greater than 5 lb. I have reviewed and updated the patient's past medical history, past surgical history, social history, and family history. This is located both in the patient's note and their intake form that has been scanned into the medical record for today's visit. 14 point review of systems was reviewed per signed intake sheet and is otherwise negative except asnoted above. Objective: Constitutional: Well developed, well nourished, no acute distress HEENT: mucous membranes moist, normocephalic atraumatic Psychologic: appropriate mood and affect Chest: bilateral chest elevations, symmetric Cardiovascular: pink extremities, peripheral perfusion intact Respiratory: no respiratory distress, nonlabored on room air Abdomen: soft, nontender Neurologic: orientation to person, place and time Right SHOULDER EXAM There is no cervical tenderness and negative Spurling's. No obvious atrophy or deformity. No scapular dyskinesia. Patient has tenderness about the anterior shoulder. Active elevation is 170??, external rotation at the side 60??, internal rotation to T10. There is full passive range of motion. Thereis pain with elevation and resisted strength testing. There is pain with resisted external rotation. There is no weakness to supraspinatus testing, no obvious weakness to external rotation. The patient has a painful arc of abduction and mild positive impingement signs. There is a positive Speed's test and equivocal Yergason's test. There is no vera deformity. There is no significant pain with cross-arm adduction. No signs of instability or apprehension. Distal neurovascular exam is normal. The patient has a warm and well-perfused upper extremity with capillary refill less than 2 seconds.Sensation is intact to light touch in terminal nerve distributions. The patient has no palpable epitrochlear lymphadenopathy. Imaging: X-Rays: Personally reviewed radiographs from an outside facility dated 05/10/2025 which demonstrates preserved joint space with humeral head aligned at the glenoid. No evidence of acute fracture or dislocation. Assessment/Plan Gus Dash is a 35-year-old male seen today just over 1 month out from an on-the-job right shoulder injury. Patient works at [employer]. This is a worker's compensation case. Patient is describing a biceps tendon injury and possible rotator cuff strain. We will plan to obtain an MRI to further evaluate and have him follow up after to discuss the results and plan. Continue current work restrictions until follow-up after MRI. No PT until after follow-up. Work note provided today. documented in this encounter Plan of Treatment Upcoming Encounters Date Type Department Care Team (Late st Contact Info) Description 08/12/2025 9:20 AM EST Office Visit [facility] Orthopaedic Surgery & Sports Medicine [address] [place] [address] Eleuterio Winston MD [address] [place] [address] 10/11/2025 3:20 PM EST Office Visit [facility] [address] [address] Ekaterina Tinoco MD [address] [address] documented as of this encounter Results * MR Shoulder Right wo IV Contrast (06/25/2025 11:30 AM EDT) Anatomical Region Laterality Modality Upper Extremities Right Magnetic Reson ance Impressions 06/25/2025 3:22 PM EDT Examination is limited on some sequences due to motion. Findings suggestive of degeneration and tearing of the anterior labrum with some superior extension inferiorly. Small volume fluid within the subacromial subdeltoid bursa could represent a mild degree of bursitis. CRITICAL RESULT: No. COMMUNICATION: Per this written report. By electronically signing this report, I, the attending physician, attest that I have personally reviewed the images/data for the above examination(s) and agree with the final edited report. Drafted by Eros Tamayo MD on 06/25/2025 2:02 PM Final report signed by Tory Robbins MD on 06/25/2025 3:22 PM Narrative 06/25/2025 3:22 PM EDT CLINICAL INDICATION: Shoulder pain, chronic, rotator cuff disorder suspected, xray done TECHNIQUE: Axial proton density, coronal proton density, coronal T2 FS, sagittal T2 FS, sagittal T1. COMPARISON: Outside radiographs of the right shoulder from 05/10/[address] chest from 07/29/2024. FINDINGS: Mild motion artifact. Tendons/Muscles: The rotator cuff is intact with no evidence of high-grade partial-thickness or full thickness tearing. The long head of biceps tendon is normal in its intra and extra-articular position with no evidence of tear or degeneration. The rotator cuff muscle volume is normal. Labrum: The labrum is difficult to evaluate secondary to patient motion. Heterogenous appearance and overall increased T2 signal of the superior labrum, more notably anteriorly with some superior extension. No paralabral cyst. Cartilage: The cartilage is smoothly congruent throughout the joint space without focal deficits or osteochondral defect (OCD). Bones and Joints: There is no fracture, AVN, or intraosseous lesion. The acromioclavicular joint is intact. Soft Tissues: The quadrilateral space, spinoglenoid notch and suprascapular notch are normal in signal with no evidence of space occupying mass. There is no edema or fat replacement in the rotator interval or soft tissue thickening in the axillary pouch. There is no joint effusion. Small volume fluid in the subacromial subdeltoid bursa could represent a mild degree of bursitis. Procedure Note Tory Robbins MD - 06/25/2025 CLINICAL INDICATION: Shoulder pain, chronic, rotator cuff disorder suspected, xray done TECHNIQUE: Axial proton density, coronal proton density, coronal T2 FS, sagittal T2FS, sagittal T1. COMPARISON: Outside radiographs of the right shoulder from 05/10/[address] chestfrom 07/29/2024. FINDINGS: Mild motion artifact. Tendons/Muscles: The rotator cuff is intact with no evidence of dbou-zpeginxwdwmd-hyqmjdvrr or full thickness tearing. The long head of bicepstendon is normal in its intra and extra-articular position with noevidence of tear or degeneration. The rotator cuff muscle volume isnormal. Labrum: The labrum is difficult to evaluate secondary to patient motion.Heterogenous appearance and overall increased T2 signal of the superiorlabrum, more notably anteriorly with some superior extension. Noparalabral cyst. Cartilage: The cartilage is smoothly congruent throughout the joint spacewithout focal deficits or osteochondral defect (OCD). Bones and Joints: There is no fracture, AVN, or intraosseous lesion. Theacromioclavicular joint is intact. Soft Tissues: The quadrilateral space, spinoglenoid notch andsuprascapular notch are normal in signal with no evidence of spaceoccupying mass. There is no edema or fat replacement in the rotatorinterval or soft tissue thickening in the axillary pouch. There is nojoint effusion. Small volume fluid in the subacromial subdeltoid bursacould represent a mild degree of bursitis. IMPRESSION: Examination is limited on some sequences due to motion. Findings suggestive of degeneration and tearing of the anterior labrumwith some superior extension inferiorly. Small volume fluid within the subacromial subdeltoid bursa could representa mild degree of bursitis. CRITICAL RESULT: No. COMMUNICATION: Per this written report. By electronically signing this report, I, the attending physician, angelica I have personally reviewed the images/data for the aboveexamination(s) and agree with the final edited report. 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
--- OUTSIDE RECORDS SUMMARY | 2025-06-25 09:12 | XMS_ITS | Encounter Summary ---
Author Organization [facility] Address [address] [place] [address] Care Team Providers Care Roadside Mechanic Name Role Phone Ekaterina Tinoco MD Primary Care Provider [phone] Reason for Referral * Imaging (Routine) - Closed Specialty Diagnoses / Procedures Referred By Jillian ann Referred To Contact Radiology Diagnoses Injury of right shoulder, initial encounter Procedures MR Shoulder Right wo IV Contrast Agatha Gibson APRN 1 [facility] [address] [place] [address] Phone: tel: fax: Referral ID Status Reason Start Date Expiration Date Visits Re quested Visits Authorized [id number] Closed 06/10/2025 12/10/2026 1 1 Reason for Visit * Imaging (Routine) - Closed Specialty Diagnoses / Procedures Referred By Jillian ann Referred To Contact Radiology Diagnoses Injury of right shoulder, initial encounter Procedures MR Shoulder Right wo IV Contrast Agatha Gibson APRN 9 [facility] [address] [place] [address] Phone: tel: fax: Referral ID Status Reason Start Date Expiration Date Visits Re quested Visits Authorized [id number] Closed 06/10/2025 12/10/2026 1 1 Encounter Details Date Type Department Care Team (Latest Contact Info) Description 06/25/2025 10:12 AM EDT - 06/25/2025 11:59 PM EDT Hospital Encounter [facility] [address] [place] [address] Injury of right shoulder, initial encounter Discharge Disposition: Home or Self Care Social History Tobacco Use Types Packs/Day Years Used Date Smoking Tobacco: Former Cigarettes 0.5 13 2 012 - 08/17/2024 Passive Smoke Exposure: Current Smokeless Tobacco: Never Alcohol Use Standard Drinks/Week Comments Never 0 [...] place to sleep or slept in a assisted (including now)? No 11/11/2023 PHQ-9 Answer Date [...] any time in the past 12 m [facility], were you homeless or living in a assisted (including now)? No 12/07/2024 Safety and Environment [...] the past 12 months has th e Shoulder Tap, gas, oil, or water Medical Referral Source threatened to shut off services in your home? No 12/07/2024 PHQ-2A Answer Date Recorded Patient Health Questionnaire-2 Score 0 07/01/2023 Sex and Gender Information Value Date Recorded Sex Assigned at Not on file Legal Sex Male 6:22 PM EDT Gender Identity Not on file Sexual Orientation Not on file documented as of this encounter Medications at Time of Discharge allopurinol (Zyloprim) 100 MG tabletIndications :Gout, unspecified cause, unspecified chronicity, unspecified site Take 1 tablet by mouth daily. 90 tablet 3 04/09/2025 B-D 3CC LUER-TENISHA SYR 86AX9-3/2 18G X 1-1/2 3 ML misc USE TO DRAW UP TESTOSTERONE 09/20/2022 B-D DISP NEEDLE 30GX1 30G X 1 misc USE TO INJECT TESTOSTERONE 09/05/2022 chlorthalidone (Hygroton) 25 MG tabletIndications :Essential (primary) hypertension Take 1 tablet by mouth daily. 90 tablet 3 04/09/2025 cyclobenzaprine (Flexeril) 5 MG tablet Take 1 tablet by mouth daily as needed. 05/10/2025 Insulin Syringe-Needle U-100 (B-D INSULIN SYRINGE 1CC/27G) 27G X 1/2 1 ML miscIndications:L ow testosterone in male 1 application every 14 (fourteen) days. 2 each 3 06/25/2022 losartan (Cozaar) 50 MG tabletIndications :Essential (primary) hypertension Take 1 tablet by mouth daily. 90 tablet 3 04/09/2025 Needle, Disp, (BD Disp Od[place]) 27G X 1/2 miscIndications:L ow testosterone in male 1 applicator every 14 (fourteen) days. 2 each 3 06/25/2022 Needle, Disp, 22G X 1 miscIndications:L ow testosterone 1 each every 14 (fourteen) days. 6 each 2 09/05/2022 Tirzepatide-Weigh t Management (Zepbound) 15 MG/0.5ML solution auto-injectorIndi cations:Class 3 severe obesity without serious comorbidity with body mass index (BMI) of 40.0 to 44.9 in adult, unspecified obesity type Inject 15 mg under the skin 1 time per week. 6 mL 3 04/09/2025 Xyosted 100 MG/0.5ML solution auto-injector Inject under the skin every 7 days. 01/20/2025 meloxicam (Mobic) 15 MG tablet Take 1 tablet by mouth. 05/31/2025 5 documented as of this encounter Plan of Treatment Upcoming Encounters Date Type Department Care Team (Late st Contact Info) Description 08/12/2025 9:20 AM EST Office Visit [facility] Orthopaedic Surgery & Sports Medicine [address] [place] [address] Eleuterio Winston MD [address] [facility] [address] [place] [address] 10/11/2025 3:20 PM EST Office Visit [address] [address] Ekaterina Tinoco MD [address] [place] [address] documented as of this encounter Procedures Procedure Name Priority Date/Time Associated Diagnosis Comments MR SHOULDER RIGHT WO IV CONTRAST Routine 06/25/2025 11:30 AM EDT Injury of right shoulder, initial encounter documented in this encounter Results * MR Shoulder Right [...] cuff is intact with no evidence of ozve-bmwnmkkhbvit-hkjnhqztu or full thickness tearing. The long head [...] signing this report, I, the attending physician, attangieat I have personally reviewed the images/data for the aboveexamination(s) and agree with the final edited report. Drafted by Eros Tamayo MD on 06/25/2025 2:02 PM Final report signed by Tory Robbins MD on 06/25/2025 3:22 PM Agatha Gibson BANANA HANDLER IMG MRI PROCEDURES Final Result documented in this encounter Visit Diagnoses Diagnosis Injury of right shoulder, initial encounter documented [...] documented as of this encounter Care Teams Roadside Mechanic Relationship Specialty Start Date End Date Ekaterina Tinoco MD [address] [place] [address] PCP - General Family Medicine 12/06/23 documented as of this encounter
--- OUTSIDE RECORDS SUMMARY | 2025-06-29 15:40 | XMS_ITS | Encounter Summary ---
Author Organization [facility] [place] Address [address] [place] [address] Care Team Providers Care Police And Fire Dispatcher Name Role Phone Ekaterina Tinoco MD Primary Care Provider [phone] Reason for Referral * Consultation (Routine) - Pending Review Specialty Diagnoses / Procedures Referred By Contac t Referred To Contact Physical Therapy Diagnoses Bicipital tendinitis, right shoulder Dyskinesis of right scapula Eleuterio Winston MD [address] [address] Phone: tel: fax: Referral ID Status Reason Start Date Expiration Date Visits Requested Visits Authorized [id number] Pending Review Consult and Treat 06/29/2025 12/29/2026 1 1 * Other Medical (Routine) - Closed Specialty Diagnoses / Procedures Referred By Contac t Referred To Contact Sports Medicine Diagnoses Bicipital tendinitis, right shoulder Procedures Sports Medicine - USG Injection, Medium Joint Eleuterio Winston MD [address] [address] Phone: tel: fax: [facility] [address] , [address] [place] [address] Phone: tel: fax: Referral ID Status Reason Start Date Expiration Date Visits Re quested Visits Authorized [id number] Closed 06/29/2025 12/29/2026 1 1 Reason for Visit * Reason Comments Pain Follow-up Encounter Details Date Type Department Care Team (Late st Contact Info) Description 06/29/2025 3:40 PM EST Office Visit [facility] [address] [facility], [address] [place] [address] Eleuterio Winston MD [address] [place] [address] Bicipital tendinitis, right shoulder (Primary Dx); Dyskinesis of right scapula Social History Tobacco Use Types Packs/Day Years [...] place to sleep or slept in a mcc (including now)? No 11/11/2023 PHQ-9 Answer Date [...] any time in the past 12 m [facility], were you homeless or living in a mcc (including now)? No 12/07/2024 Safety and Environment [...] the past 12 months has th e [employer], gas, oil, or water company threatened to [...] Sign Reading Time Taken Comments Blood Pressure 124/73 06/29/2025 3:20 PM EST Pulse - - Temperature - - Respiratory Rate - - Oxygen Saturation - - Inhaled Oxygen Concentration - - Weight 161 kg (354 lb) 06/29/2025 3:20 PM EST Height 188 cm (6' 2 ) 06/29/2025 3:20 PM EST Body Mass Index 45.45 06/29/2025 3:20 PM EST documented in this encounter Miscellaneous Notes * Progress Notes - Amina Conroy, DO - 06/29/2025 3:40 PM EST History of present illness: Gus Dash is a 35 y.o. male who presents today for reevaluation of right shoulder pain and MRI review. Patient states his pain overall is improving but he does continue to have pain about the anterior shoulder. PRIOR: Patient works at [employer]. This is a worker's compensation injury. Patient states just over 1 month ago while on the job lifting a heavy part weighing approximately 30 lb he noted pain. This wason a Saturday and he attempted to ice, take ibuprofen over the weekend. He noted the following Saturdayhe was again lifting parts when he had an acute pain she had from his right anterior shoulder down into his biceps. He had difficulty raising his arm at that time and followed a injury. He was seen and evaluated at [facility] who referred him to physical therapy. He has now been completing physical therapy for the last month and has had improvements with range of motion and some pain although he does continue to have acute right shoulder pain with any out reached lifting activities. He also notes intermittent popping that initially was very painful but has somewhat improved as well. Primarily on theanterior shoulder radiates down into his biceps. He was referred here due to continued symptoms forevaluation and management. Currently working on restrictions of [...] scapular dyskinesia. Patient has tenderness about the bicipital groove Active elevation is 170??, externalrotation at the side 60??, internal rotation to T10. There is full passive range of motion. There is pain with elevation and resisted strength testing. There is no pain with resisted external rotation. There is [...] or apprehension. Distal neurovascular exam is normal. Mild scapular dyskinesis. The patient has a warm and well-perfused upper extremity with capillary refill less than 2 seconds.Sensation is intact to light touch in terminal nerve distributions. The patient has no palpable epitrochlear lymphadenopathy. Imaging: MRI: MRI of the right shoulder contrast obtained on 06/25/2025 personally reviewed. His rotator cuff looks entirely normal. There is no rotator cuff muscular atrophy. Long head of biceps tendon appears intact and well seated within the bicipital groove. No significant labral tears. Minimal AC joint arthrosis. No evidence of glenohumeral arthritis. Assessment/Plan Gus Dash is a 35-year-old male seen today following on-the-job right shoulder injury with findings consistent with biceps tendinitis. MRI of the right shoulder was obtained revealing intact rotator cuff and long head of the biceps tendon without any subluxation. Patient works at [employer]. This sia worker's compensation case. Discussion was had with the patient today regarding these findings. Recommendation was made for ultrasound-guided injection of the biceps tendon sheath to help with painand inflammation. Patient is amenable to this. We will also get patient into physical therapy to help with his overall shoulder mobility and range of motion and scapular stabilization. Referral placed. Continue current work restrictions until follow-up in 1 month. Work note provided today. Cosigned by Eleuterio Winston MD at 06/29/2025 4:58 PM EST Associated attestation - Eleuterio Winston MD - 06/29/2025 4:58 PM EST I saw and evaluated the patient with the resident/fellow. I discussed the case with the resident/fellow and agree with the findings and plan as documented. documented in this encounter Plan of Treatment Upcoming Encounters Date Type Department Care Team (Late st Contact Info) Description 08/12/2025 9:20 AM EST Office Visit [facility] [address] [facility], [address] [place] [address] Eleuterio Winston MD [address] [facility] [address] [place] [address] 10/11/2025 3:20 PM EST Office Visit [facility] & [address] [address] Ekaterina Tinoco MD [address] [place] [address] Scheduled Orders Name Type Priority Associated Diagnoses Orde r Schedule Sports Medicine - USG Injection, Medium Joint Procedures Routine Bicipital tendinitis, right shoulder Expected: 06/29/2025 (Approximate), Expires: 12/31/2026 Scheduled Referrals Name Type Priority Associated Diagnoses Orde r Schedule Physical Therapy (outgoing) Outpatient Referral Routine Bicipital tendinitis, right shoulder Dyskinesis of right scapula Expected: 06/29/2025 (Approximate), Expires: 12/31/2026 documented as of this encounter Visit Diagnoses Diagnosis Bicipital tendinitis, right shoulder- Primary Dyskinesis of right scapula documented in this encounter Additional Health Concerns Infection Onset Date Last Indicated Resolved Time 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
--- OUTSIDE RECORDS SUMMARY | 2025-07-14 08:15 | XMS_ITS | Encounter Summary ---
Author Organization [facility] Address [address] [place] [address] Care Team Providers Care Blast Furnace Helper Name Role Phone Ekaterina Tinoco MD Primary Care Provider [phone] Reason for Referral * Other Medical (Routine) - Pending Review Specialty Diagnoses / Procedures Referred By Contac t Referred To Contact Diagnoses Bicipital tendinitis, right shoulder Procedures Injection - Upper Extremity: R proximal biceps tendon sheath Leonarda Guerra MD [address] [facility] [address] [place] [address] Phone: tel: fax: Referral ID Status Reason Start Date Expiration Date V isits Requested Visits Authorized [id number] Pending Review 07/14/2025 01/13/2027 1 1 Reason for Visit * Reason Comments Injections * Other Medical (Routine) - Closed Specialty Diagnoses / Procedures Referred By Contac t Referred To Contact Sports Medicine Diagnoses Bicipital tendinitis, right shoulder Procedures Sports Medicine - USG Injection, Medium Joint Eleuterio Winston MD [address] [facility] [address] [place] [address] Phone: tel: fax: [facility] [address] [facility], [address] [place] [address] Phone: tel: fax: Referral ID Status Reason Start Date Expiration Date Visits Re quested Visits Authorized [id number] Closed 06/29/2025 12/29/2026 1 1 Encounter Details Date Type Department Care Team (Late st Contact Info) Description 07/14/2025 8:15 AM EST Procedure Visit [facility] [address], [address] [place] [address] Leonarda Guerra MD [address] [place] [address] Bicipital tendinitis, right shoulder (Primary Dx) Social History Tobacco Use Types Packs/Day Years [...] place to sleep or slept in a long-term (including now)? No 11/11/2023 PHQ-9 Answer Date [...] any time in the past 12 m [facility], were you homeless or living in a long-term (including now)? No 12/07/2024 Safety and Environment [...] Recorded In the past 12 months has e [employer], gas, oil, or water [employer] threatened to shut off services in your [...] Sign Reading Time Taken Comments Blood Pressure 127/83 07/14/2025 8:00 AM EST Pulse - - Temperature - - Respiratory Rate - - Oxygen Saturation - - Inhaled Oxygen Concentration - - Weight 161 kg (354 lb) 07/14/2025 8:00 AM EST Height 188 cm (6' 2 ) 07/14/2025 8:00 AM EST Body Mass Index 45.45 07/14/2025 8:00 AM EST documented in this encounter Plan of Treatment Upcoming Encounters Date Type Department Care Team (Late st Contact Info) Description 08/12/2025 9:20 AM EST Office Visit [facility] [address] [facility], [address] [place] [address] Eleuterio Winston MD [address] [facility] [address] [place] [address] 10/11/2025 3:20 PM EST Office Visit [facility] [address] [place] [address] Ekaterina Tinoco MD [address] [place] [address] Pending Results Name Type Priority Associated Diagnoses Date /Time Injection - Upper Extremity: R proximal biceps tendon sheath Procedures Routine Bicipital tendinitis, right shoulder 07/14/2025 8:15 AM EST documented as of this encounter Procedures Procedure Name Priority Date/Time Associated Diagnosis Comments HAND/UPPER EXTREMITY INJECTION/ARTHROCENTES IS Routine 07/14/2025 8:15 AM EST Bicipital tendinitis, right shoulder documented in this encounter Visit Diagnoses Diagnosis Bicipital tendinitis, right shoulder- Primary documented in this encounter Administered Medications Inactive Administered Medications - up to 3 most recent administrations Medication Order MAR Action Action Date Dose Rate Site lidocaine (Xylocaine) 1 % injection 10 mg 10 mg, Intra-articular, Once PRN Procedure, 1 dose, Starting on Sat07/14/25 at 0815, Until Sat07/14/25 at 08, RoutineIndications:Bicipital tendinitis, right shoulder Given 07/14/2025 8:15 AM EST 10 mg methylPREDNISolone acetate (DEPO-Medrol) injection 40 mg 40 mg, Intra-articular, Once PRN Procedure, 1 dose, Starting on Sat07/14/25 at 0815, Until Sat07/14/25 at 0815, RoutineIndications:Bicipital tendinitis, right shoulder Given 07/14/2025 8:15 AM EST 40 mg ropivacaine (Naropin) injection 1 mL 1 mL, Injection, Once PRN Procedure, 1 dose, Starting on Sat07/14/25 at 0815, Until Sat07/14/25 at 0815, RoutineIndications:Bicipital tendinitis, right shoulder Given 07/14/2025 8:15 AM EST 1 mL documented in this encounter Additional Health Concerns Infection Onset Date Last Indicated Resolved Time 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
--- NOTE | 2025-07-18 15:33 | ED_ITS ---
<Statement entered by Julio César Grzegorz, DO - 07/18/25 23:26> I was consulted by the NATHANIEL, and we discussed the complexity of problems being addressed. I approved the treatment and management plan for this patient's care in the emergency department, thus performing a substantive portion of the medical decision making. Julio César Lantigua DO This patient came in with flank pain and ended up being diagnosed with a 7 mm ureterovesicular junction stone. He has bacteria in his urine, as well as some white blood cells, but there is no leukocyte esterase or nitrates. Therefore I do not feel this is an infected stone. Given that this stone has progressed throughout the entirety of the ureter and is at the ureterovesicular junction I do feel there is a high likelihood of it passing, despite its size. We ultimately to the patient home with Toradol, Flomax, and oxycodone for breakthrough pain. He has established care with a urologist we will have him follow-up with them in the event that he becomes unable to pass the stone. He acknowledged understanding and he was discharged home Discharge Plan Disposition Patient Disposition: Home, Self-Care Condition: Good Prescriptions Prescriptions: New ketorolac 10 mg tablet 10 mg PO Q6H PRN (Reason: pain) 5 Days Qty: 20 0RF tamsulosin [Flomax] 0.4 mg capsule 0.4 mg PO Q24H Qty: 5 0RF ondansetron 4 mg tablet,disintegrating 4 mg PO Q6H PRN (Reason: nausea and vomiting) Qty: 20 0RF oxycodone 5 mg tablet 5 mg PO Q8H Qty: 12 0RF No Action mupirocin 2 % ointment 1 applic topical TID Qty: 22 0RF Rx Instructions: apply to skin around fingernail as directed penicillin V potassium 500 mg tablet 500 mg PO BID 10 Days Qty: 20 0RF azithromycin [Zithromax Z-Edgar] 250 mg tablet See Rx Instructions PO .COMPLEX Qty: 6 0RF Rx Instructions: For 250 mg dose pack: take 500 mg today (day 1), then 250 mg for 4 days (days 2-5) PO prednisone 20 mg tablet 20 mg PO BID Qty: 10 0RF guaifenesin 1,200 mg tablet extended release 12hr 1,200 mg PO BID Qty: 30 0RF losartan 50 mg tablet 50 mg PO DAILY Patient Comments: TAKE 1 TABLET BY MOUTH ONCE DAILY chlorthalidone 25 mg tablet 25 mg PO DAILY Patient Comments: TAKE 1 TABLET BY MOUTH ONCE DAILY allopurinol 100 mg tablet 100 mg PO DAILY Patient Comments: TAKE 1 TABLET BY MOUTH ONCE DAILY Zepbound 10 mg/0.5 mL pen injector 10 mg SQ DAILY Patient Comments: INJECT 10 MG (0.5 ML) SUBCUTANEOUSLY ONCE A WEEK albuterol sulfate 90 mcg/actuation HFA aerosol inhaler 2 puff inhalation Q6H PRN (Reason: shortness of breath or wheezing) Qty: 8.5 0RF Referrals Follow up/Referrals: Ekaterina Tinoco [Primary Care Provider, Medical] - See instructions Activity Restrictions/Add. Instructions Additional Instructions/Restrictions: You were evaluated on an emergency basis. It is very important that you follow- up with your primary care provider and any specialist who we discussed within the next 2 days in order to better assess your health more comprehensively. For example, incidental findings on imaging or laboratory results that were performed today may be discovered, which do not require immediate medical care, but may impact your health in the future. If your symptoms worsen or persist, please return to the emergency department immediately for reassessment. Take all medications as prescribed. In queue for allowing me to participate in your health care, and I hope you feel better soon. Clinical Impressions Clinical Impression: Kidney stone on right side Instructions Patient Instructions: DI for Kidney Stones Print Language Print Language: Qatari Discharge ED Provider: Julio César Lantigua Adult HPI General Chief complaint: Urogenital-Male Stated complaint: Back pain, painful urination Time Seen by Provider: 07/18/25 15:37 History of Present Illness HPI narrative: 35-year-old male with a history of kidney stones presents to the emergency department with complaints of painful urination with right sided abdominal and flank pain for the past couple days. He reports he has taken Azo without relief of symptoms. He denies fevers, nausea, vomiting, diarrhea, hematuria. Related Data Home Medications ?Medication ?Instructions ?Recorded ?Confirmed allopurinol 100 mg tablet 100 mg PO DAILY 08/20/24 chlorthalidone 25 mg tablet 25 mg PO DAILY 08/20/24 losartan 50 mg tablet 50 mg PO DAILY 08/20/2404/26 tirzepatide (weight loss) 10 10 mg SQ DAILY 08/20/24 0 05/11/25 mg/0.5 mL subcutaneous pen injector (Zepbound) Previous Rx's ?Medication ?Instructions ?Recorded albuterol sulfate 90 mcg/actuation 2 puff inhalation Q 6H PRN 08/20/24 aerosol inhaler shortness of breath or wheez ing #8.5 grams mupirocin 2 % topical ointment 1 applic topical TID #2 2 grams 12/09/24 penicillin V potassium 500 mg 500 mg PO BID 10 days #2 0 tabs 02/08/25 tablet azithromycin 250 mg tablet See Rx Instructions PO .COM PLEX #6 05/11/25 (Zithromax Z-Edgar) tabs guaifenesin 1,200 mg tablet, 1,200 mg PO BID #30 tabs 05/11/25 extended release 12 hr prednisone 20 mg tablet 20 mg PO BID #10 tabs ketorolac 10 mg tablet 10 mg PO Q6H PRN pain 5 days #20 07/18/25 tabs ondansetron 4 mg disintegrating 4 mg PO Q6H PRN nausea and 07/18/25 tablet vomiting #20 tabs oxycodone 5 mg tablet 5 mg PO Q8H #12 tabs 5 tamsulosin 0.4 mg capsule (Flomax) 0.4 mg PO Q24H #5 c aps 07/18/25 Allergies Allergy/AdvReac Type Severity Reaction Status Date / Time No Known Allergies Allergy Verified 02/08/25 15:15 [facility] Disclaimer: The information contained in this section may have been updated after the patient was seen, as this information can be updated by other users. Medical History Strep throat Paronychia Hypertension Kidney stone Surgical History History of umbilical hernia repair History of back surgery History of colonoscopy Family History Other No significant family history Social History Smoking Status: Current every day smoker tobacco type: cigarettes packs per day: 1 alcohol intake: never substance use type: denies use current occupational status: employed Travel in the last 8 weeks?: None household members: spouse housing: house caffeine: Yes Have you lived/traveled outside US in past 30 days?: No Contact w/someone who lives/traveled outside US past 30 days?: No Exposure to someone with infectious disease in past 14 days?: No Do you have a fever (greater than 100.4 F or 38 C)?: No Have you tested positive for COVID-19?: No Exposed to someone with COVID-19 in past 14 days?: No Do you have a sore throat?: No Do you have a cough?: No Do you have any weakness?: No Do you have any diarrhea?: No Are you experiencing any unusual bleeding?: No Do you have any muscle aches/pain?: No Do you have any abdominal pain?: No Are you experiencing loss of taste or smell?: No Other Medical History Have you received the Flu Vaccine for this season: No Have you received the Pneumonia Vaccine: No ROS Obtained: Yes other Gastrointestinal Gastrointestingal: Reports abdominal pain Genitourinary Male Genitourinary: Reports difficulty urinating and Reports flank pain Physical Exam Narrative Physical exam: General: Awake, aware, appears uncomfortable HEENT: Normocephalic, no evidence of trauma CV: RRR, no murmurs, rubs, or gallops Pulm: CTA bilaterally with no rhonchi, rales, wheezes ABD: Tenderness on palpation of right lower quadrant as well as right CVA tenderness on palpation. Psych, appropriate mood and affect General General appearance: alert Respiratory Respiratory exam: Present normal lung sounds bilaterally Cardiovascular Cardiovascular exam: Present regular rate Neurological Exam Neurological exam: Present alert Medical Decision Making Medical Records Screening: Per USPSTF and CDC recommendations, given the prevalence of disease in our region, it is our hospital?s policy to screen for HIV and viral Hepatitis for all patients aged 18 and over and those with ongoing risk factors. Arian Inquiry Pt receiving controlled substance: Yes Arian was queried for this patient: Yes Risks and benefits of using a controlled substance: were discussed with pt by me Vital Signs: 07/18/25 15:38 07/18/25 16:47 07/18/25 17:00 Temperature 98.3 F Temperature Source Oral Pulse Rate 95 H 91 H Pulse Rate [Right Radial] 114 H Respiratory Rate 18 Blood Pressure 136/88 141/87 H Blood Pressure [Right Arm] 151/96 H Blood Pressure Mean [Right Arm] 114 Blood Pressure Source [Right Arm] Automatic Cuff Blood Pressure Position [Right Arm] Sitting 02 Sat by Pulse Oximetry 100 98 96 Oxygen Delivery Method Room Air Room Air Room Air Lab Data Lab Results 07/18/25 15:40: WBC 8.6, RBC 6.35 H, Hgb 17.8, Hct 52.4 H, MCV 82.5, MCH 28.0, MCHC 34.0, RDW 14.6, Plt Count 249, MPV 8.6, Neut % (Auto) 65.0, Lymph % (Auto) 21.6, Archuleta % (Auto) 11.0 H, Eos % (Auto) 1.2, Baso % (Auto) 0.7, Neut # (Auto) 5.6, Lymph # (Auto) 1.9, [place] # (Auto) 1.0, Eos # (Auto) 0.1, Baso # (Auto) 0.1, Sodium 134 L, Potassium 4.2, Chloride 99, Carbon Dioxide 29, Anion Gap 10.2, BUN 13, Creatinine 0.90, Estimated Creat Clear 133, Estimated GFR 96, Est GFR ( Amer) 116, Glucose 107 H, Calcium 9.6, Total Bilirubin 0.9, AST 38, ALT 43, Alkaline Phosphatase 56, Total Protein 7.8, Albumin 5.0, Globulin 2.8, Albumin/Globulin Ratio 1.8 07/18/25 15:45: Urine Color Yellow, Urine Appearance Sl cloudy, Urine pH 6.0, Ur Specific [place] >= 1.030, Urine Protein Trace, Urine Glucose (UA) Negative, Urine Ketones Trace, Urine Blood 3+ A, Urine Nitrate Negative, Urine Bilirubin Negative, Urine Urobilinogen 0.2, Ur Leukocyte Esterase Negative, Urine RBC Tntc, Urine WBC 5-10, Ur Squamous Epith Cells 3-5, Urine Bacteria 2+, Urine Mucus 4+ 07/18/25 15:40 07/18/25 15:40 Orders (Tests/Meds): ED MEDICATIONS Discontinued Medications Generic Name Dose Route Start Last Admin Trade Name Freq PRN Reason Stop Dose Admin Hydromorphone HCl 1 mg 07/18/25 16:07 07/18/25 16:12 Hydromorphone 2mg/Ml Syringe IV 07/18/25 16:08 1 mg ONCE ONE Administration Sodium Chloride 1,000 mls @ 999 mls/hr 07/18/25 15:34 07/18/25 15:49 Sod Chlor 0.9% 1000ml Bag IV 07/18/25 16:34 999 mls/hr .Q1H1M ONE Administration Ketorolac Tromethamine 15 mg 07/18/25 15:34 07/18/25 15:49 Ketorolac 15mg/Ml Vial IV 07/18/25 15:35 15 mg ONCE ONE Administration Ondansetron HCl 4 mg 07/18/25 15:34 07/18/25 15:49 Ondansetron 4mg/2ml Vial IV 07/18/25 15:35 4 mg ONCE ONE Administration Oxycodone/Acetaminophen 1 each 07/18/25 17:14 07/18/25 17:25 Oxycodone 5mg W/Apap 325mg Tablet PO 07/18/25 17:15 1 each ONCE ONE Administration ORDERS Category Date Time Status CT abdomen pelvis wo con Stat Cat Scan 07/18/25 15:34 Completed CBC w/Auto Diff [Complete Blood Count Auto Diff] Stat Lab 07/18/25 15:40 Completed CMP [Comprehensive Metabolic Panel] Stat Lab 07/18/25 15:40 Completed Urinalysis and Microscopic Stat Lab 07/18/25 15:45 Completed Urine Culture Stat Micro 07/18/25 15:45 Received Medical Decision Narrative: Initial impression of presenting illness: 35-year-old male presents the emergency department complaints of right lower quadrant pain, dysuria, right flank pain for the past couple of days. He reports he has a history of kidney stones. He denies fever, nausea, diarrhea, hematuria. He reports he has taken Azo without relief of symptoms. Differential diagnosis includes but is not limited to: Kidney stone, pyelonephritis, urinary tract infection, Patient arrives hemodynamically stable, afebrile, without respiratory distress with vital signs interpreted by myself. Initial physical exam reveals tenderness to palpation of right lower quadrant of abdomen as well as right flank pain. Rest of exam is unremarkable. Initial diagnostic plan: Laboratory studies including urinalysis, CT of abdomen pelvis without contrast, normal saline bolus for hydration, Toradol for pain control. Upon arrival patient is requesting Dilaudid for pain control vies patient that we will start with Toradol and can give additional medications as needed. Results from initial plan were reviewed and interpreted by myself, pertinent positives include: CT scan of abdomen pelvis without contrast shows a 7 mm right distal ureter stone at the UVJ with mild hydroureteronephrosis. Patient's laboratory studies were nonactionable. Urinalysis positive for red blood cells, white blood cells as well as some bacteria but no other indicators of urinary tract infection at this time. Interventions in the ED: Patient was given normal saline bolus for hydration as well as Toradol Dilaudid for pain control. Patient was also given a dose of Percocet just prior to discharge for pain control. Patient was made aware of the results and the findings, upon reevaluation patient has remained stable throughout stay, symptoms have improved. Upon reevaluation patient appears to be resting more comfortably. He is tolerating ice chips without difficulty. Disposition: Reviewed findings today's workup with patient informed him that he does have a 7 mm right stone. Advised patient that we will treat with Zofran for nausea, Toradol and Percocet for pain control as well as Flomax. Recommended patient contact his urologist tomorrow morning to schedule close outpatient follow-up. Instructed him to increase his fluids for the next several days. Advised him to return immediately to the emergency department if he develops worsening pain, inability to tolerate p.o., fevers. patient was agreeable to plan of care. Patient made aware of findings and had a detailed discussion with symptomatic care and return precautions, patient voiced understanding. Critical Care Critical Care Time Critical Care Time: No
--- NOTE | 2025-07-18 15:34 | CT_ITS ---
PROCEDURE INFORMATION: Exam: CT Abdomen And Pelvis Without Contrast Exam date and time: 07/18/2025 3:54 PM Age: 35 years old Clinical indication: Abdominal pain; Flank; Right; Additional info: Flank pain, history of kidney stones TECHNIQUE: Imaging protocol: Computed tomography of the abdomen and pelvis without contrast. Radiation optimization: All CT scans at this facility use at least one of these dose optimization techniques: automated exposure control; mA and/or kV adjustment per patient size (includes targeted exams where dose is matched to clinical indication); or iterative reconstruction. COMPARISON: CT ABDOMEN PELVIS WO CON 07/27/2024 11:36 AM FINDINGS: Limitations: Lack of intravenous contrast material limits sensitivity in detection and/or characterization of intra-abdominal pathology. Heart: Multiple tortuous superficial venous varices in the right upper thigh suggestive of chronic venous valvular insufficiency or obstruction. Liver: Fatty liver. Hepatomegaly, measuring 22 cm in craniocaudal axis. Gallbladder and biliary ducts: Unremarkable. Pancreas: Unremarkable. Spleen: No splenomegaly. Adrenal glands: Unremarkable. Kidneys and ureters: Renal calculus (7 mm) in the distal right ureter at the ureterovesical junction associated with mild right hydroureteronephrosis. Bilateral kidneys contain a few additional punctate (1-3 mm) non-obstructing stones. No left hydronephrosis. Stomach and bowel: Unremarkable. Appendix: No evidence of appendicitis. Intraperitoneal space: No free fluid. No pneumoperitoneum. Vasculature: Unremarkable. Lymph nodes: Unremarkable. Urinary bladder: Unremarkable. Reproductive: Unremarkable. Bones/joints: Multi-level bridging or beaked disc osteophytes in the lower thoracic spine compatible with diffuse idiopathic skeletal hyperostosis (DISH). No acute osseous abnormality Soft tissues: Unremarkable. IMPRESSION: 1. Renal calculus (7 mm) in the distal right ureter at the ureterovesical junction associated with mild right hydroureteronephrosis. 2. Bilateral kidneys contain a few additional punctate (1-3 mm) non-obstructing stones. 3. Fatty liver and hepatomegaly. 4. Multiple tortuous superficial venous varices in the right upper thigh suggestive of chronic venous valvular insufficiency or obstruction. 5. Diffuse idiopathic skeletal hyperostosis (DISH) in the lower thoracic spine.
[2025-07-18 15:38] VITALS: BP 151/96; PULSE 114; RESP 18; TEMP 36.8; O2SAT 100; BMI 46.2
[2025-07-18] MEDS: 0.9 % SODIUM CHLORIDE 1000ML 1,000 ML 999 ML IV (15:49)
[2025-07-18] MEDS: KETOROLAC 15MG/ML VIAL 15 MG IV (15:49)
[2025-07-18] MEDS: ONDANSETRON 4MG/2ML VIAL 4 MG IV (15:49)
--- OUTSIDE RECORDS SUMMARY | 2025-07-18 15:50 | XMS_ITS | Clinical Summary ---
Author Organization [facility] , [facility] Address [address] [place] [address] Phone Care Team Providers Care Geodetic Technician Name Role Phone HERIBERTO SAN Unavailable [phone] Marcio ALFRED, Stanislav Pittman Unavailable [phone] Reason for Visit and Chief Complaint The Chief Complaint is: Low Back Pain Problems Includes: Problems addressed during this encounter and other active Problems All Visits Onset Date Resolved Date Provider Condition S tatus Soft Tissue Hip Pain Radiating 05/12/2019 Stanislav Buckley MD Active Last Documented On 9 2:35PM ; [facility], [facility] Plan of Treatment Patient was seen [...] - Last Documented On 01/07/2023 12:40PM ; [facility], [facility] Instructions to patient Instructions for patient See PCP for weight loss Last Documented On 3 8:34AM ; [facility], [facility] Lose weight Last Documented On 3 8:45AM ; [facility], [facility] Assessments Includes: Assessments from this encounter Findings Right L5-S1 decompression November 06, 2019 - Last Documented On 01/07/2023 12:40PM ; [facility], [facility] Instructions Includes: Instructions from this encounter Instructions to patient Instructions for patient See PCP for weight loss Last Documented On 3 8:34AM ; [facility], [facility] Lose weight Last Documented On 3 8:45AM ; [facility], [facility] Medical Equipment - Implanted Devices Includes: Current Devices No Medical Equipment Recorded Medications Includes: Medications discussed during this encounter and other current Medications Current Medications (continue as prescribed) Allopurinol 100 MG Oral Tablet 06/22/2019 Provider: Diagnosis: Last Documented On 9 2:53PM By Sammy Hurt ; [facility], [facility] Lisinopril 10 MG Oral Tablet 05/30/2019 Provider: KENNEDY LYN Diagnosis: Last Documented On 9 2:53PM By Sammy Hurt ; [facility], [facility] Past Medications on file Percocet 5-325 MG OR TABS 11/04/2019 - 11/19/2019 Prov ider: Lauri Salazar MD Diagnosis: prn pain Last Documented On 0 2:39PM By Vicki Johnson ; [facility], [facility] Protonix 40 MG Oral Tablet Delayed Release 07/14/2019 - 08/13/2019 Provider: Stanislav Buckley MD Diagnosis: once a day Last Documented On 9 12:06PM By Sammy Hurt ; [facility] Ibuprofen 600 MG Oral Tablet 07/14/2019 - 08/13/2019 P jose: Stanislav Buckley MD Diagnosis: Take 1 tablet every 8 hrs prn pain Last Documented On 9 12:08PM By Sammy Hurt ; [facility], [facility] Medrol 4 MG Oral Tablet Ther apy Pack 06/24/2019 - 07/24/2019 Provider: Stanislav Buckley MD Diagnosis: take as directed by medrol dose pack Last Documented On 9 3:45PM By Sammy Hurt ; [facility], [facility] Medications Administered Includes: Administered Medications from this encounter No Administered Medications Recorded Vital Signs Includes: Vital Signs from this encounter Vital Name 01/07/2023 08:45A Height (in) 73 Weight (lb) 418 Body Mass Index 55.1 Body Surface Area 2.9 Note: mg Last Documented: On 01/07/2023 8:45AM ; [facility], [facility] Results Includes: Results discussed during this [...] 01/07/2023 Last Documented On 3 12:40PM ; [facility] Caffeine use 01/07/2023 Last Documented On 3 12:40PM ; [facility] No recent change in diet 01/07/2023 Last Documented On 3 12:40PM ; [facility] Yes, current smoker. 01/07/2023 Last Documented On 3 12:40PM ; [facility] No recent change in diet 09/03/2019 Last Documented On 3 8:34AM ; [facility] No tobacco use 09/03/2019 Last Documented On 3 8:34AM ; [facility] Not a current smoker quit 2 years ago Last Documented On 3 8:34AM ; [facility] Not exercising regularly 09/03/2019 Last Documented On 3 8:34AM ; [facility] Not using alcohol 09/03/2019 Last Documented On 3 8:34AM ; [facility] Not using drugs 09/03/2019 Last Documented On 3 8:34AM ; [facility] Smoking status : Former smoker quit 2 ye ars ago 09/03/2019 Last Documented On 3 8:34AM ; [facility], [facility] Procedures and Surgical History Includes: Procedures from this encounter Procedures Code Diagnosis Performing Provider Service L ocation Service Date use of tobacco assessment performed 1000F Last Documented On 3 8:45AM ; [facility] an X-ray was performed 95843 Last Documented On 3 8:44AM ; [facility] an MRI was performed [id number] Last Documented On 3 8:44AM ; [facility] Medical History Includes: Medical History addressed during this encounter Description Last Updated History of Hypertension 01/07/2023 Last Documented On 3 12:40PM ; [facility] kidney stent and GI scope 09/03/2019 Last Documented On 3 8:34AM ; [facility] Intermittent hypertension 09/03/2019 Last Documented On 3 8:34AM ; [facility] Family History Includes: Family History addressed during this encounter Description Last Updated Diabetes mellitus 01/07/2023 Last Documented On 3 12:40PM ; [facility] Family history of cancer 01/07/2023 Last Documented On 3 12:40PM ; [facility] Family history of diabetes mellitus 04/2020 Last Documented On 3 8:34AM ; [facility] Review of Systems Includes: Review [...] Time Diagnosis Follow Up Jimy Sheikh PA-C [facility] 3 8:30AM 8:59AM Insurance Includes: Active Insurance Policies Plan Name Member ID Group # Subscriber Relationship Effect [place] Dates 1 [id number] MATTHEW RODRIGUEZ Self 08/26/2019 - Unknown Clinical Notes Includes: Clinical Notes from this encounter * Progress note Date Encounter Last Documented by 01/07/2023 Follow Up Last documented on 01/07/2023; 12:40 PM, Jimy Crook; [facility] Active Problems & Conditions - [...] performed. Care Team - HERIBERTO SAN - FERRYBOAT DECKHAND
--- OUTSIDE RECORDS SUMMARY | 2025-07-18 15:50 | XMS_ITS ---
Care Plan - [facility], [facility] Created on: July 18, 2025 JENNIFER MATTHEW : 1990 Sex: Male Author Organization [facility], [facility] Address [address] [place] [phone] Phone Care Team Providers Care Envelope Sealer Name Role Phone HERIBERTO SAN Unavailable [phone] Marcio ALFRED, Stanislav Pittman Unavailable [phone]
--- OUTSIDE RECORDS SUMMARY | 2025-07-18 15:50 | XMS_ITS | Encounter Summary ---
Author Organization [facility] Address [address] [place] [address] Care Team Providers Care Pullman Car Clerk Name Role Phone Ekaterina Tinoco MD Primary Care Provider [phone] Encounter Details Date Type Department Care Team (Latest Contact Info) Description 06/25/2025 Travel Social History Tobacco Use Types Packs/Day Years [...] place to sleep or slept in a senior care (including now)? No 11/11/2023 PHQ-9 Answer Date [...] any time in the past 12 m [facility], were you homeless or living in a senior care (including now)? No 12/07/2024 Safety and Environment [...] the past 12 months has th e electric, gas, oil, or water company threatened to shut off services in your home? No 12/07/2024 PHQ-2A Answer Date Recorded Patient Health Questionnaire-2 Score 0 07/01/2023 Sex and Gender Information Value Date Recorded Sex Assigned at Not on file Legal Sex Male 6:22 PM EDT Gender Identity Not on file Sexual Orientation Not on file documented as of this encounter Plan of Treatment Upcoming Encounters Date Type Department Care Team (Late st Contact Info) Description 08/12/2025 9:20 AM EST Office Visit [facility] Orthopaedic Surgery & Sports Medicine [address], [address] [place] [address] Eleuterio Winston MD [address] [facility] [address] [place] [address] 10/11/2025 3:20 PM EST Office Visit [facility] [address] [place] [address] Ekaterina Tinoco MD [address] [place] [address] documented as of this encounter Visit Diagnoses Not on filedocumented in this encounter Additional Health Concerns Infection [...] documented as of this encounter Care Teams Pullman Car Clerk Relationship Specialty Start Date End Date Ekaterina Tinoco MD [address] [place] [address] PCP - General Family Medicine 12/06/23 documented as of this encounter
--- OUTSIDE RECORDS SUMMARY | 2025-07-18 15:50 | XMS_ITS | Encounter Summary ---
Author Organization Healthcare Address [address] [place] [address] Care Team Providers Care Router Setter Name Role Phone Ektaerina Tinoco MD Primary Care Provider [phone] Encounter Details Date Type Department Care Team (Late st Contact Info) Description 07/14/2025 Orders Only External Location [address] [place] [address] Provider, External Social History Tobacco Use Types Packs/Day Years [...] place to sleep or slept in a chcf (including now)? No 11/11/2023 PHQ-9 Answer Date [...] were you homeless or living in a chcf (including now)? No 12/07/2024 Safety and Environment [...] Description 08/12/2025 9:20 AM EST Office Visit [facility] Orthopaedic Surgery & Sports Medicine [address], [address] [place] [address] Eleuterio Winston MD [address] [place] [address] 10/11/2025 3:20 PM EST Office Visit [facility] [address] [place] [address] Ekaterina Tinoco MD [address] [place] [address] documented as of this encounter Procedures Procedure Name Priority Date/Time Associated Diagnosis Comments POC ULTRASOUND 07/14/2025 documented in this encounter Results * POC Imaging (07/14/2025) Anatomical Region Laterality Modality Pelvis Other 07/14/2025 us External Provider IMG POINT OF CARE ULTRASOUND F inal Result documented in this encounter Visit Diagnoses Not on filedocumented [...] documented as of this encounter Care Teams Router Setter Relationship Specialty Start Date End Date Ekaterina Tinoco MD [address] [place] [address] PCP - General Family Medicine 12/06/23 documented as of this encounter
--- OUTSIDE RECORDS SUMMARY | 2025-07-18 15:50 | XMS_ITS | Encounter Summary ---
Author Organization [facility] Address [address] [place] [address] Care Team Providers Care Sales Driver Name Role Phone Ekaterina Tinoco MD Primary Care Provider [phone] Encounter Details Date Type Department Care Team (Latest Contact Info) Description 06/10/2025 Travel Social History Tobacco Use Types Packs/Day [...] any time in the past 12 m [facility], were you homeless or living in a [...] Description 08/12/2025 9:20 AM EST Office Visit [facility] Orthopaedic Surgery & Sports Medicine [address], [address] [place] [address] Eleuterio Winston MD [address] [facility] [address] [place] [address] 10/11/2025 3:20 PM EST Office Visit [facility] [address] [place] [address] Ekaterina Tinoco MD [address] [place] [address] documented as of this encounter [...] documented as of this encounter Care Teams Sales Driver Relationship Specialty Start Date End Date Ekaterina Tinoco MD [address] [place] [address] PCP - General Family Medicine 12/06/23 documented as of this encounter
--- OUTSIDE RECORDS SUMMARY | 2025-07-18 15:50 | XMS_ITS | Encounter Summary ---
Author Organization [facility] Address [address] [place] [address] Phone [email or web address] Care Team Providers Care Library Circulation Department Chief Name Role Phone Ekaterina Tinoco MD Primary Care Provider [phone] Encounter Details Date Type Department Care Team (Late st Contact Info) Description 06/11/[address] [place] [address] Payton Alas RN [address] [place] [address] Social History Tobacco Use Types Packs/Day Years Used Date Smoking Tobacco: Former Cigarettes 1 10/22/2023 - 09/09/2009 Smokeless Tobacco: Never Intimate Partner Violence Answer Date R ecorded Insults You Not on file 12/06/2020 Threatens You Not on file 12/06/2020 Screams at You Not on file 12/06/2020 Physically Hurt Not on file 12/06/2020 Intimate Partner Violence Score Not on file 12/06/2020 Depression Answer Date Recorded PHQ Total Score 0 06/09/2022 Stress Answer Date Recorded Stress in your Life Not on file 06/28/2024 Dealing with Stress 3 06/28/2024 Sex and Gender Information Value Date Recorded Sex Assigned at Not on file Legal Sex Male 8:36 AM CDT Gender Identity Not on file Sexual Orientation Not on file documented as of this encounter Miscellaneous Notes * Telephone Encounter - Payton Alas RN - 06/11/2025 6:45 AM EDT TM called states he got 3 options today so he left and would like to be rescheduled for Saturday. TM states when he saw they ordered an MRI and put PT on hold until MRI results come back. TM states his MRI is scheduled for 06/25 and his follow up with is on 06/29. TM states he already spoke with adjustor regarding approval. REJI RN documented in this encounter Plan of Treatment Upcoming Encounters Date Type Department Care Team (Late st Contact Info) Description 07/19/2025 1:30 PM EST Occ Treatment [facility] / [address] [place] [address] Hilotn Fiore, PT [address] [place] [address] 07/20/2025 1:30 PM EST Occ Treatment [facility] WC/ [address] [place] [address] Hilton Fiore, PT [address] [place] [address] 08/13/2025 11:30 AM EST Occ Office Visit [facility] Line Side Nursing Power Train [address] [facility] [place] [address] Leonarda Henry PA [address] [place] [address] documented as of this encounter Visit Diagnoses Not on filedocumented in this encounter Care Teams Library Circulation Department Chief Relationship Specialty Start Date End Date Ekaterina Tinoco MD [address] [place] [address] PCP - General Photographer Assistant 01/06/20 documented as of this encounter
--- OUTSIDE RECORDS SUMMARY | 2025-07-18 15:50 | XMS_ITS | Encounter Summary ---
Author Organization [facility] Address [address] [place] [address] Phone [email or web address] Care Team Providers Care Christian Science Healer Name Role Phone Ekaterina Tinoco MD Primary Care Provider [phone] Encounter Details Date Type Department Care Team (Late st Contact Info) Description 06/08/[address] [place] [address] Payton Alas RN [address] [place] [address] Social History Tobacco Use Types [...] Telephone Encounter - Payton Alas RN - 06/08/2025 8:34 AM EDT Patient called stating that reached out to him regarding his appointment on 06/10 stating that they need a letter of approval from prior to appointment or they will be running the appointment under his own insurance. [facility] has received claim#. RN messagejason Youssef regarding [facility]'s request. TM advised he should reach out to adjustor as well and if we cannot get a letter prior to appointment we may have to reschedule until we get response from adjustor unless he wants to go through personal insurance. REJI RN documented in this encounter Plan of Treatment Upcoming Encounters Date Type Department Care Team (Late st Contact Info) Description 07/19/2025 1:30 PM EST Occ Treatment [facility] PT / [address] [place] [address] Hilton Fiore, PT [address] [place] [address] 07/20/2025 1:30 PM EST Occ Treatment [facility] PT / [address] [place] [address] Hilton Fiore, PT [address] [place] [address] 08/13/2025 11:30 AM EST Occ Office Visit [facility] Line Side Nursing Power Train [address] [place] [address] Leonarda Henry, RADHA [address] [place] [address] documented as of this encounter Visit Diagnoses Not on filedocumented in this encounter Care Teams Christian Science Healer Relationship Specialty Start Date End Date Ekaterina Tinoco MD [address] [place] [address] PCP - General Scheduling Agent 01/06/20 documented as of this encounter
--- OUTSIDE RECORDS SUMMARY | 2025-07-18 15:50 | XMS_ITS | Continuity of Care Document ---
Author Organization [facility] Leopoldo ramos [facility] Address [address] [place] [address] [address] [place] [address] Care Team Providers Care Packaging Engineer Name Role Phone LYN KENNEDY Referring Provider Assessment No assessment recorded. Plan of Treatment Reminders Order Date Submit Date Provider Last Modified By Organization Details Last Modified Time Details Appointments RECHECK 2025 04:00P M MEENU MAIER MD Not available Not available Not available Lab urinalysi s panel, auto [email or web address] [place] [address] [facility], [address] [place] [address], [address], [place], [address], 05/18/2025 07:04:43 Referral None recorded. Procedures None recorded. Surgeries None recorded. Imaging None recorded. Medication Orders Xyosted 100 mg/0.5 mL subcutane ous auto-inje ctor 2024 025 [facility], [address], [place], [address], 05/18/2025 07:04:56 Patient TargetsNo targets recorded. Patient InstructionsNo instructions recorded. Reason for Referral None Reported. Results Created Date Observation Date Name Description Value Unit Range Abnormal Flag Note LastModifiedBy Organization Detail LastModifiedTime 05/17/2005/17/2025 urina lysis panel , auto Unknown Analyte Clean Catch Not Available [facility] [address], [place], [address], 05/17/2025 15:56:43 05/17/20 25 05/17/2025 urina lysis panel , auto Unknown Analyte Yellow Not Available [facility] [address], [address], 05/17/2025 15:56:43 05/17/20 25 05/17/2025 urina lysis panel , auto Unknown Analyte Clear Not Available [facility] [address], [place], [address], 05/17/2025 15:56:43 05/17/20 25 05/17/2025 urina lysis panel , auto Unknown Analyte 1.025 Not Available [facility] [address], [place], [address], 05/17/2025 15:56:43 05/17/20 25 05/17/2025 urina lysis panel , auto Unknown Analyte 1.003 - 1.030 Not Available [facility] [address], [place], [address], 05/17/2025 15:56:43 05/17/20 25 05/17/2025 urina lysis panel , auto Unknown Analyte 5.0 Not Available [facility] [address], [address], 05/17/2025 15:56:43 05/17/20 25 05/17/2025 urina lysis panel , auto Unknown Analyte 5.0 - 8.0 Not Available [facility] [address], [place], [address], 05/17/2025 15:56:43 05/17/20 25 05/17/2025 urina lysis panel , auto Unknown Analyte Negati ve Not Available [facility] [address], [place], [address], 05/17/2025 15:56:43 05/17/20 25 05/17/2025 urina lysis panel , auto Unknown Analyte Negati ve Not Available [facility] [address], [place], [address], 05/17/2025 15:56:43 05/17/20 25 05/17/2025 urina lysis panel , auto Unknown Analyte Negati ve Not Available [facility] [address], [place], [address], 05/17/2025 15:56:43 05/17/20 25 05/17/2025 urina lysis panel , auto Unknown Analyte Negati ve Not Available [facility] [address], [place], [address], 05/17/2025 15:56:43 05/17/20 25 05/17/2025 urina lysis panel , auto Unknown Analyte Negati ve Not Available [facility] [address], [place], [address], 05/17/2025 15:56:43 05/17/20 25 05/17/2025 urina lysis panel , auto Unknown Analyte Negati ve Not Available [facility] [address], [place], [address], 05/17/2025 15:56:43 05/17/20 25 05/17/2025 urina lysis panel , auto Unknown Analyte Normal Not Available [facility] [address] [place], [place] [address], [place], [address], 05/17/2025 15:56:43 05/17/20 25 05/17/2025 urina lysis panel , auto Unknown Analyte Normal Not Available [facility] [address], [place], [address], 05/17/2025 15:56:43 05/17/20 25 05/17/2025 urina lysis panel , auto Unknown Analyte Negati ve Not Available [facility] [address], [place], [address], 05/17/2025 15:56:43 05/17/20 25 05/17/2025 urina lysis panel , auto Unknown Analyte Negati ve Not Available [facility] [place] [address], [place], [address], 05/17/2025 15:56:43 05/17/20 25 05/17/2025 urina lysis panel , auto Unknown Analyte Normal Not Available [facility] [address], [place], [address], 05/17/2025 15:56:43 05/17/20 25 05/17/2025 urina lysis panel , auto Unknown Analyte Normal Not Available [facility] [address], [place], [address], 05/17/2025 15:56:43 05/17/20 25 05/17/2025 urina lysis panel , auto Unknown Analyte Negati ve Not Available [facility] [address] [place] [address], [address], 05/17/2025 15:56:43 05/17/20 25 05/17/2025 urina lysis panel , auto Unknown Analyte Negati ve Not Available [facility] [address] [place] [address], [address], 05/17/2025 15:56:43 05/17/20 25 05/17/2025 urina lysis panel , auto Unknown Analyte 50 Jeremías/uL Not Available [facility] [address] [place] [address], [address], 05/17/2025 15:56:43 05/17/20 25 05/17/2025 urina lysis panel , auto Unknown Analyte Negati ve Not Available [facility] With [address], [address], 05/17/2025 15:56:43 Result Notes None recorded. Procedures Surgical History Date Name Laterality Status Provider Name and Address Organization Details Recorded Time [facility] 12/18/2024 10:56:31 [facility] 12/18/2024 10:57:27 insertion of stent into ureter completed [facility] 12/18/2024 10:57:52 Imaging Results None recorded. Procedure Notes None recorded. Medical Equipment None Reported. Allergies No known drug allergies Medications Name Sig Start Date Stop Date Status Note LastModified by Organization Details LastModified Time losartan 50 mg tablet Take 1 tablet every day by oral route. active Not Available Not Available No t Available chlorthalido ne 25 mg tablet Take 1 tablet every day by oral route. active Not Available Not Available No t Available allopurinol 100 mg tablet Take 1 tablet every day by oral route. active Not Available Not Available No t Available Xyosted 100 mg/0.5 mL subcutaneous auto-injecto r Inject 100 mg every week by subcutaneou s route as directed for 28 days. 2024 active Not Available Not Available Not Avai lable Zepbound 15 mg/0.5 mL subcutaneous pen injector Inject by subcutaneou s route. active Not Available Not Available No t Available Vitals Date Recorded Body height Body mass index (BMI) Body weight Provider Name and Address Organization Details Last Updated DateTime 05/17/2025 187.96 cm 44.9 kg/m2 274202.33 g Tish Lozoya [facility] 05/17/2025 15:57:52 Social History Question Answer Notes LastModified by Organizat ion Details LastModified Time Tobacco Smoking Status Former Smoker Not Available [employer] 12/18/2024 10:21:14 When Did You Quit Smoking? 1-5yearssinc elastcigaret te [email or web address] Information not available 12/18/2024 What Was The Date Of Your Most Recent Tobacco Screening? 01/15/2025 [email or web address] Information not available 01/15/2025 What Is Your Relationship Status? [email or web address] Information not available 12/18/2024 At What Age Did You Start Smoking Tobacco? 21 [email or web address] Information not available 12/18/2024 How Many Years Have You Smoked Tobacco? 13 [email or web address] Information not available 12/18/2024 Sex: Unknown Functional Status Question Answer Note LastModified by Organizat ion Details LastModified Time How many times per week do you consume alcohol? Less than 1 time per week [email or web address] Information not available 12/18/2024 What is your level of alcohol consumption? Occasional [email or web address] Information not available 12/18/2024 Are you currently employed? 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 Family History Relationship Description Onset Age of this Age Resolved Age Notes LastModified by Organization Details LastModified Time Mother Family history of malignant neoplasm [email or web address] Not available 2024 10:21:13 Mother Kidney stone [email or web address] Not availab le 12/18/2024 10:21:13 Medical History Condition Response Kidney Stones Y Immunizations Vaccine Type Date Status Note Provider Nam e and Address Organization Details Recorded Time Tdap 03/03/2024 completed Not Available [facility] 05/17/2025 15:26:11 Past Encounters Encounter ID Performer Location Encounter Start Date Encounter Closed Date Diagnosis/Indication Diagnosis SNOMED-CT Code Diagnosis ICD10 Code Diagnosis IMO Codes Diagnosis Note [id number] MEENU MAIER MD [facility] [address] [place] [address] 05/17/2025 15:25:12 05/17/2025 16:55:37 Kidney stone 74137884 N20.0 58699 Plan as above Male hypogonadism 486145 06 E29.1 [id number] Follow-up 6 months Health Concerns Section Related Observation LastModified by Organization Detai ls LastModified Time None Recorded Concern Status LastModified by Organization Details LastModified Time None Recorded Payers Encounter Date Sequence Insurance Name Policy Number Policy Connell Covered Member ID Connell Member ID Guarantor Name 05/17/2025 1 [facility] [facility] [id number] Gus Dash [id number] Gus Dash Notes Date Note Type Note Provider Name and Address Organization Details Recorded Time 05/17/2025 text/html Patient is here in follow-up of hypogonadism as well as urolithiasis. He is on Xyosted 100 mg weekly. His levels in December were within normal range but in the lower half of normal. He has continued to lose weight. He still is over 300 pounds. We discussed that with continued weight loss that his testosterone levels likely will continue to go up. He feels markedly better on therapy. He has had no stone issues. His urine today is concentrated with a specific gravity 1.025 and we discussed hydration. He states he sweats considerable during the day and has drank at least a gallon of water today already. MEENU MAIER MD [address] [place], [address], [facility] 05/18/2025 07:05:17
--- OUTSIDE RECORDS SUMMARY | 2025-07-18 15:50 | XMS_ITS | Encounter Summary ---
Author Organization Healthcare Address [address] [place] [address] Care Team Providers Care Couples Therapist Name Role Phone Ekaterina Tinoco MD Primary Care Provider [phone] Encounter Details Date Type Department Care Team (Late st Contact Info) Description 05/10/2025 Orders Only External Location [address] [place] [address] Provider, External Social History Tobacco Use Types [...] place to sleep or slept in a long term (including now)? No 11/11/2023 PHQ-9 Answer Date [...] any time in the past 12 m [facility], were you homeless or living in a long term (including now)? No 12/07/2024 Safety and Environment [...] Description 08/12/2025 9:20 AM EST Office Visit [facility] Orthopaedic Surgery & Sports Medicine [address], [address] [place] [address] Eleuterio Winston MD [address] [place] [address] 10/11/2025 3:20 PM EST Office Visit [facility] [address] [place] [address] Ekaterina Tinoco MD [address] [place] [address] documented as of this encounter Procedures Procedure Name Priority Date/Time Associated Diagnosis Comments XR OUTSIDE IMAGES 05/10/2025 3:10 PM EDT documented in this encounter Results * XR OUTSIDE IMAGES (05/10/2025 3:10 PM EDT) Anatomical Region Laterality Modality Radiographic Nina ging 05/10/2025 3:10 PM EDT us External Provider IMG XR PROCEDURES Edited Resul t - Final documented in this encounter Visit Diagnoses Not on filedocumented in this encounter Additional Health Concerns Infection Onset Date Last Indicated Resolved Time 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
--- OUTSIDE RECORDS SUMMARY | 2025-07-18 15:50 | XMS_ITS | Clinical Summary ---
Author Organization [facility] , [facility] Address [address] [place] [address] Phone Care Team Providers Care Drier Unloader Name Role Phone HERIBERTO SAN Unavailable [phone] Marcio ALFRED, Stanislav Pittman Unavailable [phone] Reason for Visit and Chief Complaint [facility] Out[facility] Suit[facility] Problems Includes: Problems addressed during this encounter and other active Problems All Visits Onset Date Resolved Date Provider Condition S tatus Soft Tissue Hip Pain Radiating 05/12/2019 Stanislav Buckley MD Active Last Documented On 9 2:35PM ; [facility] Plan of Treatment No Plan of Treatment Recorded Assessments Includes: Assessments from this encounter No Assessments Recorded Medical Equipment - Implanted Devices Includes: Current Devices No Medical Equipment Recorded Medications Includes: Medications discussed during this encounter and other current Medications Current Medications (continue as prescribed) Allopurinol 100 MG Oral Tablet 06/22/2019 Provider: Diagnosis: Last Documented On 9 2:53PM By Sammy Navarro [facility] Lisinopril 10 MG Oral Tablet 05/30/2019 Provider: KENNEDY LYN Diagnosis: Last Documented On 9 2:53PM By Sammy Hurt ; [facility] Medications Administered Includes: Administered Medications [...] Location Date Check-In Time Check-Out Time Diagnosis [facility] Lauri Salazar MD Surgery 0 8:02AM 11:59PM Insurance Includes: Active Insurance Policies Plan Name Member ID Group # Subscriber Relationship Effect burton Dates 1 - [facility] [id number] MATTHEW RODRIGUEZ Self 08/26/2019 - Unknown Clinical Notes Includes: Clinical Notes from this encounter No Clinical Notes Recorded
--- OUTSIDE RECORDS SUMMARY | 2025-07-18 15:50 | XMS_ITS | Encounter Summary ---
Author Organization [facility] Address [address] [place] [address] Care Team Providers Care Clinical Care Leader Name Role Phone Ekaterina Tinoco MD Primary Care Provider [phone] Encounter Details Date Type Department Care Team (Late st Contact Info) Description 06/10/[address] [facility] Orthopaedic Surgery & Sports Medicine [address], [address] [place] [address] Eleuterio Winston MD [address] [place] [address] Social History Tobacco Use Types Packs/Day Years [...] to sleep or slept in a senior living (including now)? No 11/11/2023 PHQ-9 Answer Date [...] any time in the past 12 m [facility], were you homeless or living in a senior living (including now)? No 12/07/2024 Safety and Environment [...] encounter Miscellaneous Notes * Telephone Encounter - Merary Julien - 06/10/2025 3:46 PM EDT accepted mri and fu documented in this encounter Plan of Treatment Upcoming Encounters Date Type Department Care Team (Late st Contact Info) Description 08/12/2025 9:20 AM EST Office Visit [facility] Orthopaedic Surgery & Sports Medicine [address], [address] [place] [address] Eleuterio Winston MD [address] [place] [address] 10/11/2025 3:20 PM EST Office Visit [facility] [address] [place] [address] Ekaterina Tinoco MD [address] [place] [address] documented as of this encounter [...] documented as of this encounter Care Teams Clinical Care Leader Relationship Specialty Start Date End Date Ekaterina Tinoco MD [address] [place] [address] PCP - General Family Medicine 12/06/23 documented as of this encounter
--- OUTSIDE RECORDS SUMMARY | 2025-07-18 15:50 | XMS_ITS | Referral Summary ---
Author Organization [email or web address] ([place], [place], [place], [place], [place]) Address [address] [place] [address] Care Team Providers Care Security Officers And Guards Name Role Phone Unavailable Primary Care Provider Unavailabl e Allergies No known active allergies Medications tirzepatide, weight loss, (Zepbound) 15 mg/0.5 mL pnij Inject 0.5 mLs (15 mg total) under the skin every 7 days. Active chlorthalidone (HYGROTON) 25 MG tablet Take 1 tablet (25 mg total) by mouth daily. Active allopurinoL (ZYLOPRIM) 100 MG tablet Take 1 tablet (100 mg total) by mouth daily. Active losartan (COZAAR) 50 MG tablet Take 1 tablet (50 mg total) by mouth daily. Active Active Problems Problem Noted Date Diagnosed Date BMI 45.0-49.9, adult 12/24/2024 Hypertension Kidney stones Social History Tobacco Use Types Packs/Day Years Used Date Smoking Tobacco: Never Assessed Sex and Gender Information Value Date Recorded Sex Assigned at Not on file Legal Sex Male 4:45 PM CDT Gender Identity Not on file Sexual Orientation Not on file Last Filed Vital Signs Vital Sign Reading Time Taken Comments Blood Pressure 164/93 12/24/2024 4:20 PM EDT Pulse 86 12/24/2024 4:20 PM EDT Temperature 36.9 C (98.4 F) 12/24/2024 4:10 PM EDT Respiratory Rate 18 12/24/2024 4:20 PM EDT Oxygen Saturation 99% 12/24/2024 4:20 PM EDT Inhaled Oxygen Concentration - - Weight 159.7 kg (352 lb) 12/24/2024 11:35 AM EDT Height 188 cm (6' 2 ) 12/24/2024 11:35 AM EDT Body Mass Index 45.19 12/24/2024 11:35 AM EDT Plan of Treatment Not on file Insurance BLUE CROSS/BLUE SHIELD Advance Directives For more information, please contact: [phone] * Full Code (Latest Code Status on File) Date Activated Date Inactivated Comments 12/24/2024 10:30 AM 12/24/2024 5:43 PM
--- OUTSIDE RECORDS SUMMARY | 2025-07-18 15:50 | XMS_ITS | Encounter Summary ---
Author Organization [facility] Address [address] [place] [address] Care Team Providers Care Photoresist Printer Name Role Phone Ekaterina Tinoco MD Primary Care Provider [phone] Reason for Visit * Reason Onset Date Comments HCN - Patient Message 07/16/2025 Encounter Details Date Type Department Care Team (Late st Contact Info) Description 07/16/2025 Telephone [facility] Orthopaedic Surgery & Sports Medicine [address] [place] [address] Eleuterio Winston MD [address] [place] [address] HCN - Patient Message Social History Tobacco Use Types Packs/Day Years [...] any time in the past 12 m [facility], were you homeless or living in a [...] Unloaded or Locked Away Not on file 03/ Utilities Answer Date Recorded In the past 12 months has e electric, gas, oil, or water company [...] encounter Miscellaneous Notes * Telephone Encounter - Shannan Dalton - 07/16/2025 4:42 PM EST Paperwork/Documentation Request MIHAELA Patient Name: Gus Dash Type: 07/14 office notes and work status Due Date: IVONE Send To: Flavia Reyes fax #[phone] Best contact number: Other: Flavia [phone] Optimal time of day to reach caller: ANYTIME Additional comments/information from caller: None Note: Please do not reply to this message. Follow-up communication and further actions as a result of this message need to be communicated with the patient directly, if the patient is not active onMyChart. If the patient is active on MyChart, they will receive notification of the communication/outcome via [employer]. documented in this encounter Plan of Treatment Upcoming Encounters Date Type Department Care Team (Late st Contact Info) Description 08/12/2025 9:20 AM EST Office Visit [facility] Orthopaedic Surgery & Sports Medicine [address] , [address] [place] [address] Eleuterio Winston MD [address] [place] [address] 10/11/2025 3:20 PM EST Office Visit [address] [place] [address] Ekaterina Tinoco MD [address] [place] [address] documented as of this encounter [...] documented as of this encounter Care Teams Photoresist Printer Relationship Specialty Start Date End Date Ekaterina Tinoco MD [address] [place] [address] PCP - General Family Medicine 12/06/23 documented as of this encounter
--- OUTSIDE RECORDS SUMMARY | 2025-07-18 15:50 | XMS_ITS | Encounter Summary ---
Author Organization [facility] Address [address] [place] [address] Care Team Providers Care Copyright Expert Name Role Phone Ekaterina Tinoco MD Primary Care Provider [phone] Encounter Details Date Type Department Care Team (Late st Contact Info) Description 05/10/2025 Outside Procedure External Location [address] [place] [address] Provider, Sacha [place] Social History Tobacco Use Types Packs/Day Years [...] place to sleep or slept in a fci (including now)? No 11/11/2023 PHQ-9 Answer Date [...] any time in the past 12 m [facility], were you homeless or living in a fci (including now)? No 12/07/2024 Safety and Environment [...] Center Orthopaedic Surgery & Sports Medicine [address] [place] [address] Eleuterio Winston MD [address] [place] [address] 10/11/2025 3:20 PM EST Office Visit [facility] [address] [place] [address] Ekaterina Tinoco MD [address] [place] [address] documented as of this encounter Procedures Procedure Name Priority Date/Time Associated Diagnosis Comments XR SHOULDER RIGHT 2+ VIEWS 05/10/2025 3:08 PM EDT documented in this encounter Results * XR Shoulder Right 2+ Views (05/10/2025 3:08 PM EDT) Anatomical Region Laterality Modality Upper Extremities, Shoulder Right [facility] [employer] Radiography 05/10/2025 3:08 PM EDT Narrative 05/10/2025 4:27 PM EDT [address] [place] [address] Name: MATTHEW DASH Exam Date: 05/10/2025 : 1990 Age 35 years Gender: M Physician: MAYNOR ALMENDAREZ Facility: [facility] Facility HSV: Outpatient Exam: SHOULDER COMP MIN 2 VWS RT Right shoulder multiple views HISTORY: Shoulder pain TECHNIQUE: 4 views performed FINDINGS: No fracture dislocation or AC separation. Minimal DJD. Some vascular congestion the chest. No radiopaque calcifications or foreign body is evident. IMPRESSION: Minimal DJD. Electronically signed by: Zelalem Rangel MD 05/10/2025 04:22 PM EDT RP Dictated By: Zelalem Rangel Transcribed By: Transcribed On: 05/10/2025 4:22 PM Electronically signed by: Zelalem Rangel 05/10/2025 Thank you for referring MATTHEW DASH to [facility]. Legally authenticated by EYAD SWANSON 2025-05-10 16:22:34 Procedure Note Provider, [facility] - 05/10/2025 [address] [place] [address] Name: MATTHEW DASH Exam Date: 05/10/2025 : 1990 Age 35 years Gender: M Physician: MAYNOR ALMENDAREZ Facility: [facility] Facility HSV: Outpatient Exam: SHOULDER COMP MIN 2 VWS RT Right shoulder multiple views HISTORY: Shoulder pain TECHNIQUE: 4 views performed FINDINGS: No fracture dislocation or AC separation. Minimal DJD. Some vascular congestion the chest. No radiopaque calcifications or foreign body isevident. IMPRESSION: Minimal DJD. Electronically signed by: Zelalem Rangel MD 05/10/2025 04:22 PM EDT RP Dictated By: Zelalem Rangel Transcribed By: Transcribed On: 05/10/2025 4:22 PM Electronically signed by: Zelalem Rangel 05/10/2025 Thank you for referring MATTHEW DASH to [facility]. Legally authenticated by EYAD SWANSON 2025-05-10 16:22:34 Generic Rew Provider IMG XR PROCEDURES Fi nal Result documented in this encounter Visit Diagnoses [...] documented as of this encounter Care Teams Copyright Expert Relationship Specialty Start Date End Date Ekaterina Tinoco MD [address] [place] [address] PCP - General Family Medicine 12/06/23 documented as of this encounter
--- OUTSIDE RECORDS SUMMARY | 2025-07-18 15:50 | XMS_ITS | Encounter Summary ---
Author Organization [facility] Address [address] [place] [address] Care Team Providers Care Fire Boss Name Role Phone Ekaterina Tinoco MD Primary Care Provider [phone] Encounter Details Date Type Department Care Team (Latest Contact Info) Description 06/29/2025 Travel Social History Tobacco Use Types Packs/Day [...] place to sleep or slept in a alf (including now)? No 11/11/2023 PHQ-9 Answer Date [...] any time in the past 12 m [facility], were you homeless or living in a alf (including now)? No 12/07/2024 Safety and Environment [...] Description 08/12/2025 9:20 AM EST Office Visit [facility] Orthopaedic Surgery & Sports Medicine [address] [place] [address] Eleuterio Winston MD [address] [place] [address] 10/11/2025 3:20 PM EST Office Visit [facility] [address] [place] [address] Ekaterina Tinoco MD [address] [place] [address] documented as of this encounter [...] documented as of this encounter Care Teams Fire Boss Relationship Specialty Start Date End Date Ekaterina Tinoco MD [address] [place] [address] PCP - General Family Medicine 12/06/23 documented as of this encounter
--- OUTSIDE RECORDS SUMMARY | 2025-07-18 15:50 | XMS_ITS | Clinical Summary ---
Author Organization [facility] Address [address] [place] [address] Phone [email or web address] Care Team Providers Care Packager Name Role Phone Ekaterina Tinoco MD Primary Care Provider [phone] Allergies No known active allergies Medications allopurinol (ZYLOPRIM) 100 MG tablet Take 100 mg by mouth 1 (one) time each day. 0 Active losartan (COZAAR) 50 MG tablet Take 50 mg by mouth 1 (one) time each day. 2 Active Tirzepatide-Daniel ght Management (Zepbound, tirzepatide, 10mg/0.5mL Single-Dose Pen SQ) 10 MG/0.5ML solution auto-injector Inject 10 mg under the skin 1 (one) time. Active chlorthalidone (HYGROTON) 25 MG tablet Take 25 mg by mouth 1 (one) time each day. Active cyclobenzaprine (FLEXERIL) 5 MG tabletIndicatio ns:Acute pain of right shoulder Take 1 tablet (5 mg total) by mouth at night if needed for muscle spasms. 20 tablet 5 Active testosterone cypionate, DEPO-TESTOSTERO NE, injection, 100 mg/mL VIAL, IM Inject as directed every 14 (fourteen) days. Active meloxicam (Mobic) 15 MG tabletIndicatio ns:Acute pain of right shoulder Take 1 tablet (15 mg total) by mouth 1 (one) time each day. 30 tablet 5 06/30/20 25 Active Problems Problem Noted Date Diagnosed Date Hyperuricemia 05/10/2025 Nephrolithiasis 05/10/2025 HTN (hypertension) 05/10/2025 Obesity 05/10/2025 Resolved Problems Problem Noted Date Diagnosed Date Resolved Date Return to work evaluation 06/12/2021 Acute pain of right wrist 07/14/2018 Health examination of defined subpopulation 06/29/2008 05/10/2025 Overview (01/22/2018): Encounters Date Type Department Care Team Description 07/16/2025 Telephone [facility] [address] [place] [phone] Jg Alejandro, MARTINA 07/14/2025 Telephone [facility] [address] [place] [address] Jackeline Santos, MARTINA 06/30/2025 Telephone [facility] [address] [place] [address] Jackeline Santos, MARTINA 06/11/2025 Telephone [facility] [address] [place] [phone] Payton Alas, MARTINA 06/08/2025 Telephone [facility] [address] [place] [phone] Payton Alas, MARTINA 05/12/2025 Orders Only [employer] [facility] [address] [place] [address] Della Cummings, unit aide pain of right shoulder from Last 3 Months Immunizations Immunization Administration Dates Next Due Tdap (ADACEL BOOSTRIX) (CVX-115) 03/03/2024,01/2012 Social History Tobacco Use Types Packs/Day Years Used Date Smoking Tobacco: Former Cigarettes 1 10/22/2023 - 09/09/2009 Smokeless Tobacco: Never Tobacco Cessation:Counseling Given: Not Answered Intimate Partner Violence Answer Date R ecorded [...] Sign Reading Time Taken Comments Blood Pressure 110/74 07/16/2025 4:27 PM EST Pulse 96 07/16/2025 4:27 PM EST Temperature 36.7 C (98.1 F) 07/16/2025 4:27 PM EST Respiratory Rate 18 07/02/2025 1:46 PM EST Oxygen Saturation 98% 07/16/2025 4:27 PM EST Inhaled Oxygen Concentration - - Weight 166 kg (365 lb) 05/10/2025 9:43 AM EDT Height 188 cm (6' 2 ) 05/10/2025 9:43 AM EDT Body Mass Index 46.86 05/10/2025 9:43 AM EDT Plan of Treatment Upcoming Encounters Date Type Department Care Team (Late st Contact Info) Description 07/19/2025 1:30 PM EST Occ Treatment [facility] [address] [place] [address] Hilton Fiore, PT [address] [place] [address] 07/20/2025 1:30 PM EST Occ Treatment [facility] [address] [place] [address] Hilton Fiore, PT [address] [place] [address] 08/13/2025 11:30 AM EST Occ Office Visit [facility] Train [address] [place] [address] Leonarda Henry PA [address] [place] [address] Health Maintenance Due Date Last Done Comments Dental Cleaning/Exam 1990 HIV Screening 1990 Hepatitis C Screening 1990 HPV Immunization (1 - Male 3-dose series) 2005 Annual Preventive Exam 2008 Hep B Infection Screening - Triple Screen 2008 Hepatitis B Immunization (1 of 3 - 19+ 3-dose series) 2009 Covid-19 Immunization (1 - season) 2025 Influenza Immunization (#1) 2025 Tetanus Diphtheria and Pertussis Immunization (3 - Td or Tdap) 03/03/2034 03/03/2024, 02/29/2012 HIB Immunization Aged Out No longer e ligible based on patient's age to complete this topic Hepatitis A Immunization Aged Out No longer eligible based on patient's age to complete this topic Pneumococcal Immunization Aged Out No longer eligible based on patient's age to complete this topic Polio Immunization Aged Out No longer eligible based on patient's age to complete this topic Varicella Immunization Aged Out No lo nger eligible based on patient's age to complete this topic Procedures Procedure Name Priority Date/Time Associated Diagnosis Comments AMB REFERRAL TO IMAGING Routine 05/12/2025 3:15 PM EDT Acute pain of right shoulder from Last 3 Months Results * Ambulatory referral to Imaging (05/12/2025 3:15 PM EDT) Leonarda GARCIA OUTPATIENT REFERRAL DENISE KEITA Final Result from Last 3 Months Insurance [place] [facility] Address: [address] [place] [address] [employer] [id number] [place] [address] [facility] Care Teams Packager Relationship Specialty Start Date End Date Ekaterina Tinoco MD [address] [place] [address] PCP - General Storage Management Architect 01/06/20
--- OUTSIDE RECORDS SUMMARY | 2025-07-18 15:50 | XMS_ITS | Encounter Summary ---
Author Organization [facility] Address [address] [place] [address] Phone [email or web address] Care Team Providers Care Retail Support Specialist Name Role Phone Ekaterina Tinoco MD Primary Care Provider [phone] Encounter Details Date Type Department Care Team (Late st Contact Info) Description 06/30/2025 Telephone [employer] [facility] [address] [place] [address] Jackeline Santos RN [address] [place] [address] Social History Tobacco Use Types [...] encounter Miscellaneous Notes * Telephone Encounter - Jackeline Santos RN - 06/30/2025 7:13 AM EST Images from the original note were not included. Gus Dash WD ID: [id number] Employer: [employer] Date of Hire: 06/25/2016 Cost Center: [id number] Description: PWT Team: T2 Headline Machining Shift: 1 Full-time GL and Ext: Herminio Gurrola Case #: [id number] DOI: 04/30/25 Hand dominance: right handed. Body Part: right shoulder(s) store team member stopped by [address] [place] [address] with paperwork from Specialist appt. He has an [facility] appt on week. He has been told no surgery post recent MRI and he will need ultrasound guided injection, scheduled for next Friday 07/06. Told to continue current restrictions and resume PT. Told him toreview this with provider and to check with prior to injection next week to make sure approved. Discharge paperwork from [facility] / Dr. Winston will be sent to [address] [place] [address] for scanning to [facility]. Jackeline Santos RN H SETTER documented in this encounter Plan of Treatment Upcoming Encounters Date Type Department Care Team (Late st Contact Info) Description 07/19/2025 1:30 PM EST Occ Treatment [facility] [address] [place] [address] Hilton Fiore, PT [address] [place] [address] 07/20/2025 1:30 PM EST Occ Treatment [facility] [address] [place] [address] Hilton Fiore, PT [address] [place] [address] 08/13/2025 11:30 AM EST Occ Office Visit [facility] [address] [place] [address] Leonarda Henry PA [address] [place] [address] documented as of this encounter Visit Diagnoses Not on filedocumented in this encounter Care Teams Retail Support Specialist Relationship Specialty Start Date End Date Ekaterina Tinoco MD [address] [place] [address] PCP - General Crm Specialist 01/06/20 documented as of this encounter
--- OUTSIDE RECORDS SUMMARY | 2025-07-18 15:50 | XMS_ITS ---
Author Organization [facility] Address [address] [place] [address] Phone Care Team Providers Care Inspector Metal Fabricating Name Role Phone SANHERIBERTO ALLEN Unavailable [phone] Marcio ALFRED, Stanislav Pittman Unavailable [phone] Problems Includes: Active, inactive, and resolved Problems All Visits Onset Date Resolved Date Provider Condition S tatus Soft Tissue Hip Pain Radiating 05/12/2019 Stanislav Buckley MD Active Last Documented On 9 2:35PM ; [facility] Plan of Treatment Instructions to patient Instructions for patient See PCP for weight loss Last Documented On 3 8:34AM ; [facility] Lose weight Last Documented On 3 8:45AM ; [facility] Instructions for patient See PCP for weight loss Last Documented On 0 8:59AM ; [facility] Instructions for patient See PCP for BP and weight loss Last Documented On 0 11:32AM ; [facility] Instructions for patient Last Documented On 0 3:17PM ; [facility] Instructions for patient Last Documented On 9 2:37PM ; [facility], [facility] Assessments Includes: Assessments for all patient encounters [...] Documented On 0 8:59AM ; [facility] Instructions for patient See PCP for BP and weight loss Last Documented On 0 11:32AM ; [facility], [facility] Instructions for patient Last Documented On 0 3:17PM ; [facility], [facility] Instructions for patient Last Documented On 9 2:37PM ; [facility], [facility] Medical Equipment - Implanted Devices Includes: Current and historical Devices No Medical Equipment Recorded Medications Includes: Current and historical Medications Current Medications (continue as prescribed) Allopurinol 100 MG Oral Tablet 06/22/2019 Provider: Diagnosis: Last Documented On 9 2:53PM By Sammy Hurt ; [facility], [facility] Lisinopril 10 MG Oral Tablet 05/30/2019 Provider: KENNEDY LYN Diagnosis: Last Documented On 9 2:53PM By Sammy Hurt ; [facility] Past Medications on file Percocet 5-325 MG OR TABS 11/04/2019 - 11/19/2019 Prov ider: Lauri Salazar MD Diagnosis: prn pain Last Documented On 0 2:39PM By Vicki Navarro [facility], [facility] Protonix 40 MG Oral Tablet Delayed Release 07/14/2019 - 08/13/2019 Provider: Stanislav Buckley MD Diagnosis: once a day Last Documented On 9 12:06PM By Sammy Hurt ; [facility], [facility] Ibuprofen 600 MG Oral Tablet 07/14/2019 - 08/13/2019 Toya garcia: Stanislav Buckley MD Diagnosis: Take 1 tablet every 8 hrs prn pain Last Documented On 9 12:08PM By Sammy Hurt ; [facility], [facility] Medrol 4 MG Oral Tablet Ther apy Pack 06/24/2019 - 07/24/2019 Provider: Stanislav Buckley MD Diagnosis: take as directed by medrol dose pack Last Documented On 9 3:45PM By Sammy Hurt ; [facility] Medications Administered Includes: Administered Medications in patient's chart No Administered Medications Recorded Results Includes: Results from 07/18/2024 through 07/18/2025 No Results Recorded For Specified Dates History of Present Illness History of Present Illness not supported for this document type No History of Present Illness Recorded Social History Description Last Updated Tobacco non-user 01/07/2023 Last Documented On 3 12:40PM ; [facility] Caffeine use 01/07/2023 Last Documented On 3 12:40PM ; [facility] No recent change in diet 01/07/2023 Last Documented On 3 12:40PM ; [facility] Yes, current smoker. 01/07/2023 Last Documented On 3 12:40PM ; [facility] No recent change in diet 09/03/2019 Last Documented On 0 9:53AM ; [facility] No tobacco use 09/03/2019 Last Documented On 0 9:53AM ; [facility] Not a current smoker quit 2 years ago Last Documented On 0 9:53AM ; [facility] Not exercising regularly 09/03/2019 Last Documented On 0 9:53AM ; [facility] Not using alcohol 09/03/2019 Last Documented On 0 9:53AM ; [facility] Not using drugs 09/03/2019 Last Documented On 0 9:53AM ; [facility] Smoking status : Former smoker quit 2 ye ars ago 09/03/2019 Last Documented On 0 9:53AM ; [facility] Medical History Includes: Medical History in patient's chart Description Last Updated History of Hypertension 01/07/2023 Last Documented On 3 12:40PM ; [facility] kidney stent and GI scope 09/03/2019 Last Documented On 0 9:53AM ; [facility] Intermittent hypertension 09/03/2019 Last Documented On 0 9:53AM ; [facility] Family History Includes: Family History in patient's chart Description Last Updated Diabetes mellitus 01/07/2023 Last Documented On 3 12:40PM ; [facility] Family history of cancer 01/07/2023 Last Documented On 3 12:40PM ; [facility] Family history of diabetes mellitus 04/2020 Last Documented On 0 9:53AM ; [facility] Review of Systems Review of Systems not [...] Subscriber Relationship Effect burton Dates 1 - [facility] [id number] MATTHEW RODRIGUEZ Self 08/26/2019 - Unknown Clinical Notes Includes: Signed Clinical Notes starting from 08/09/2022 No Clinical Notes Recorded
--- OUTSIDE RECORDS SUMMARY | 2025-07-18 15:50 | XMS_ITS | Clinical Summary ---
Author Organization [facility] ([place], [place], [place], [place], [place]) Address [address] [place] [address] Care Team Providers Care Cloud Security Architect Name Role Phone Unavailable Primary Care Provider [...] 12/24/2024 11:35 AM EDT Plan of Treatment Health Maintenance Due Date Last Done Comments Depression Screening (12+) 2002 Tobacco Cessation Counseling and Screening (12+) 2002 HIV Screening 2005 Hepatitis C Screening 2008 COVID-19 VACCINE (1 - 2023-2 5 season) 2025 Influenza Vaccine (#1) 2025 Lipid Panel 2025 DTAP/TDAP/TD VACCINES (3 - T d or Tdap) 03/03/2034 03/03/2024, 02/29/2012 Pneumococcal Vaccine: 0-49 Years Aged Out No longer eligible b ased on patient's age to complete this topic Insurance BLUE CROSS/BLUE SHIELD Advance Directives For more information, please contact: [phone] * Full Code (Latest Code Status on File) Date Activated Date Inactivated Comments 12/24/2024 10:30 AM 12/24/2024 5:43 PM
--- OUTSIDE RECORDS SUMMARY | 2025-07-18 15:50 | XMS_ITS | Encounter Summary ---
Author Organization [facility] Address [address] [place] [address] Care Team Providers Care Telegraph Office Manager Name Role Phone Ekaterina Tinoco MD Primary Care Provider [phone] Laura Mascorro APRN Primary Care Provider [phone] Debbie Munoz APRN Primary Care Provider [phone] Ekaterina Tinoco MD Primary Care Provider [phone] Reason for Visit * Reason Comments Med Refill Encounter Details Date Type Department Care Team (Late st Contact Info) Description 09/03/2022 Refill Family and Community Medicine [address] [place] [address] Ekaterina Tinoco MD [address] [place] [address] Hypogonadism in male Social History Tobacco Use Types Packs/Day Years Used Date Smoking Tobacco: Former Cigarettes 0.3 9 2 012 - 2020 Smokeless Tobacco: Never Alcohol Use Standard Drinks/Week Comments Never 0 (1 standard drink = 0.6 oz pur e alcohol) PHQ-2 Answer Date Recorded Patient Health Questionnaire-2 Score 0 06/06/2021 Sex and Gender Information Value Date Recorded Sex Assigned at Not on file Legal Sex Male 6:22 PM EDT Gender Identity Not on file Sexual Orientation Not on file COVID-19 Exposure Response Date Recorded In the last 10 days, have yo u been in contact with someone who was confirmed or suspected to have Coronavirus/COVID-19? No / Unsure 09/05/2022 3:02 PM EST documented as of this encounter Plan of Treatment Upcoming Encounters Date Type Department Care Team (Late st Contact Info) Description 08/12/2025 9:20 AM EST Office Visit 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 12/04/2022 Assessment Noted Time A fall risk assessment has been complete d for the patient 06/25/2022 3:52 PM EDT documented as of this encounter Care Teams Telegraph Office Manager Relationship Specialty Start Date End Date Ekaterina Tinoco MD [address] [place] [address] PCP - General 01/06/21 06/30/23 Laura Mascorro APRN [address] [place] [id number] PCP - General Family Medicine 07/01/23 12/04/23 Debbie Munoz APRN [address] [place] [address] PCP - General Family Medicine 12/05/23 12/05/23 Ekaterina Tinoco MD [address] [place] [address] PCP - General Family Medicine 12/06/23 documented as of this encounter
--- OUTSIDE RECORDS SUMMARY | 2025-07-18 15:50 | XMS_ITS | Clinical Summary ---
Author Organization [facility] Address [address] [place] [address] Care Team Providers Care Electronics Processor Name Role Phone Ekaterina Tinoco MD Primary Care Provider [phone] Allergies No known active allergies Medications naproxen (NAPROSYN) 500 MG tablet Take 1 tablet by mouth 2 (Two) Times a Day As Needed for Mild Pain. 20 tablet 3 Active ondansetron ODT (ZOFRAN-ODT) 4 MG disintegrating tablet Take 1 tablet by mouth Every 6 (Six) Hours As Needed for Nausea or Vomiting. 27 tablet 4 Active oxyCODONE-acetamino phen (PERCOCET) 7.5-325 MG per tabletIndications:Barry lul jensen Take 1 tablet by mouth Every 6 (Six) Hours As Needed for Severe Pain or Moderate Pain. 12 tablet 4 Active Social History Tobacco Use Types Packs/Day Years Used Date Smoking Tobacco: Never Assessed Abuse Screen Answer Date Recorded Feels Unsafe at Home or Work/School no 07/29/2024 Feels Threatened by Someone no 11/2023 Does Anyone Try to Keep You From Having Contact with Others or Doing Things Outside Your Home? no 07/29/2024 Physical Signs of Abuse Present no 07/29/2024 Sex and Gender Information Value Date Recorded Sex Assigned at Not on file Legal Sex Male 10:27 AM EDT Gender Identity Not on file Sexual Orientation Not on file Last Filed Vital Signs Vital Sign Reading Time Taken Comments Blood Pressure 126/81 07/29/2024 4:00 PM EST Pulse 99 07/29/2024 4:28 PM EST Temperature 36.5 C (97.7 F) 07/29/2024 12:52 PM EST Respiratory Rate 20 07/29/2024 12:52 PM EST Oxygen Saturation 94% 07/29/2024 4:28 PM EST Inhaled Oxygen Concentration - - Weight 161 kg (356 lb) 07/29/2024 12:52 PM EST Height 188 cm (6' 2 ) 07/29/2024 12:52 PM EST Body Mass Index 45.71 07/29/2024 12:52 PM EST Plan of Treatment Health Maintenance Due Date Last Done Comments ANNUAL PHYSICAL 08/20/2024 INFLUENZA VACCINE 03/26/2025 TDAP/TD VACCINES (3 - Td or Tdap) 03/03/2034 03/03/2024, 02/29/2012 HEPATITIS C SCREENING Completed 12/04/2022 Pneumococcal Vaccine 0-49 Aged Out No longer eligible based on patient's age to complete this topic Insurance [facility] PPO Care Teams Electronics Processor Relationship Specialty Start Date End Date Ekaterina Tinoco MD [address] [place] [address] PCP - General Family Medicine 07/30/24
--- OUTSIDE RECORDS SUMMARY | 2025-07-18 15:50 | XMS_ITS | Data Portability ---
Author Organization RUBÉN DOM [facility]OS[facility] Address [address] [place] [address] Care Team Providers Care Institutional Cook Name Role Phone EKATERINA TINOCO Referring Provider Assessment No assessment recorded. Plan of Treatment Reminders Order Date Submit Date Provider Last Modified By Organization Details Last Modified Time Details Appointments RECHECK 2025 04:00P M MEENU MAIER MD Not available Not available Not available Lab urinalysi s panel, auto 2024 025 [facility], [address] [place], [place] [address], [place], [address], 05/18/2025 07:04:43 urinalysi s panel, auto 2024 025 [email or web address] [facility], [address] [place], [place] [address], [address], [place], [address], 01/15/2025 15:50:25 kidney stone analysis [address] [facility], [address] [place] [address], [address], 01/20/2025 03:06:37 testoster one, total, serum 2024 025 [email or web address] [facility], [address] [place] [address], [address], 01/15/2025 15:50:25 testoster one, free, serum [address] [facility], [address] [place] [address], [address], 01/21/2025 12:22:15 FSH (follicle -stimulat ing hormone), serum [address] [facility], [address] [place] [address], [address], 01/15/2025 15:50:25 lh (luteiniz ing hormone), serum [address] [facility], [address] [place] [address], [address], 01/15/2025 15:50:25 prolactin , serum [address] [facility], [address] [place] [address], [address], 01/15/2025 15:50:25 urinalysi s panel, auto [address] [facility], [address] [place] [address], [address], [place], [address], 12/23/2024 00:28:04 Referral None recorded. Procedures None recorded. Surgeries extra corporeal shock wave lithotrip sy (SURG) [address] (Surgery Scheduling), [address], [place], [address], 01/22/2025 12:10:38 Imaging XR, abdomen, 1 view - PRE OP KUB [address] Scheduling, [address], [place], [address], 01/22/2025 12:10:26 Medication Orders Xyosted 100 mg/0.5 mL subcutane ous auto-inje ctor 2024 025 [facility], [address] [place] [address], [place], [address], 05/18/2025 07:04:56 Xyosted 100 mg/0.5 mL subcutane ous auto-inje ctor 2024 025 [facility], [address] [place] [address], [place], [address], 01/15/2025 15:08:57 Patient TargetsNo targets recorded. Patient Instructions Encounter Date Encounter Id Patient Instructions Last Modified By Organization Details Last Modified Time 12/18/2024 [id number] learning about healthy weight Not available 12/23/2024 00:28:04 Reason for Referral None Reported. Results Created Date Observation Date Name Description Value Unit Range Abnormal Flag Note LastModifiedBy Organization Detail LastModifiedTime 12/19/1912/18/2024 urina lysis panel , auto Unknown Analyte Clean Catch Not Available [facility] [address], [address], 12/18/2024 10:23:54 12/19/1912/18/2024 urina lysis panel , auto Unknown Analyte Yellow Not Available [facility] [address] [place] [address], [address], 12/18/2024 10:23:54 12/19/1912/18/2024 urina lysis panel , auto Unknown Analyte Clear Not Available [facility] [address] [place] [address], [address], 12/18/2024 10:23:54 12/19/19 25 12/18/2024 urina lysis panel , auto Unknown Analyte 1.010 Not Available [facility] [address], [place], [address], 12/18/2024 10:23:54 12/19/19 25 12/18/2024 urina lysis panel , auto Unknown Analyte 1.003 - 1.030 Not Available [facility] [address], [place], [address], 12/18/2024 10:23:54 12/19/1912/18/2024 urina lysis panel , auto Unknown Analyte 9.0 Not Available [facility] [address], [place], [address], 12/18/2024 10:23:54 12/19/1912/18/2024 urina lysis panel , auto Unknown Analyte 5.0 - 8.0 Not Available [facility] [address], [place], [address], 12/18/2024 10:23:54 12/19/19 25 12/18/2024 urina lysis panel , auto Unknown Analyte Negati ve Not Available [facility] [address], [place], [address], 12/18/2024 10:23:54 12/19/1912/18/2024 urina lysis panel , auto Unknown Analyte Negati ve Not Available [facility] [address], [place], [address], 12/18/2024 10:23:54 12/19/19 25 12/18/2024 urina lysis panel , auto Unknown Analyte Negati ve Not Available [facility] [address], [place], [address], 12/18/2024 10:23:54 12/19/19 25 12/18/2024 urina lysis panel , auto Unknown Analyte Negati ve Not Available [facility] [address], [place], [address], 12/18/2024 10:23:54 12/19/1912/18/2024 urina lysis panel , auto Unknown Analyte Negati ve Not Available [facility] [address], [place], [address], 12/18/2024 10:23:54 12/19/19 25 12/18/2024 urina lysis panel , auto Unknown Analyte Negati ve Not Available [facility] [address], [place], [address], 12/18/2024 10:23:54 12/19/19 25 12/18/2024 urina lysis panel , auto Unknown Analyte Normal Not Available [facility] [address], [place], [address], 12/18/2024 10:23:54 12/19/19 25 12/18/2024 urina lysis panel , auto Unknown Analyte Normal Not Available [facility] [address], [place], [address], 12/18/2024 10:23:54 12/19/19 25 12/18/2024 urina lysis panel , auto Unknown Analyte Negati ve Not Available [facility] [address], [place], [address], 12/18/2024 10:23:54 12/19/19 25 12/18/2024 urina lysis panel , auto Unknown Analyte Negati ve Not Available [facility] [address], [place], [address], 12/18/2024 10:23:54 12/19/1912/18/2024 urina lysis panel , auto Unknown Analyte Normal Not Available [facility] [address], [place], [address], 12/18/2024 10:23:54 12/19/19 25 12/18/2024 urina lysis panel , auto Unknown Analyte Normal Not Available [facility] [address], [place], [address], 12/18/2024 10:23:54 12/19/19 25 12/18/2024 urina lysis panel , auto Unknown Analyte Negati ve Not Available [facility] [address], [place], [address], 12/18/2024 10:23:54 12/19/19 25 12/18/2024 urina lysis panel , auto Unknown Analyte Negati ve Not Available [facility] [address], [place], [address], 12/18/2024 10:23:54 12/19/19 25 12/18/2024 urina lysis panel , auto Unknown Analyte Negati ve Not Available [facility] [address], [place], [address], 12/18/2024 10:23:54 12/19/19 25 12/18/2024 urina lysis panel , auto Unknown Analyte Negati ve Not Available [facility] [address], [place], [address], 12/18/2024 10:23:54 01/16/20 25 01/15/2025 PROLA CTIN prolactin 12.00 NG/mL 4.04-1 5.20 normal Not Available [facility] [address] [place] [address], [address], 01/15/2025 13:50:10 01/16/20 25 01/15/2025 TESTO STERO NE, TOTAL testosterone , total 322 NG/dL 249-83 6 normal Refer ence range is for age 20-49 years . Not Available [facility] [address] [place] [address], [address], 01/15/2025 13:50:11 01/16/20 25 01/15/2025 LUTEN IZING HORMO NE lutenizing hormone 4.3 m[IU] /mL 1.7-8. 6 normal LH EXPEC HERSON VALUE S WOMEN : FOLLI CULAR PHASE 2.4-1 2.6 mIU/m L OVULA TION PHASE 14.0- 95.6 mIU/m L LUTEA L PHASE 1.0-1 1.4 mIU/m L POSTM ENOPA USE 7.7-5 8.5 mIU/m L . Not Available [facility] [address] [place] [address], [address], 01/15/2025 13:50:13 01/16/20 25 01/15/2025 FOLLI JOCELYN STIM. HORMO NE follicle stim. hormone 3.1 m[IU] /mL 1.5-12 .4 normal FSH EXPEC HERSON VALUE S FEMAL ES: FOLLI CULAR PHASE : 3.5 - 12.5 MIU/M L OVULA TION PHASE : 4.7 - 21.5 MIU/M L LUTEA L PHASE : 1.7 - 7.7 MIU/M L POST MENOP AUSE: 25.8 - 134.8 MIU/M L . Not Available [facility] [address] [place], [address], 01/15/2025 13:50:14 01/16/20 25 01/20/2025 STONE DORYS SIS composition SEE NOTE normal Calci um Oxala te Monoh ydrat e (Whew ellit e) 95% Carbo joseph Apati te (Dahl lite) 5% Not Available [facility] [address] [place], [address], 01/20/2025 03:06:37 01/16/20 25 01/20/2025 STONE DORYS SIS weight 0.090 g normal Forma jovita, surgi juvencio gel, tape adhes burton or trans port media inter fere with the dorys tical proce dure. Follo w up testi ng with the UroRi sk(R) Panel is sugge sted for affec herson sampl es, if clini gil indic ated. This test was devel oped and its dorys tical perfo rmanc e domitila cteri stics have been deter mined by [facility] ostumang s. It has not been clear ed or appro elisa by the FDA. This assay has been valid ated pursu ant to the CLIA regul ation s and is used for clini juvencio purpo ses. Not Available [facility] [address] [place], [address], 01/20/2025 03:06:37 01/16/20 25 01/21/2025 TESTO STERO NE, FREE testosterone , free 57.5 pg/mL 46.0-2 24.0 normal MDF med fusio n [address] [facility] [address] [place] [address] [phone] Netta Cates MD, PhD Not Available [facility] [address] [facility], [place], [address], 01/21/2025 12:22:15 01/16/20 25 01/15/2025 urina lysis panel , auto Unknown Analyte Clean Catch Not Available [facility] [address] [place] [address], [address], 01/15/2025 10:36:32 01/16/20 25 01/15/2025 urina lysis panel , auto Unknown Analyte Yellow Not Available [facility] [address] [place] [address], [address], 01/15/2025 10:36:32 01/16/20 25 01/15/2025 urina lysis panel , auto Unknown Analyte Clear Not Available [facility] [address], [place], [address], 01/15/2025 10:36:32 01/16/20 25 01/15/2025 urina lysis panel , auto Unknown Analyte 1.015 Not Available [facility] [address], [place], [address], 01/15/2025 10:36:32 01/16/20 25 01/15/2025 urina lysis panel , auto Unknown Analyte 1.003 - 1.030 Not Available [facility] [address], [place], [address], 01/15/2025 10:36:32 01/16/20 25 01/15/2025 urina lysis panel , auto Unknown Analyte 5.0 Not Available [facility] [address], [place], [address], 01/15/2025 10:36:32 01/16/20 25 01/15/2025 urina lysis panel , auto Unknown Analyte 5.0 - 8.0 Not Available [facility] [address], [place], [address], 01/15/2025 10:36:32 01/16/20 25 01/15/2025 urina lysis panel , auto Unknown Analyte Negati ve Not Available [facility] [address], [place], [address], 01/15/2025 10:36:32 01/16/20 25 01/15/2025 urina lysis panel , auto Unknown Analyte Negati ve Not Available [facility] [address], [place], [address], 01/15/2025 10:36:32 01/16/20 25 01/15/2025 urina lysis panel , auto Unknown Analyte Negati ve Not Available [facility] [address], [place], [address], 01/15/2025 10:36:32 01/16/20 25 01/15/2025 urina lysis panel , auto Unknown Analyte Negati ve Not Available [facility] [address], [place], [address], 01/15/2025 10:36:32 01/16/20 25 01/15/2025 urina lysis panel , auto Unknown Analyte Negati ve Not Available [facility] [address], [place], [address], 01/15/2025 10:36:32 01/16/20 25 01/15/2025 urina lysis panel , auto Unknown Analyte Negati ve Not Available [facility] [address], [place], [address], 01/15/2025 10:36:32 01/16/20 25 01/15/2025 urina lysis panel , auto Unknown Analyte Normal Not Available [facility] [address], [place], [address], 01/15/2025 10:36:32 01/16/20 25 01/15/2025 urina lysis panel , auto Unknown Analyte Normal Not Available [facility] [address], [place], [address], 01/15/2025 10:36:32 01/16/20 25 01/15/2025 urina lysis panel , auto Unknown Analyte Negati ve Not Available [facility] [address], [place], [address], 01/15/2025 10:36:32 01/16/20 25 01/15/2025 urina lysis panel , auto Unknown Analyte Negati ve Not Available [facility] [address], [place], [address], 01/15/2025 10:36:32 01/16/20 25 01/15/2025 urina lysis panel , auto Unknown Analyte Normal Not Available [facility] [address], [place], [address], 01/15/2025 10:36:32 01/16/20 25 01/15/2025 urina lysis panel , auto Unknown Analyte Normal Not Available [facility] [address], [place], [address], 01/15/2025 10:36:32 01/16/20 25 01/15/2025 urina lysis panel , auto Unknown Analyte Negati ve Not Available [facility] [address], [place], [address], 01/15/2025 10:36:32 01/16/20 25 01/15/2025 urina lysis panel , auto Unknown Analyte Negati ve Not Available [facility] [address], [place], [address], 01/15/2025 10:36:32 01/16/20 25 01/15/2025 urina lysis panel , auto Unknown Analyte 250 Jeremías/uL Not Available [facility] [address], [place], [address], 01/15/2025 10:36:32 01/16/20 25 01/15/2025 urina lysis panel , auto Unknown Analyte Negati ve Not Available [facility] [address] [place] [address] Rd [address], [place], [address], 01/15/2025 10:36:32 05/17/20 25 05/17/2025 urina lysis panel , auto Unknown Analyte Clean Catch Not Available [facility] [address], [place], [address], 05/17/2025 15:56:43 05/17/20 25 05/17/2025 urina lysis panel , auto Unknown Analyte Yellow Not Available [facility] [address], [place], [address], 05/17/2025 15:56:43 05/17/20 25 05/17/2025 urina lysis panel , auto Unknown Analyte Clear Not Available [facility] [address], [place], [address], 05/17/2025 15:56:43 05/17/20 25 05/17/2025 urina lysis panel , auto Unknown Analyte 1.025 Not Available [facility] [address], [place], [address], 05/17/2025 15:56:43 05/17/20 25 05/17/2025 urina lysis panel , auto Unknown Analyte 1.003 - 1.030 Not Available [facility] [address], [place], [address], 05/17/2025 15:56:43 05/17/20 25 05/17/2025 urina lysis panel , auto Unknown Analyte 5.0 Not Available [facility] [address], [place], [address], 05/17/2025 15:56:43 05/17/20 25 05/17/2025 urina lysis panel , auto Unknown Analyte 5.0 - 8.0 Not Available [facility] [address], [place], [address], 05/17/2025 15:56:43 09/22/20 25 05/17/2025 urina lysis panel , auto Unknown Analyte Negati ve Not Available [facility] [address], [place], [address], 05/17/2025 15:56:43 05/17/20 25 05/17/2025 urina lysis panel , auto Unknown Analyte Negati ve Not Available [facility] [address] [place] [address] Rd [address], [place], [address], 05/17/2025 15:56:43 05/17/20 25 05/17/2025 urina lysis panel , auto Unknown Analyte Negati ve Not Available [facility] [address] [place] [address] Rd [address], [place], [address], 05/17/2025 15:56:43 05/17/20 25 05/17/2025 urina lysis panel , auto Unknown Analyte Negati ve Not Available [facility] [address] [place] [address] Rd [address], [place], [address], 05/17/2025 15:56:43 05/17/20 25 05/17/2025 urina lysis panel , auto Unknown Analyte Negati ve Not Available [facility] [address], [place], [address], 05/17/2025 15:56:43 05/17/20 25 05/17/2025 urina lysis panel , auto Unknown Analyte Negati ve Not Available [facility] [address], [place], [address], 05/17/2025 15:56:43 05/17/20 25 05/17/2025 urina lysis panel , auto Unknown Analyte Normal Not Available [facility] [address], [place], [address], 05/17/2025 15:56:43 05/17/20 25 05/17/2025 urina lysis panel , auto Unknown Analyte Normal Not Available [facility] [address], [place], [address], 05/17/2025 15:56:43 05/17/20 25 05/17/2025 urina lysis panel , auto Unknown Analyte Negati ve Not Available [facility] [address], [place], [address], 05/17/2025 15:56:43 05/17/20 25 05/17/2025 urina lysis panel , auto Unknown Analyte Negati ve Not Available [facility] [address], [place], [address], 05/17/2025 15:56:43 05/17/20 25 05/17/2025 urina lysis panel , auto Unknown Analyte Normal Not Available [facility] [address], [place], [address], 05/17/2025 15:56:43 05/17/20 25 05/17/2025 urina lysis panel , auto Unknown Analyte Normal Not Available [facility] [address], [place], [address], 05/17/2025 15:56:43 05/17/20 25 05/17/2025 urina lysis panel , auto Unknown Analyte Negati ve Not Available [facility] [address] [place] [address], [address], 05/17/2025 15:56:43 05/17/20 25 05/17/2025 urina lysis panel , auto Unknown Analyte Negati ve Not Available [facility] [address] [place] [address], [address], 05/17/2025 15:56:43 05/17/20 25 05/17/2025 urina lysis panel , auto Unknown Analyte 50 Jeremías/uL Not Available [facility] [address] [place] [address], [address], 05/17/2025 15:56:43 05/17/20 25 05/17/2025 urina lysis panel , auto Unknown Analyte Negati ve Not Available [facility] [address], [address], 05/17/2025 15:56:43 Result Notes None recorded. Procedures Surgical History Date Name Laterality Status Provider Name and Address Organization Details Recorded Time [place] [facility] [place] 10:56:31 [place] [facility] [place]/18/2024 10:57:27 insertion of stent into ureter [place] [facility] [place]/18/2024 10:57:52 Imaging Results None recorded. Procedure [...] and Address Organization Details Last Updated DateTime 12/18/2024 187.96 cm 44.9 kg/m2 022361.33 g Darleen Carlson [facility] 12/18/2024 10:53:08 Date Recorded Body height Body mass index (BMI) Body weight Provider Name and Address Organization Details Last Updated DateTime 01/15/2025 187.96 cm 44.9 kg/m2 984529.33 g Elizabeth Javier [facility] 01/15/2025 11:59:08 Date Recorded Body height Body mass index (BMI) Body weight Provider Name and Address Organization Details Last Updated DateTime 05/17/2025 187.96 cm 44.9 kg/m2 548558.33 g Tish Lozoya [facility] 05/17/2025 15:57:52 Social History Question Answer Notes LastModified by [employer] Details LastModified Time Tobacco Smoking Status Former Smoker Not Available [employer] 12/18/2024 10:21:14 When Did You Quit Smoking? 1-5yearssinc elastcigaret te [email or web address] Information not available 12/18/2024 What Was The Date Of Your Most Recent Tobacco Screening? 01/15/2025 [email or web address] Information not available 01/15/2025 What Is Your Relationship Status? [email or web address] Information not available 12/18/2024 At What Age Did You Start Smoking Tobacco? 21 [email or web address] Information not available 12/18/2024 How Many Years Have You Smoked Tobacco? 13 [email or web address] Information not available 12/18/2024 Sex: Unknown Functional Status Question Answer Note LastModified by [employer] Details LastModified Time How many times per week do you consume alcohol? Less than 1 time per week [email or web address] Information not available 12/18/2024 What is your level of alcohol consumption? Occasional [email or web address] Information not available 12/18/2024 Are you currently employed? 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 [employer] [email or web address] Information not available 12/18/2024 Mental Status [...] ICD10 Code Diagnosis IMO Codes Diagnosis Note [id number] MD MAURISIO LAUREANO [facility] [address] [address] 0 12/18/2024 10:21:13 12/18/2024 11:25:14 Kidney stone [id number] N20.0 82648 Plan as above [id number] MD MAURISIO [facility]UREANO [facility] [address] [address] 0 01/15/2025 10:31:25 01/15/2025 12:33:39 Kidney stone [id number] N20.0 08992 Plan as above Male hypogonadism 417924 06 E29.1 [id number] Follow-up 2 months [id number] MD MAURISIO [facility]UREANO [facility] [address] [address] 0 05/17/2025 15:25:12 05/17/2025 16:55:37 Kidney stone [id number] N20.0 09353 Plan as above Male hypogonadism 538142 06 E29.1 [id number] Follow-up 6 months Health Concerns Section Related Observation LastModified by Organization Detai ls LastModified Time None Recorded Concern Status LastModified by Organization Details LastModified Time None Recorded Advance Directives Directive None Recorded Payers Insurance Date Sequence Insurance Name Policy Number Policy Connell Covered Member ID Connell Member ID Guarantor Name 05/14/2025 1 [place] [id number] Gus Dash [id number] Gus Dash Notes Date Note Type Note Provider Name and Address Organization Details Recorded Time 12/18/2024 text/html Patient is here for initial visit regarding urolithiasis. He was referred by Dr. Ekaterina Tinoco from [place] for recently noted urolithiasis. He has previous history of stones. He had a CT scan which revealed multiple stones on the right side the largest 1 being 11 mm. He has 2 small stones on the left side. His urine today is unremarkable. We discussed proceeding with right sided shockwave lithotripsy. We will anticipate doing this without ureteral stent placement. Stones on the left are small with the largest 1 being approximately 3 mm. We will follow the stones on the left. We discussed shockwave lithotripsy. He understands wished to proceed[place], [address], [facility] 12/23/2024 00:28:07 01/15/2025 text/html Patient is here in follow-up of recent shockwave lithotripsy. We discussed further evaluation and he brought in stone material for analysis. He also would like to undergo urine collection for further assessment of stone prevention he also recently had a very low testosterone level at 256. He was on Depo testosterone intramuscular injection every other week 2 years ago but his PCP discontinued eventually has had severe fatigue and also subjectively less strength. I suggest we start him on Xyosted but will repeat his levels today. MEENU MAIER [place] [facility] [place], [address], [facility] 01/15/2025 15:09:51 05/17/2025 text/html Patient is here in follow-up [...] of water today already. MEENU MAIER MD [facility] [place], [address], [facility] 05/18/2025 07:05:17
--- OUTSIDE RECORDS SUMMARY | 2025-07-18 15:50 | XMS_ITS | Clinical Summary ---
Author Organization [facility] , [facility] Address [address] [place] [address] Phone Care Team Providers Care Clinical Pharmacy Manager Name Role Phone HERIBERTO SAN Unavailable [phone] Marcio ALFRED, Stanislav Pittman Unavailable [phone] Reason for Visit and Chief Complaint [Patient Encounter] Problems Includes: Problems addressed during this encounter and other active Problems All Visits Onset Date Resolved Date Provider Condition S tatus Soft Tissue Hip Pain Radiating 05/12/2019 Stanislav Buckley MD Active Last Documented On 9 2:35PM ; [facility] Plan of Treatment No Plan of Treatment Recorded Assessments Includes: Assessments from this encounter No Assessments Recorded Medical Equipment - Implanted Devices Includes: Current Devices No Medical Equipment Recorded Medications Includes: Medications discussed during this encounter and other current Medications Current Medications (continue as prescribed) Allopurinol 100 MG Oral Tablet 06/22/2019 Provider: Diagnosis: Last Documented On 9 2:53PM By Sammy Navarro [facility] Lisinopril 10 MG Oral Tablet 05/30/2019 Provider: KENNEDY LYN Diagnosis: Last Documented On 9 2:53PM By Sammy Hurt ; [facility] Medications Administered Includes: Administered Medications from [...] Diagnosis [Patient Encounter] Lauri Salazar MD [facility] Surgical Division 0 3:23PM 11:59PM Insurance Includes: Active Insurance Policies Plan Name Member ID Group # Subscriber Relationship Effect burton Dates [id number] MATTHEW RODRIGUEZ Self 08/26/2019 - Unknown Clinical Notes Includes: Clinical Notes from this encounter No Clinical Notes Recorded
--- OUTSIDE RECORDS SUMMARY | 2025-07-18 15:50 | XMS_ITS | Encounter Summary ---
Author Organization [facility] Address [address] [place] [address] Phone [email or web address] Care Team Providers Care Party Plan Sales Host/Hostess Name Role Phone Ekaterina Tinoco MD Primary Care Provider [phone] Encounter Details Date Type Department Care Team (Late st Contact Info) Description 07/16/2025 Telephone [facility] Line Side Nursing Power Train [address] [place] [address] Jg Alejandro RN [address] [place] [address] Social History Tobacco Use Types [...] encounter Miscellaneous Notes * Telephone Encounter - Jg Alejandro RN - 07/16/2025 4:42 PM EST Phone call to Dr. Winston office to get work status and office notes. Spoke with Shannan. Dr. Elaine actually gave patient the injection to the patient. He has not seen Dr. Winston since 06/29/2025. Flavia Gregorio RN ON JUNCTURE GRINDER documented in this encounter Plan of Treatment Upcoming Encounters Date Type Department Care Team (Late st Contact Info) Description 07/19/2025 1:30 PM EST Occ Treatment [facility]/ [address] [facility] [place] [address] Hilton Fiore, PT [address] [place] [address] 07/20/2025 1:30 PM EST Occ Treatment [facility] PT [facility]/ [address] [place] [address] Hilton Fiore, PT [address] [place] [address] 08/13/2025 11:30 AM EST Occ Office Visit [facility] Line Side Nursing Power Train [address] [place] [address] Leonarda Henry PA [address] [place] [address] documented as of this encounter Visit Diagnoses Not on filedocumented in this encounter Care Teams Party Plan Sales Host/Hostess Relationship Specialty Start Date End Date Ekaterina Tinoco MD [address] [place] [address] PCP - General Sewer System Supervisor 01/06/20 documented as of this encounter
--- OUTSIDE RECORDS SUMMARY | 2025-07-18 15:50 | XMS_ITS | Encounter Summary ---
Author Organization [facility] Address [address] [place] [address] Care Team Providers Care Life Assurance Representative Name Role Phone Ekaterina Tinoco MD Primary Care Provider [phone] Encounter Details Date Type Department Care Team (Late st Contact Info) Description 06/08/2025 Telephone [facility] Orthopaedic Surgery & Sports Medicine [address], [address] [place] [address] Eleuterio Winston MD [address] [place] [address] Social History Tobacco Use Types [...] place to sleep or slept in a halfway (including now)? No 11/11/2023 PHQ-9 Answer Date [...] any time in the past 12 m [facility], were you homeless or living in a halfway (including now)? No 12/07/2024 Safety and Environment [...] encounter Miscellaneous Notes * Telephone Encounter - Gauri Julienla Peterson - 06/08/2025 8:30 AM EDT expalined was still needing wc auth for this visit patient stated he will be calling his clerical adjuster and has approval in his packet documented in this encounter Plan of Treatment Upcoming Encounters Date Type Department Care Team (Late st Contact Info) Description 08/12/2025 9:20 AM EST Office Visit [facility] Orthopaedic Surgery & Sports Medicine [address], [address] [place] [address] Eleuterio Winston MD [address] [place] [address] 10/11/2025 3:20 PM EST Office Visit [facility] [address] [place] [address] Ekaterina Tinoco MD [address] [place] [address] documented as of this encounter [...] documented as of this encounter Care Teams Life Assurance Representative Relationship Specialty Start Date End Date Ekaterina Tinoco MD [address] [place] [id number] PCP - General Family Medicine 12/06/23 documented as of this encounter
--- OUTSIDE RECORDS SUMMARY | 2025-07-18 15:50 | XMS_ITS | Encounter Summary ---
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 Injection today. Has work excuse for time off today. He will follow up as scheduled on Saturday. Notes to be scanned. Appt with for follow up : 08/12 at 0920. Jackeline Santos Rn LABORER documented in this encounter Plan of Treatment Upcoming Encounters Date Type Department Care Team (Late st Contact Info) Description 07/19/2025 1:30 PM EST Occ Treatment [facility]/ [address] [place] [address] Hilton Fiore, PT [address] [place] [address] 07/20/2025 1:30 PM EST Occ Treatment [facility] PT WC/ [address] [place] [address] Hilton Fiore, PT [address] [place] [address] 08/13/2025 11:30 AM EST Occ Office Visit [facility] Line Side Nursing Power Train [address] [place] [address] Leonarda Henry, RADHA [address] [place] [address] documented as of this encounter Visit Diagnoses Not on filedocumented in this encounter Care Teams Trim Master Operator Relationship Specialty Start Date End Date Ekaterina Tinoco MD [address] [place] [address] PCP - General Tariff Clerk 01/06/20 documented as of this encounter
--- OUTSIDE RECORDS SUMMARY | 2025-07-18 15:50 | XMS_ITS | Encounter Summary ---
Author Organization [facility] Address [address] [place] [address] Care Team Providers Care Doper Operator Name Role Phone Ekaterina Tinoco MD Primary Care Provider [phone] Encounter Details Date Type Department Care Team (Latest Contact Info) Description 07/14/2025 Travel Social History Tobacco Use Types Packs/Day [...] place to sleep or slept in a longterm (including now)? No 11/11/2023 PHQ-9 Answer Date [...] any time in the past 12 m [facility], were you homeless or living in a longterm (including now)? No 12/07/2024 Safety and Environment [...] [place] [facility] [address] [place] [address] Eleuterio Winston MD [address] [facility] [address] [place] [address] 10/11/2025 3:20 PM EST Office Visit [facility] [address] [place] [address] Ekaterina Tinoco MD [address] [place] [address] documented as of this encounter [...] documented as of this encounter Care Teams Doper Operator Relationship Specialty Start Date End Date Ekaterina Tinoco MD [address] [place] [address] PCP - General Family Medicine 12/06/23 documented as of this encounter
--- OUTSIDE RECORDS SUMMARY | 2025-07-18 15:51 | XMS_ITS | Clinical Summary ---
Author Organization [facility] , [facility] Address [address] [place] [address] Phone Care Team Providers Care Welder/Fitter Name Role Phone HERIBERTO SAN Unavailable [phone] Marcio ALFRED, Stanislav Pittman Unavailable [phone] Reason for Visit and Chief Complaint The Chief Complaint is: Back Pain Problems Includes: Problems addressed during this encounter and other active Problems All Visits Onset Date Resolved Date Provider Condition S tatus Soft Tissue Hip Pain Radiating 05/12/2019 Stanislav Buckley MD Active Last Documented On 9 2:35PM ; [facility] Plan of Treatment Patient was seen by myself Jimy Sheikh PA-C. Patient will follow up 4 weeks continue to walk mary out today. There is right hip pain will hopefully come just resolve over time and over the next 4 weeks - Last Documented On 11/25/2019 2:06PM ; [facility] Instructions to patient Instructions for patient See PCP for BP and weight loss Last Documented On 0 11:32AM ; [facility] Assessments Includes: Assessments from this encounter Findings L5-S1 microdiscectomy November 06, 2019 - Last Documented On 11/25/2019 2:06PM ; [facility] Instructions Includes: Instructions from this encounter Instructions to patient Instructions for patient See PCP for BP and weight loss Last Documented On 0 11:32AM ; [facility] Medical Equipment - Implanted Devices Includes: Current Devices No Medical Equipment Recorded Medications Includes: Medications discussed during this encounter and other current Medications Current Medications (continue as prescribed) Allopurinol 100 MG Oral Tablet 06/22/2019 Provider: Diagnosis: Last Documented On 9 2:53PM By Sammy Hurt ; [facility] Lisinopril 10 MG Oral Tablet 05/30/2019 Provider: KENNEDY LYN Diagnosis: Last Documented On 9 2:53PM By Sammy Hurt ; [facility] Past Medications on file Percocet 5-325 MG OR TABS 11/04/2019 - 11/19/2019 Prov ider: Lauri Salazar MD Diagnosis: prn pain Last Documented On 0 2:39PM By Vicki Johnson ; [facility] Protonix 40 MG Oral Tablet Delayed Release 07/14/2019 - 08/13/2019 Provider: Stanislav Buckley MD Diagnosis: once a day Last Documented On 9 12:06PM By Sammy Hurt ; [facility] Ibuprofen 600 MG Oral Tablet 07/14/2019 - 08/13/2019 P jjder: Stanislav Buckley MD Diagnosis: Take 1 tablet every 8 hrs prn pain Last Documented On 9 12:08PM By Sammy Hurt ; [facility] Medrol 4 MG Oral Tablet Ther apy Pack 06/24/2019 - 07/24/2019 Provider: Stanislav Buckley MD Diagnosis: take as directed by medrol dose pack Last Documented On 9 3:45PM By Sammy Hurt ; [facility] Medications Administered Includes: Administered Medications from this encounter No Administered Medications Recorded Vital Signs Includes: Vital Signs from this encounter Vital Name 11/20/2019 11:25A Blood Pressure Sitting (mmHg) 153/96 Pulse Rate-Sitting (bpm) 76 Height (in) 74 Weight (lb) 370 Body Mass Index (kg/m2) 47.5 Body Surface Area (m2) 2.8 Note: trm Last Documented: On 11/20/2019 11:32A M ; [facility] Results Includes: Results discussed during [...] 01/07/2023 Last Documented On 0 11:23AM ; [facility] No recent change in diet 09/03/2019 Last Documented On 0 11:23AM ; [facility] No tobacco use 09/03/2019 Last Documented On 0 11:23AM ; [facility] Not a current smoker quit 2 years ago Last Documented On 0 11:23AM ; [facility] Not exercising regularly 09/03/2019 Last Documented On 0 11:23AM ; [facility] Not using alcohol 09/03/2019 Last Documented On 0 11:23AM ; [facility] Not using drugs 09/03/2019 Last Documented On 0 11:23AM ; [facility] Smoking status : Former smoker quit 2 ye ars ago 09/03/2019 Last Documented On 0 11:23AM ; [facility] Procedures and Surgical History Includes: Procedures from this encounter Procedures Code Diagnosis Performing Provider Service L ocation Service Date Clinical summary provided to patient Last Documented On 0 11:23AM ; [facility] Medical History Includes: Medical History addressed during this encounter Description Last Updated kidney stent and GI scope 09/03/2019 Last Documented On 0 11:23AM ; [facility] Intermittent hypertension 09/03/2019 Last Documented On 0 11:23AM ; [facility] Family History Includes: Family History addressed during this encounter Description Last Updated Family history of diabetes mellitus 04/2020 Last Documented On 0 11:23AM ; [facility] Review of Systems Includes: Review of [...] Diagnosis Post Op Lauri Salazar MD [facility] 0 10:28AM 11:51AM Insurance Includes: Active Insurance Policies Plan Name Member ID Group # Subscriber Relationship Effect burton Dates 1 - [facility] [id number] MATTHEW Cloud 08/26/2019 - Unknown Clinical Notes Includes: Clinical Notes from this encounter No Clinical Notes Recorded
--- OUTSIDE RECORDS SUMMARY | 2025-07-18 15:51 | XMS_ITS | Encounter Summary ---
Author Organization [facility] Address [address] [place] [address] Care Team Providers Care Pbx Technician Name Role Phone Ekaterina Tinoco MD Primary Care Provider [phone] Reason for Visit * Reason Onset Date Comments HCN - Patient Message 07/13/2025 Encounter Details Date Type Department Care Team (Late st Contact Info) Description 07/13/2025 Telephone [facility] Orthopaedic Surgery & Sports Medicine [address] [place] [address] Eleuterio Winston MD [address] [facility] [address] [place] [address] HCN - Patient Message Social [...] place to sleep or slept in a prison (including now)? No 11/11/2023 PHQ-9 Answer Date [...] any time in the past 12 m [facility], were you homeless or living in a prison (including now)? No 12/07/2024 Safety and Environment [...] the past 12 months has th e [employer], gas, oil, or water [email or web address] threatened to shut off services in your home? No 12/07/2024 PHQ-2A Answer Date Recorded Patient Health Questionnaire-2 Score 0 07/01/2023 Sex and Gender Information Value Date Recorded Sex Assigned at Not on file Legal Sex Male 6:22 PM EDT Gender Identity Not on file Sexual Orientation Not on file documented as of this encounter Miscellaneous Notes * Telephone Encounter - Roula Walker - 07/13/2025 12:44 PM EST Called patient - confirmed inj is approved by * Telephone Encounter - Peggy Pickering - 07/13/2025 12:03 PM EST Clinical Concern/Question Reason for Call: Dr Winston patient is calling. He is wanting to know if his injection for tomorrow was approved by the workers comp. He is requesting a call back. Best contact number: [phone] (mobile) Optimal time of day to reach caller: ANYTIME Additional comments/information from caller: None Note: Please do not reply to this message. Follow-up communication and further actions as a result of this message need to be communicated with the patient directly, if the patient is not active onMyChart. If the patient is active on MyChart, they will receive notification of the communication/outcome via MyChart. documented in this encounter Plan of Treatment Upcoming Encounters Date Type Department Care Team (Late st Contact Info) Description 08/12/2025 9:20 AM EST Office Visit [facility] Orthopaedic Surgery & Sports Medicine [address], [address] [place] [address] Eleuterio Winston MD [address] [place] [address] 10/11/2025 3:20 PM EST Office Visit [facility] [address] [place] [address] Ekaterina Tinoco MD [address] [place] [address] documented as of this encounter Visit [...] documented as of this encounter Care Teams Pbx Technician Relationship Specialty Start Date End Date Ekaterina Tinoco MD [address] [place] [address] PCP - General Family Medicine 12/06/23 documented as of this encounter
--- OUTSIDE RECORDS SUMMARY | 2025-07-18 15:51 | XMS_ITS | Clinical Summary ---
Author Organization [facility] [place] Address [address] [place] [address] Care Team Providers Care Edge Glue Machine Tender Name Role Phone Ekaterina Tinoco MD Primary Care Provider Allergies No known active allergies Medications Needle, Disp, (BD Disp [place]) 27G X 1/2 miscIndications: Low testosterone in male 1 applicator every 14 (fourteen) days. 2 each 3 06/25/20 22 Active Insulin Syringe-Needle U-100 (B-D INSULIN SYRINGE 1CC/27G) 27G X 1/2 1 ML miscIndications: Low testosterone in male 1 application every 14 (fourteen) days. 2 each 3 06/25/20 22 Active Needle, Disp, 22G X 1 miscIndications: Low testosterone 1 each every 14 (fourteen) days. 6 each 2 09/05/19 23 Active B-D DISP NEEDLE 30GX1 30G X 1 misc USE TO INJECT TESTOSTERONE 09/05/19 23 Active B-D 3CC LUER-TENISHA SYR 31DS7-4/2 18G X 1-1/2 3 ML misc USE TO DRAW UP TESTOSTERONE 09/20/19 23 Active allopurinol (Zyloprim) 100 MG tabletIndication s:Gout, unspecified cause, unspecified chronicity, unspecified site Take 1 tablet by mouth daily. 90 tablet 3 04/09/20 25 Active chlorthalidone (Hygroton) 25 MG tabletIndication s:Essential (primary) hypertension Take 1 tablet by mouth daily. 90 tablet 3 04/09/20 25 Active losartan (Cozaar) 50 MG tabletIndication s:Essential (primary) hypertension Take 1 tablet by mouth daily. 90 tablet 3 04/09/20 25 Active Xyosted 100 MG/0.5ML solution auto-injector Inject under the skin every 7 days. 01/21/20 25 Active Tirzepatide-Weig ht Management (Zepbound) 15 MG/0.5ML solution auto-injectorInd ications:Class 3 severe obesity without serious comorbidity with body mass index (BMI) of 40.0 to 44.9 in adult, unspecified obesity type Inject 15 mg under the skin 1 time per week. 6 mL 3 04/09/20 25 Active cyclobenzaprine (Flexeril) 5 MG tablet Take 1 tablet by mouth daily as needed. 05/10/20 Active meloxicam (Mobic) 15 MG tablet Take 1 tablet by mouth. 05/31/20 25 025 Hospital, Clinic, or Other Facility Administered Medication Ordered Dose Route Frequency Start Date End Date Status ropivacaine (Naropin) injection 1 mLIndications:Bicipi zack tendinitis, right shoulder 1 mL IJ Once PRN Procedure 07/14/2025 07/14/2025 Ended lidocaine (Xylocaine) 1 % injection 10 mgIndications:Bicipi zack tendinitis, right shoulder 10 mg IX Once PRN Procedure 07/14/2025 07/14/2025 Ended methylPREDNISolone acetate (DEPO-Medrol) injection 40 mgIndications:Bicipi zack tendinitis, right shoulder 40 mg IX Once PRN Procedure 07/14/2025 07/14/2025 Ended Active Problems Problem Noted Date Diagnosed Date Hypomagnesemia 04/09/2022 Overview (04/09/2022): - continue to monitor and replete as necessary Prediabetes 04/08/2022 Overview (04/10/2022): - On metformin 500 twice daily - patient hyperglycemic to 276, likely related to infection - hyperglycemia improved with home metformin PLAN - continue home metformin - SSI, continue to monitor Class 3 severe obesity witho ut serious comorbidity with body mass index (BMI) of 40.0 to 44.9 in adult 04/08/2022 Overview (04/08/2022): BMI of 54 It complicates all aspects of care - would benefit from outpatient counseling Essential (primary) hypertension 05/19/2018 Overview (04/08/2022): On losartan 50 mg daily at home - continue home blood pressure medication History of kidney stones 01/15/2018 Overview (04/08/2022): Patient on allopurinol 100 mg a day - continue home allopurinol Resolved Problems Problem Noted Date Diagnosed Date Resolved Date Problem with vascular access 04/10/2022 05/14/2022 Overview (04/12/2022): - difficult vascular access - vascular access team placed US guided IV 04/09 - stopped drawing PLAN - consulted vascular access team for IV - morning labs pending Cellulitis of neck 04/08/2022 Overview (04/12/2022): - noted on Saturday04/02/2022 - started on Bactrim. [facility] preformed I&D on 04/06/2022. - Touched base with [facility] for potential culture during I&D on 04/06 however no culture was drawn - Pain and redness worsening per patient, denies fever - CT 04/08 demonstrated: No abscess identified. Fat stranding and skin thickening most significant in the posterior soft tissues. - Blood cultures obtained in the ED no growth - Started on vancomycin 04/08 discontinued 04/10 - MRSA swab negative - US of the neck soft tissue: cellulitis, 4mm subdermal and 2mm dermalechogenic and hypoechoic foci with posterior acoustic enhancement - abscess culture and gram stain showed MRSA - status post I&D done by general surgery on 04/11 PLAN: - transition cefepime (started 04/08) to bactrim on 04/12. - continue to monitor Tachycardia 04/08/2022 05/14/2022 Overview (04/09/2022): - EKG 04/02 sinus rhythm - likely due to pain vs sepsis - patient meeting sepsis criteria, status post fluid bolus PLAN - Oxycodone 10mg scheduled Q6 for pain - oxycodone 10mg PRN Q6 for breakthrough pain - continue to monitor Sepsis 04/08/2022 05/14/2022 Overview (04/11/2022): - White count of 11.4, T 99 , RR 21, HR 107 04/08 with Source of infection being skin cellulitis - Patient meeting sepsis criteria on admission - Blood cultures one draw no growth - status post fluid resuscitation - clinically improving, patient not toxic appearing PLAN: - continue cefepime Cellulitis and abscess of neck 04/08/2022 04/08/2022 Encounters Date Type Department Care Team Description 07/16/2025 Telephone [facility] [address] [place] [address], [address] [place] [address] Eleuterio Winston MD HCN - Patient Message 07/14/2025 8:15 AM EST Procedure Visit [facility] [address] [place] [address], [address] [place] [address] Maynor Guerra MD Bicipital tendinitis, right shoulder (Primary Dx) 07/14/2025 Orders Only External Location [address] [place] [address] Provider, External 07/14/2025 Travel 07/13/2025 Telephone [facility] [address], [address] [place] [address] Eleuterio Winston MD HCN - Patient Message 06/29/2025 3:40 PM EST Office Visit [facility] [address] [place] [address] Eleuterio Winston MD Bicipital tendinitis, right shoulder (Primary Dx); Dyskinesis of right scapula 06/29/2025 Travel 06/25/2025 10:12 AM EDT - 06/25/2025 11:59 PM EDT Hospital Encounter [facility] [address] [place] [address] Injury of right shoulder, initial encounter Discharge Disposition: Home or Self Care 06/25/2025 Travel 06/10/2025 8:10 AM EDT Office Visit [facility] [address], [address] [place] [address] Eleuteroi Winston MD Injury of right shoulder, initial encounter (Primary Dx); Bicipital tendinitis, right shoulder 06/10/[address] [facility] [address], [address] [place] [address] Eleuterio Winston MD 06/10/2025 Travel 06/08/[address] [facility] [address], [address] [place] [address] Eleuterio Winston MD 05/10/2025 Orders Only External Location [address] [place] [address] Provider, External 05/10/2025 Outside Procedure External Location [address] [place] [phone] Provider, [facility] from Last 3 Months Immunizations Immunization Administration Dates Next Due Tdap 03/03/2024,02/29/2012 Family History Medical History Relation Name Comments Diabetes Father Diabetes Father's Brother Diabetes Father's Sister Hypertension, benign Mother Diabetes Mother's Sister Relation Name Status Comments Father Father's Brother Father's Sister Mother Mother's Sister Social History Tobacco Use Types Packs/Day Years [...] any time in the past 12 [facility], were you homeless or living in [...] Pressure 127/83 07/14/2025 8:00 AM EST Pulse 90 04/09/2025 3:03 PM EDT Temperature 37 C (98.6 F) 04/09/2025 3:03 PM EDT Respiratory Rate 14 04/09/2025 3:03 PM EDT Oxygen Saturation 96% 04/09/2025 3:03 PM EDT Inhaled Oxygen Concentration - - Weight 161 kg (354 lb) 07/14/2025 8:00 AM EST Height 188 cm (6' 2 ) 07/14/2025 8:00 AM EST Body Mass Index 45.45 07/14/2025 8:00 AM EST Plan of Treatment Upcoming Encounters Date Type Department Care Team (Late st Contact Info) Description 08/12/2025 9:20 AM EST Office Visit [facility] [address], [address] [place] [address] Eleuterio Winston MD [address] [place] [address] 10/11/2025 3:20 PM EST Office Visit [facility] [address] [place] [address] Ekaterina Tinoco MD [address] [place] [address] Health Maintenance Due Date Last Done Comments [facility]-/Child/Adol SDOH Screenings 1990 [facility]-Hepatitis B Vaccines (1 of 3 - 19+ 3-dose series) 2009 HPV Vaccines (1 - 3-dose SCDM series) 2017 [facility]-Influenza Vaccine (#1) 2025 [facility]- SDOH Screenings 06/08/2025 [facility]-Adult SDOH Screenings 06/08/2025 12/07/2024 [facility]-Depression Screening 12/07/2025 025, 12/07/2024, 06/06/2021 [facility]-Diabetes: Hemoglobin A1C 12/07/2025 12/07/2024, 07/01/2023, 12/17/2022, Additional history exists [facility]-DTaP,Tdap,and Td Vaccines (3 - Td or Tdap) 03/03/2034 03/03/2024, 02/29/2012 [facility]-Zoster Vaccines (1 of 2) 2040 [facility]-HIV Screening Completed 12/04/2022, 05/31/2021 [facility]-Hepatitis C Screening Completed 12/04/2022, 01/2021 [facility]-Obesity Intervention Completed 025, 06/10/2025, 12/07/2024, Additional history exists LAT-LBLYB-80 Vaccine Discontinued [facility]-HIB Vaccines Aged Out No longer e ligible based on patient's age to complete this topic [facility]-Hepatitis A Vaccines Aged Out No longer eligible based on patient's age to complete this topic [facility]-IPV Vaccines Aged Out No longer e ligible based on patient's age to complete this topic [facility]-Pneumococcal Vaccine: Pediatrics (0 to 5 Years) and At-Risk Patients (6 to 49 Years) Aged Out No longer eligible based on patient's age to complete this topic [facility]-Rotavirus Vaccines Aged Out No lo nger eligible based on patient's age to complete this topic [facility]-Varicella Vaccines Discontinued Procedures Procedure Name Priority Date/Time Associated Diagnosis Comments HAND/UPPER EXTREMITY INJECTION/ARTHROCENTESI S Routine 07/14/2025 8:15 AM EST Bicipital tendinitis, right shoulder POC ULTRASOUND 07/14/2025 MR SHOULDER RIGHT WO IV CONTRAST Routine 06/25/2025 11:30 AM EDT Injury of right shoulder, initial encounter XR OUTSIDE IMAGES 05/10/2025 3:1 0 PM EDT XR SHOULDER RIGHT 2+ VIEWS 05/10/2025 3:08 PM EDT HEMOGLOBIN A1C Routine 12/07/2024 4:13 PM EDT Essential (primary) hypertension Prediabetes Routine general medical examination at a health care facility HEPATITIS C ANTIBODY - ED W/REFLEX TO HCV QUANT PCR STAT 12/04/2022 6:16 PM EDT HIV 1/2 ANTIBODY/ANTIGEN SCREEN WITH REFLEX TO HIV I/II DIFFERENTIATION STAT 12/04/2022 6:16 PM EDT from Last 3 Months or Most Recently Relevant to Health Maintenance Results * POC Imaging (07/14/2025) Anatomical Region Laterality Modality Pelvis Other 07/14/2025 us External Provider IMG POINT OF CARE ULTRASOUND F inal Result * MR Shoulder Right wo IV Contrast [...] cuff is intact with no evidence of [id number] or full thickness tearing. The long head [...] 06/25/2025 2:02 PM Final report signed by Troy Robbins MD on 06/25/2025 3:22 PM us Agatha Gibson APRN IMG MRI PROCEDURES Final Result * XR OUTSIDE IMAGES (05/10/2025 3:10 PM EDT) Anatomical Region Laterality Modality Radiographic Nina ging 05/10/2025 3:10 PM EDT us External Provider IMG XR PROCEDURES Edited Resul t - Final * XR Shoulder Right 2+ Views (05/10/2025 3:08 PM EDT) Anatomical Region Laterality Modality Upper Extremities, Shoulder Right Digi zack Radiography 05/10/2025 3:08 PM EDT Narrative 05/10/2025 4:27 [place] [address] Name: GUS DASH Exam Date: 05/10/2025 : 1990 Age 35 years Gender: M Physician: MAYNOR ALMENDAREZ Facility: [facility] Facility HSV: Outpatient Exam: SHOULDER COMP MIN [...] Zelalem Rangel 05/10/2025 Thank you for referring GUS DASH to [facility]. Legally authenticated by EYAD SWANSON 2025-05-10 16:22:34 Procedure Note Provider, [facility] - 05/10/2025 [place] [address] Name: GUS DASH Exam Date: 05/10/2025 : 1990 Age 35 years Gender: M Physician: MAYNOR ALMENDAREZ Facility: [facility] Facility HSV: Outpatient Exam: SHOULDER COMP MIN [...] Zelalem Rangel 05/10/2025 Thank you for referring GUS DASH to [facility]. Legally authenticated by EYAD SWANSON 2025-05-10 16:22:34 us Generic [facility] Provider IMG XR PROCEDURES Fi nal Result * Hemoglobin A1c (12/07/2024 4:13 PM EDT) Pathologist [facility] Hemoglobin A1c 5.0 <5.7 % 12/07/2024 6:58 PM EDT [facility] Blood Venous blood specimen / Unknown Venipuncture / Unknown 12/07/2024 4:13 PM EDT 12/07/2024 4:13 PM EDT Narrative [facility] - 12/07/2024 6:58 PM EDT HA1C Interpretive Data: Diagnosis of Diabetes: Diabetic > or = 6.5% Pre-diabetic 5.7 to 6.4% Non-diabetic < or = 5.6% Glycemic Targets for Type I and Type II Diabetics: Non- Adults <7.0% Adults <6.0% Children and Adolescents <7.5% Source: [place] [employer]. Standards of medical care in diabetes,2017. Diabetes Care.2017:40 (suppl 1):S1-S135. us Ekaterina Tinoco MD LAB BLOOD ORDERABLES Final Re sult Performing Organization Address City/[facility] Co de Phone Number [facility] [address] [place] [address] * HIV 1 & 2 Antibody/Antigen Screen (12/04/2022 6:16 PM EDT) [facility] HIV 1 & 2 Antibody/Antigen Screen Non Reactive Non Reactive 12/04/2022 7:17 PM EDT [facility] Comment:Screening for HIV 1 & 2 antibodies, and P24 antigen is NONREACTIVE. No confirmatory testing is required. Blood Venous blood specimen / Unknown Venipuncture / Unknown 12/04/2022 6:16 PM EDT 12/04/2022 6:34 PM EDT us Jimy Jo MD LAB BLOOD ORDERABLES Final Result Performing Organization Address City/[facility] Co de Phone Number [facility] [address] [place] [address] * Hepatitis C Antibody - ED (12/04/2022 6:16 PM EDT) [facility] Hepatitis C Antibody Negative Negative 12/04/2022 7:17 PM EDT [facility] Blood Venous blood specimen / Unknown Venipuncture / Unknown 12/04/2022 6:16 PM EDT 12/04/2022 6:34 PM EDT Jimy Jo MD LAB BLOOD ORDERABLES Final Result [facility] [address] [place] [address] from Last 3 Months or Most Recently Relevant to Health Maintenance Additional Health Concerns Infection Onset Date Last Indicated MRSA 04/09/2022 12/04/2022 [facility] [place] [address] [facility] [place] [address] Advance Directives * Full Code (Latest Code Status on File) Date Activated Date Inactivated Comments 04/08/2022 9:49 AM 04/12/2022 5:39 PM Question Answer Comments Patient has decision-making capacity? Yes Care Teams Edge Glue Machine Tender Relationship Specialty Start Date End Date Ekaterina Tinoco MD [address] [place] [address] PCP - General Family Medicine 12/06/23
--- OUTSIDE RECORDS SUMMARY | 2025-07-18 15:51 | XMS_ITS | Encounter Summary ---
Author Organization Healthcare Address [address] [place] [address] Care Team Providers Care Registered Nurses Name Role Phone Ekaterina Tinoco MD Primary Care Provider [phone] Encounter Details Date Type Department Care Team (Late st Contact Info) Description 07/27/2024 Orders Only External Location [address] [place] [address] Provider, External Social History Tobacco Use Types Packs/Day Years Used Date Smoking Tobacco: Every Day Cigarettes 0.5 13.9 Started: 2011 Passive Smoke Exposure: Current Smokeless Tobacco: Never Alcohol Use Standard Drinks/Week Comments Never 0 (1 standard drink = 0.6 oz pur e alcohol) Humiliation, Afraid, Rape, and Kick questionnair e Answer Date Recorded Within the last year, have y ou been afraid of your partner or ex-partner? No 11/11/2023 Within the last year, have y ou been humiliated or emotionally abused in other ways by your partner or ex-partner? No Within the last year, have y ou been kicked, hit, slapped, or otherwise physically hurt by your partner or ex-partner? No 11/11/2023 Within the last year, have y ou been raped or forced to have any kind of sexual activity by your partner or ex-partner? No 11/11/2023 PHQ-2 Answer Date Recorded Patient Health Questionnaire-2 Score 0 11/11/2023 Hunger Vital Sign Answer Date Recorded Within the past 12 months, y ou worried that your food would run out before you got the money to buy more. Never true 11/11/19 24 Within the past 12 months, t he food you bought just didn't last and you didn't have money to get more. Never true 11/11/2023 PRAPARE - Transportation Answer Date Re corded In the past 12 months, has l ack of transportation kept you from medical appointments or from getting medications? No 10/24 In the past 12 months, has l ack of transportation kept you from meetings, work, or from getting things needed for daily living? No 11/11/2023 Housing Stability Vital Sign Answer Srinivas e [...] place to sleep or slept in a skilled nursing (including now)? No 11/11/2023 Safety and Environment Answer Date Kraig rded [...] shut off services in your home? No 11/11/2023 PHQ-2A Answer Date Recorded Patient Health Questionnaire-2 [...] Description 08/12/2025 9:20 AM EST Office Visit [facility] [address], [address] [place] [address] Eleuterio Winston MD [address] [place] [address] 10/11/2025 3:20 PM EST Office Visit [facility] [place] [address] Ekaterina Tin[place] [address] documented as of this encounter Procedures Procedure Name Priority Date/Time Associated Diagnosis Comments CT OUTSIDE IMAGES 07/27/2024 11:36 AM EST documented in this encounter Results * CT OUTSIDE IMAGES (07/27/2024 11:36 AM EST) Anatomical Region Laterality Modality Computed Tomogra phy 07/27/2024 11:3 6 AM EST us External Provider IMG CT PROCEDURES Edited Resul t - Final documented in this encounter Visit Diagnoses Not on filedocumented in this encounter Additional Health Concerns Infection Onset Date Last Indicated Resolved Time MRSA 04/09/2022 12/04/2022 Assessment Noted Time A fall risk assessment has been complete d for the patient 06/25/2022 3:52 PM EDT A Body Mass Index follow-up plan has been documented for the patient 11/11/2023 12:19 PM EDT documented as of this encounter Care Teams Registered Nurses Relationship Specialty Start Date End Date Ekaterina Tinoco MD [address] [place] [address] PCP - General Family Medicine 12/06/23 documented as of this encounter
--- OUTSIDE RECORDS SUMMARY | 2025-07-18 15:51 | XMS_ITS | Clinical Summary ---
Author Organization [facility] , [facility] Address [address] [place] [address] Phone Care Team Providers Care T[employer] Curer Name Role Phone HERIBERTO SAN Unavailable [phone] Marcio ALFRED, Stanislav Pittman Unavailable [phone] Reason for Visit and Chief Complaint The Chief Complaint is: Back Pain Problems Includes: Problems addressed during this encounter and other active Problems All Visits Onset Date Resolved Date Provider Condition S tatus Soft Tissue Hip Pain Radiating 05/12/2019 Stanislav Buckley MD Active Last Documented On 9 2:35PM ; [facility], [facility] Plan of Treatment Patient was [...] - Last Documented On 12/23/2019 5:36PM ; [facility], [facility] Instructions to patient Instructions for patient See PCP for weight loss Last Documented On 0 8:59AM ; [facility], [facility] Assessments Includes: Assessments from this encounter Findings L5-S1 microdiscectomy November 18, 2019 - Last Documented On 12/23/2019 5:36PM ; [facility], [facility] Instructions Includes: Instructions from this encounter Instructions to patient Instructions for patient See PCP for weight loss Last Documented On 0 8:59AM ; [facility], [facility] Medical Equipment - Implanted Devices Includes: Current Devices No Medical Equipment Recorded Medications Includes: Medications discussed during this encounter and other current Medications Current Medications (continue as prescribed) Allopurinol 100 MG Oral Tablet 06/22/2019 Provider: Diagnosis: Last Documented On 9 2:53PM By Sammy Hurt ; [facility], [facility] Lisinopril 10 MG Oral Tablet 05/30/2019 Provider: KENNEDY LYN Diagnosis: Last Documented On 9 2:53PM By Sammy Hurt ; [facility], [facility] Past Medications on file Percocet 5-325 MG OR TABS 11/04/2019 - 11/19/2019 Prov ider: Lauri Salazar MD Diagnosis: prn pain Last Documented On 0 2:39PM By Vicik Johnson ; [facility], [facility] Protonix 40 MG Oral Tablet Delayed Release 07/14/2019 - 08/13/2019 Provider: Stanislav Buckley MD Diagnosis: once a day Last Documented On 9 12:06PM By Sammy Hurt ; [facility], [facility] Ibuprofen 600 MG Oral Tablet 07/14/2019 - 08/13/2019 P rostivender: Stanislav Buckley MD Diagnosis: Take 1 tablet every 8 hrs prn pain Last Documented On 9 12:08PM By Sammy Hurt ; [facility], [facility] Medrol 4 MG Oral Tablet Ther apy Pack 06/24/2019 - 07/24/2019 Provider: Stanislav Buckley MD Diagnosis: take as directed by medrol dose pack Last Documented On 9 3:45PM By Sammy Hurt ; [facility], [facility] Medications Administered Includes: Administered Medications from this encounter No Administered Medications Recorded Vital Signs Includes: Vital Signs from this encounter Vital Name 12/17/2019 08:59A Height (in) 74 Weight (lb) 370 Body Mass Index (kg/m2) 47.5 Body Surface Area (m2) 2.8 Note: SLR Last Documented: On 12/17/2019 8:59AM ; [facility], [facility] Results Includes: Results discussed during [...] 01/07/2023 Last Documented On 0 8:58AM ; [facility] No recent change in diet 09/03/2019 Last Documented On 0 8:58AM ; [facility] No tobacco use 09/03/2019 Last Documented On 0 8:58AM ; [facility] Not a current smoker quit 2 years ago Last Documented On 0 8:58AM ; [facility], [facility] Not exercising regularly 09/03/2019 Last Documented On 0 8:58AM ; [facility] Not using alcohol 09/03/2019 Last Documented On 0 8:58AM ; [facility] Not using drugs 09/03/2019 Last Documented On 0 8:58AM ; [facility], [facility] Smoking status : Former smoker quit 2 ye ars ago 09/03/2019 Last Documented On 0 8:58AM ; [facility], [facility] Procedures and Surgical History Includes: Procedures from this encounter Procedures Code Diagnosis Performing Provider Service L ocation Service Date Clinical summary provided to patient Last Documented On 0 8:59AM ; [facility], [facility] Medical History Includes: Medical History addressed during this encounter Description Last Updated kidney stent and GI scope 09/03/2019 Last Documented On 0 8:58AM ; [facility], [facility] Intermittent hypertension 09/03/2019 Last Documented On 0 8:58AM ; [facility], [facility] Family History Includes: Family History addressed during this encounter Description Last Updated Family history of diabetes mellitus 04/2020 Last Documented On 0 8:58AM ; [facility], [facility] Review of Systems Includes: Review [...] Time Diagnosis Post Op Lauri Salazar MD [facility] 0 8:56AM 9:23AM Insurance Includes: Active Insurance Policies Plan Name Member ID Group # Subscriber Relationship Effect bur[place] Dates 1 - [facility] [id number] MATTHEW RODRIGUEZ Self 08/26/2019 - Unknown Clinical Notes Includes: Clinical Notes from this encounter No Clinical Notes Recorded
[2025-07-18 15:59] LABS: Microscopic, Urine URINE MICROSCOPIC (MICROSCOPIC)
[2025-07-18 16:01] LABS: Hematocrit 52.4 % (42.0-52.0); Hemoglobin 17.8 g/dL (14.1-18.0); Immature Granulocytes % 0.5 %; Mean Corpuscular HGB Conc 34.0 g/dL (31.8-35.4); Mean Corpuscular Hemoglobin 28.0 pg (27.0-31.2); Mean Corpuscular Volume 82.5 fl (80-94); Nucleated Red Blood Cells % 0 %; Platelet Count 249 K/mm3 (142-424); Red Blood Count 6.35 M/mm3 (4.60-6.20); Red Cell Distribution Width-SD 41.4 fL; White Blood Count 8.6 K/mm3 (4.8-10.8)
[2025-07-18 16:02] LABS: Bilirubin,Urine Negative (Negative); Color,Urine YELLOW (Yellow); Glucose,Urine (UA) Negative (Negative); Ketones,Urine TRACE (Negative); Leukocyte Esterase,Urine Negative (Negative); PH,Urine 6.0 (5.0-8.5); Protein,Urine TRACE (Negative); Specific Gravity, Urine >= 1.030 (1.005-1.030); Urobilinogen,Urine 0.2 EU/dl (0.2)
[2025-07-18 16:07] LABS: Alanine Aminotransferase 43 U/L (12-78); Albumin Level 5.0 g/dl (3.5-5.0); Albumin/Globulin Ratio 1.8 (1.1-1.8); Alkaline Phosphatase 56 U/L (38-126); Anion Gap 10.2 mEq/L (5-15); Aspartate Amino Transferase 38 U/L (17-59); Bilirubin,Total 0.9 mg/dl (0.2-1.3); Blood Urea Nitrogen 13 mg/dl (9-20); Calcium 9.6 mg/dl (8.4-10.2); Carbon Dioxide 29 mmol/L (22.0-30.0); Chloride 99 mmol/L (98-107); Creatinine Clearance Estimated 133 mL/min (50-200); Creatinine,Serum 0.90 mg/dl (0.66-1.25); Estimated Glomerular Filt Rate 96 ml/min (>60); GFR (African American) 116 ML/MIN (>60); Globulin 2.8 g/dL (1.3-3.2); Glucose 107 mg/dl (74-100); Potassium 4.2 mmoL/L (3.5-5.1); Sodium 134 mmol/L (136-145); Total Protein,Serum 7.8 g/dl (6.3-8.2)
[2025-07-18] MEDS: HYDROMORPHONE 2MG/ML SYRINGE 1 MG IV (16:12)
[2025-07-18 16:20] LABS: Bacteria,Urine 2+ /lpf; Mucus,Urine 4+ /lpf; RBC,Urine TNTC #/hpf (0-3)
[2025-07-18 16:47] VITALS: BP 136/88; PULSE 95; O2SAT 98
[2025-07-18 17:00] VITALS: BP 141/87; PULSE 91; O2SAT 96
[2025-07-18] MEDS: OXYCODONE 5MG W/APAP 325MG TABLET 1 EACH PO (17:25)
[2025-07-18 17:30] VITALS: BP 141/87; PULSE 91; RESP 18; TEMP 36.8; O2SAT 96
== END 2025-07-18 17:32 | disposition home or self-care (01) ==
PROVIDERS: Nurse Practitioner Family; Emergency Provider Student in an Organized Health Care Education/Training Program; PCP Family Medicine
DX: N13.0 Hydronephrosis with ureteropelvic junction obstruction (principal); N13.4 Hydroureter; R10.31 Right lower quadrant pain; I10 Essential (primary) hypertension; F17.210 Nicotine dependence, cigarettes, uncomplicated
CPT/HCPCS: 74176; 80053; 81001; 85025; 87086; 96361; 96374; 96375; 99285; J1171; J1885; J2405; J7030